=== PATIENT | female | born 1930 | race Caucasian/White ===

== ENCOUNTER 2016-11-17 10:42 | Emergency (ER) | payer MEDICARE ==
[2016-11-17 10:47] VITALS: RESP 20
[2016-11-17] MEDS ORDERED: SODIUM CHLORIDE 0.9% 1,000 ML IV STA (10:59)
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
[2016-11-17 11:26] LABS: Basophils # (A) 0.1 k/uL (0-0.2); Basophils % (A) 1 %; CH 29.9; Eosinophils # (A) 0.5 k/uL (0-0.7); Eosinophils % (A) 6 %; HCT 45.5 % (34.0-46.0); HDW 2.42; HGB 14.8 gm/dL (11.4-16.0); Luc # (Auto) 0.24; Luc % (Auto) 3; Lymphocytes # (A) 2.8 k/uL (1.0-4.8); Lymphocytes % (A) 30 %; MCH 30.5 pg (25.0-35.0); MCHC 32.5 g/dL (31.0-37.0); Monocytes # (A) 0.6 k/uL (0-1.0); Monocytes % (A) 6 %; Neutrophils # (A) 5.1 k/uL (1.3-7.7); Neutrophils % (A) 54 %; RBC 4.84 m/uL (3.80-5.40); RDW 12.8 % (11.5-15.5); WBC 9.4 k/uL (3.8-10.6); WBC (Perox) 9.05
[2016-11-17 11:38] LABS: ALT 20 U/L (9-52); AST 30 U/L (14-36); Alkaline Phosphatase 81 U/L (38-126); Amylase 57 U/L (30-110); Anion Gap 12 mmol/L; Blood Urea Nitrogen 17 mg/dL (7-17); Calcium 9.9 mg/dL (8.4-10.2); Carbon Dioxide 24 mmol/L (22-30); Chloride 106 mmol/L (98-107); Glucose 108 mg/dL (74-99); Non-African American GFR(MDRD) >60 (>60 ml/min/1.73 sqM); Sodium 142 mmol/L (137-145); Total Bilirubin 0.7 mg/dL (0.2-1.3); Total Protein 7.4 g/dL (6.3-8.2)
[2016-11-17 11:42] LABS: Appearance,Urine Clear (Clear); Bilirubin,Urine Negative (Negative); Glucose,Urine (UA) Negative (Negative); Ketones,Urine Negative (Negative); Leukocyte Esterase,Urine Negative (Negative); Nitrite,Urine Negative (Negative); PH, Urine 6.5 (5.0-8.0); Protein,Urine Negative (Negative); Specific Gravity,Urine 1.015 (1.001-1.035); UA Billing (MACRO vs. MICRO) CHEM; Urobilinogen,Urine <2.0 mg/dL (<2.0)
[2016-11-17 11:45] LABS: Potassium 4.8 mmol/L (3.5-5.1)
[2016-11-17 12:06] LABS: INR 1.1 (<1.1); Partial Thromboplastin Time 23.3 sec (22.0-30.0); Prothrombin Time 10.9 sec (9.0-12.0)
--- NOTE | 2016-11-17 12:27 | CT ---
EXAMINATION TYPE: CT abdomen pelvis wo con DATE OF EXAM: 11/17/2016 11:50 AM COMPARISON: NONE HISTORY: Left Lower Quadrant pain CT DLP: 606.4 mGycm Automated exposure control for dose reduction was used. TECHNIQUE: Helical acquisition of images from the lung bases through the pelvis. FINDINGS: Coronary artery calcifications are present, there may be mitral annular calcification. LUNG BASES: There is a lucency medial to the elevated right hemidiaphragm showing air density which i s indeterminate. Some minimal patchy density along the right hemidiaphragm may be due to atelectasis or scar rather than airspace disease. Subpleural nodules present in the left lower lobe measuring onl y approximately 4 mm on axial image 7 posteriorly. No pleural or pericardial effusion. AORTA: No significant abnormality is appreciated. LIVER/GB: No significant abnormality is appreciated. PANCREAS: No significant abnormality is seen. SPLEEN: No significant abnormality is seen. ADRENALS: No significant abnormality is seen. KIDNEYS: Suspect some associated cortical cysts, lack of contrast may limit sensitivity. REPRODUCTIVE ORGANS: Not seen. There is streak artifact due to patient's hip prostheses which may li pearl sensitivity. URINARY BLADDER: Limited evaluation BOWEL: There is a lucency at the expected location of the sphincter of Oddi which may be due to morales l gas but is nonspecific. No bowel obstruction. FREE AIR: No Free Air is visible. ASCITES: None visible. PELVIC ADENOPATHY: None visualized. RETROPERITONEAL ADENOPATHY: No Retroperitoneal Adenopathy visible. OSSEOUS STRUCTURES: Postop changes are noted, degenerative disc changes in the visualized spine. IMPRESSION: LIMITED EXAM DESCRIBED. POSTOP CHANGES. NONCONTRAST. FINDINGS AT THE RIGHT LUNG BASE MAY BE DUE TO ELEVATED RIGHT HEMIDIAPHRAGM. FOLLOW-UP INDICATED.
[2016-11-17 13:22] VITALS: BP 171/81; PULSE 63; TEMP 97.9
== END 2016-11-17 13:10 | disposition home or self-care (01) ==
LOC: EC 10:42
DX: R10.32 Left lower quadrant pain (principal); I10 Essential (primary) hypertension; R91.8 Other nonspecific abnormal finding of lung field; K21.9 Gastro-esophageal reflux disease without esophagitis; E78.5 Hyperlipidemia, unspecified; F41.9 Anxiety disorder, unspecified; F32.9 Major depressive disorder, single episode, unspecified; Z79.899 Other long term (current) drug therapy
CPT/HCPCS: 36415; 74176; 80053; 81003; 82150; 82306; 83690; 85025; 85610; 85730; 87040; 96360; 99284

== ENCOUNTER → 2017-08-03 | Outpatient (CLI) | payer MEDICARE | END | disposition home or self-care (01) | LOC: LABWHC1 10:30 | PROVIDERS: ATTEND Family Medicine | DX: R79.89 Other specified abnormal findings of blood chemistry (principal) | CPT/HCPCS: 36415; 82310 ==

== ENCOUNTER 2017-11-02 21:52 | Emergency (ER) | payer MEDICARE ==
[2017-11-02 22:01] VITALS: RESP 18
--- NOTE | 2017-11-02 22:16 | ED ---
Fall HPI - General Chief Complaint: Fall Stated Complaint: Fall Time Seen by Provider: 11/02/17 22:02 Source: patient, EMS Mode of arrival: EMS - History of Present Illness Initial Comments: This patient is an 87-year-old woman who is brought to be evaluated after she had a fall tonight. The patient states that she had stood up, lost her balance , and then fell striking her head against the bedside table. She is uncertain if she briefly lost consciousness. She states that she was then helped up and was able to stand. She denies any pain right now. MD Complaint: fall -: minutes(s) Fall From: standing When Fall Occurred: just prior to arrival Fall Witnessed: no Place Fall Occurred: home Loss of Consciousness: unsure Prolonged Down Time?: no Symptoms Prior to Fall: none Location: head Severity: mild Context: tripped/slipped Associated Symptoms: denies - Related Data Home Medications Medication Instructions Recorded Confirmed ARIPiprazole [Abilify] 5 mg PO DAILY 11/30/14 11/02/17 DULoxetine HCL [Cymbalta] 60 mg PO DAILY 11/30/14 11/02/17 Nadolol [Corgard] 40 mg PO BID 11/30/14 11/02/17 Omeprazole [PriLOSEC] 20 mg PO DAILY 11/30/14 11/02/17 QUEtiapine [SEROquel] 25 - 50 mg PO HS 11/30/14 11/02/17 Furosemide [Lasix] 20 mg PO DAILY PRN MDD 3 X PER WEEK 08/22/16 11/02/17 Lisinopril [Zestril] 10 mg PO DAILY 08/22/16 11/02/17 Mirtazapine 45 mg PO HS 11/17/16 11/02/17 LORazepam [Ativan] 1 mg PO TID PRN 11/02/17 11/02/17 Lactulose 20 gm PO DAILY 11/02/17 11/02/17 traMADol HCL [Ultram] 50 mg PO Q6HR PRN 11/02/17 11/02/17 Previous Rx's Medication Instructions Recorded amLODIPine [Norvasc] 10 mg PO DAILY #30 tab 12/03/14 Allergies Allergy/AdvReac Type Severity Reaction Status Date / Time No Known Allergies Allergy Verified 11/17/16 13:04 Review of Systems ROS Statement: Those systems with pertinent positive or pertinent negative responses have been documented in the HPI. ROS Other: All systems not noted in ROS Statement are negative. Eyes: Denies: vision change Respiratory: Denies: cough, dyspnea Cardiovascular: Denies: chest pain, palpitations, syncope Gastrointestinal: Denies: abdominal pain, vomiting, diarrhea Musculoskeletal: Denies: back pain, arthralgia Neurological: Denies: headache, weakness, numbness, paresthesias Past Medical History Past Medical History: GERD/Reflux, Hyperlipidemia, Hypertension Additional Past Medical History / Comment(s): asymptomatic UTI's, History of Any Multi-Drug Resistant Organisms: None Reported Past Surgical History: Appendectomy, Back Surgery, Bowel Resection, Hysterectomy , Joint Replacement, Orthopedic Surgery, Tonsillectomy Additional Past Surgical History / Comment(s): meckels diverticulum, 2 colon resections, 2 small bowel resections, bilateral cataract removal, colonoscopies , egd. Past Anesthesia/Blood Transfusion Reactions: Postoperative Nausea & Vomiting ( PONV) Additional Past Anesthesia/Blood Transfusion Reaction / Comment(s): Pt states years ago she had PONV but not with later surgeries. Pt's des states that the last couple of surgeries pt has had severe hallucinations post op for several days. Past Psychological History: Anxiety, Depression Smoking Status: Never smoker Past Alcohol Use History: None Reported Past Drug Use History: None Reported - Past Family History Father Family Medical History: COPD, CVA/TIA Additional Family Medical History / Comment(s): Father was a smoker. Mother Family Medical History: Unable to Obtain Additional Family Medical History / Comment(s): Pt was raised by stepmother and does not know maternal mother's hx. General Exam Limitations: no limitations General appearance: alert, in no apparent distress Head exam: Present: normocephalic, other (Scalp contusion) Eye exam: Present: normal appearance, PERRL, EOMI. Absent: scleral icterus, conjunctival injection Neck exam: Present: other (Patient is in cervical collar). Absent: tenderness Respiratory exam: Present: normal lung sounds bilaterally. Absent: respiratory distress, wheezes, rales, rhonchi, stridor, chest wall tenderness Cardiovascular Exam: Present: regular rate, normal rhythm, normal heart sounds. Absent: systolic murmur, diastolic murmur, rubs, gallop GI/Abdominal exam: Present: soft, normal bowel sounds. Absent: tenderness, guarding, rebound, mass Extremities exam: Present: normal inspection, normal capillary refill. Absent: pedal edema, calf tenderness Back exam: Present: normal inspection. Absent: CVA tenderness (R), CVA tenderness (L) Neurological exam: Present: alert Skin exam: Present: warm, dry, intact, normal color. Absent: rash Course Vital Signs 11/02/17 21:56 Temperature 97.6 F Pulse Rate 61 Respiratory 18 Rate Blood Pressure 158/77 O2 Sat by Pulse 93 L Oximetry - Reevaluation(s) Reevaluation #1: 11/02/17 23:02 I was informed that the patient's daughter was at the bedside, and I did go and review with her. She states that the patient seems to be at her baseline, and that she does have frequent falls. The patient's daughter is somewhat upset that EMS was not able to tell her how the fall was discovered or anything more about how she came to be here. I unfortunately do not have those details to share with her either. Again she does state that the patient seems to be at her baseline. I reviewed the CT and clinically cleared the patient C-spine. The patient is without complaint, and did request water. Disposition Clinical Impression: Fall Disposition: HOME SELF-CARE Condition: Fair Instructions: Fall Prevention for Older Adults (ED) Referrals: Edi Mata DO [Primary Care Provider] - 1-2 days
--- NOTE | 2017-11-02 22:51 | CT ---
EXAMINATION TYPE: CT brain linda stevenson DATE OF EXAM: 11/02/2017 COMPARISON: 08/22/2016 HISTORY: Fall neck pain. Headache. CT DLP: 1266.9 mGycm Automated exposure control for dose reduction was used. TECHNIQUE: CT scan of the head and cervical spine are performed without contrast. FINDINGS: There is cerebral cortical atrophy. There is no mass effect norming line shift. There is some hypodensity in the periventricular white matter. This is more noticeable in the right internal c apsule. The calvarium is intact. There is old anterior fusion at C4-5 C5-6. Vertebra have fairly normal alignment. The posterior eleme nts are intact. There is hypertrophic facet arthropathy. The skull base is intact. IMPRESSION: Cerebral atrophy and chronic small vessel ischemia. No acute intracranial abnormality. Previous surgery. Spondylotic changes in the cervical spine. No fracture seen. No significant change compared to old exam.
[2017-11-02 23:10] VITALS: BP 173/77; PULSE 55; TEMP 97.8
== END 2017-11-02 23:18 | disposition home or self-care (01) ==
LOC: EC 21:52
DX: S00.03XA Contusion of scalp, initial encounter (principal); K21.9 Gastro-esophageal reflux disease without esophagitis; F32.9 Major depressive disorder, single episode, unspecified; I10 Essential (primary) hypertension; F41.9 Anxiety disorder, unspecified; Z79.899 Other long term (current) drug therapy; W01.198A Fall on same level from slipping, tripping and stumbling with subsequent striking against other object, initial encounter; Y92.009 Unspecified place in unspecified non-institutional (private) residence as the place of occurrence of the external cause
CPT/HCPCS: 70450; 72125; 99283

== ENCOUNTER → 2017-11-16 | Outpatient (CLI) | payer MEDICARE ==
[2017-11-16 09:49] LABS: ALT 22 U/L (9-52); AST 27 U/L (14-36); Albumin 4.5 g/dL (3.5-5.0); Alkaline Phosphatase 90 U/L (38-126); Anion Gap 13 mmol/L; Blood Urea Nitrogen 17 mg/dL (7-17); Calcium 10.6 mg/dL (8.4-10.2); Carbon Dioxide 26 mmol/L (22-30); Chloride 105 mmol/L (98-107); Cholesterol 185 mg/dL (<200); Glucose 116 mg/dL (74-99); HDL Cholesterol 81 mg/dL (40-60); LDL Cholesterol,Calculated 75 mg/dL (0-99); Potassium 5.1 mmol/L (3.5-5.1); Sodium 144 mmol/L (137-145); Total Bilirubin 0.7 mg/dL (0.2-1.3); Total Protein 7.6 g/dL (6.3-8.2); Triglycerides 146 mg/dL (<150)
[2017-11-16 09:57] LABS: Basophils # (A) 0.1 k/uL (0-0.2); Basophils % (A) 1 %; Eosinophils # (A) 0.6 k/uL (0-0.7); Eosinophils % (A) 7 %; HCT 48.8 % (34.0-46.0); HGB 15.1 gm/dL (11.4-16.0); Lymphocytes # (A) 2.1 k/uL (1.0-4.8); Lymphocytes % (A) 25 %; MCH 29.4 pg (25.0-35.0); MCHC 30.9 g/dL (31.0-37.0); MCV 95.1 fL (80.0-100.0); Mean Platelet Volume 9.3; Monocytes # (A) 0.5 k/uL (0-1.0); Monocytes % (A) 6 %; Neutrophils # (A) 5.1 k/uL (1.3-7.7); Neutrophils % (A) 61 %; Platelet Count 209 k/uL (150-450); RBC 5.13 m/uL (3.80-5.40); RDW 12.5 % (11.5-15.5); WBC 8.4 k/uL (3.8-10.6)
== END | disposition home or self-care (01) ==
LOC: LABWHC1 08:23
PROVIDERS: ATTEND Family Medicine
DX: Z00.01 Encounter for general adult medical examination with abnormal findings (principal); I10 Essential (primary) hypertension; E78.4 Other hyperlipidemia
CPT/HCPCS: 36415; 80053; 80061; 82306; 84443; 85025

== ENCOUNTER → 2017-12-04 | Outpatient (CLI) | payer MEDICARE ==
[2017-12-04 11:14] LABS: Calcium 10.3 mg/dL (8.4-10.2)
[2017-12-04 12:05] LABS: Ionized Calcium 5.5 mg/dL (4.5-5.3)
== END | disposition home or self-care (01) ==
LOC: LABWHC1 10:32
PROVIDERS: ATTEND Family Medicine
DX: R89.9 Unspecified abnormal finding in specimens from other organs, systems and tissues (principal)
CPT/HCPCS: 36415; 82310; 82330; 83970

== ENCOUNTER 2018-04-22 15:13 | Observation (INO) | payer MEDICARE ==
[2018-04-22] MEDS ORDERED: MORPHINE SULFATE 2 MG/ML SYRINGE IVP STA (15:58)
[2018-04-22] MEDS ORDERED: ACETAMINOPHEN TAB 500 MG TAB PO STA (16:29)
[2018-04-22 16:34] LABS: Basophils # (A) 0.1 k/uL (0-0.2); Basophils % (A) 1 %; Eosinophils # (A) 0.6 k/uL (0-0.7); Eosinophils % (A) 5 %; HCT 43.8 % (34.0-46.0); HGB 13.8 gm/dL (11.4-16.0); Lymphocytes # (A) 2.6 k/uL (1.0-4.8); Lymphocytes % (A) 24 %; MCH 29.1 pg (25.0-35.0); MCHC 31.5 g/dL (31.0-37.0); MCV 92.2 fL (80.0-100.0); Mean Platelet Volume 8.8; Monocytes # (A) 0.7 k/uL (0-1.0); Monocytes % (A) 6 %; Neutrophils # (A) 6.8 k/uL (1.3-7.7); Neutrophils % (A) 62 %; Platelet Count 224 k/uL (150-450); RBC 4.75 m/uL (3.80-5.40); RDW 12.7 % (11.5-15.5); WBC 10.9 k/uL (3.8-10.6)
[2018-04-22 16:47] LABS: Calcium 9.9 mg/dL (8.4-10.2); Total Bilirubin 0.4 mg/dL (0.2-1.3); Total Protein 6.6 g/dL (6.3-8.2)
[2018-04-22 16:49] LABS: Potassium 4.3 mmol/L (3.5-5.1)
[2018-04-22] MEDS: SODIUM CHLORIDE 0.9% 1,000 ML IV SCH ×2 (17:15→21:05)
--- NOTE | 2018-04-22 18:07 | CT ---
EXAMINATION TYPE: CT abdomen pelvis w con DATE OF EXAM: 04/22/2018 COMPARISON: 11/17/2016 CT abdomen pelvis wo con HISTORY: Generalized Abdominal and Rectal pain. CT DLP: 1145 mGycm Automated exposure control for dose reduction was used. TECHNIQUE: Helical acquisition of images was performed from the lung bases through the pelvis. CONTRAST: Performed without Oral Contrast and with IV Contrast, patient injected with 100 mL of Isovu e 300. FINDINGS: LUNG BASES: No significant abnormality is appreciated. Coronary calcifications noted. LIVER/GB: No significant abnormality is appreciated. PANCREAS: No significant abnormality is seen. SPLEEN: No significant abnormality is seen. ADRENALS: No significant abnormality is seen. KIDNEYS: In the posterior parenchyma of the upper pole left kidney is a 3.5 x 3.0 x 3.0 cm heterogene ously enhancing solid mass renal cell carcinoma until proven otherwise. The margins of the mass appea r relatively smoothly marginated and the masses not appear to extend beyond the renal capsule. The re nal vasculature is unremarkable. No regional adenopathy evident. Remainder of the left kidney is unre markable. The right kidney shows a few simple appearing subcentimeter cysts but is otherwise unremark able. The collecting systems are negative. The urinary bladder is negative as seen, but bilateral THR metallic artifact obscures visualization in the lower pelvis. PERITONEAL CAVITY: No free air is visualized. No fluid. RETROPERITONEAL ADENOPATHY: None visualized REPRODUCTIVE ORGANS: No significant abnormality is seen PELVIC ADENOPATHY: None visualized. OSSEOUS STRUCTURES: No focal lesions. Bilateral THR metallic artifact obscures visualization in the lower pelvis. BOWEL: No significant abnormality is seen, but prominent volume of rectal stool noted. VASCULATURE: No acute findings. Results were discussed with the ordering physician in order to ensure intact communications. IMPRESSION: 1. LEFT RENAL MASS SUSPICIOUS FOR RENAL CELL CARCINOMA. 2. CORONARY CALCIFICATIONS NOTED. 3. NO CT CORRELATE FOR THE PATIENT'S ABDOMINAL/RECTAL PAIN.
[2018-04-22 18:15] LABS: Appearance,Urine Clear (Clear); Bilirubin,Urine Negative (Negative); Blood,Urine Negative (Negative); Color,Urine Light Yellow; Glucose,Urine (UA) Negative (Negative); Hyaline Casts,Urine 1 /lpf (0-2); Ketones,Urine Negative (Negative); Leukocyte Esterase,Urine Negative (Negative); Nitrite,Urine Negative (Negative); Protein,Urine Negative (Negative); Specific Gravity,Urine 1.015 (1.001-1.035); Squamous Epithelial Cell,Urine <1 /hpf (0-4); Urobilinogen,Urine <2.0 mg/dL (<2.0); WBC,Urine <1 /hpf (0-5)
--- NOTE | 2018-04-22 19:12 | ED ---
General Adult HPI - General Chief complaint: Recheck/Abnormal Lab/Rx Stated complaint: hemorrhoid Time Seen by Provider: 04/22/18 15:33 Source: patient, EMS Mode of arrival: EMS Limitations: no limitations - History of Present Illness Initial comments: 88 years old female comes in with the rectal pain, she said pain is worse with the moving her bowels and then she is also complaining about abdominal pain this pain is quite confused it's not local or focal she has a history of multiple surgeries she has a multiple scars and she has a history of multiple surgeries on her abdomen him and has ongoing abdominal pain for about a week now she had a colonoscopy done 2 months ago it was normal she also had a history of bowel resections she denies any headaches no neck stiffness or chest pain or shortness of breath has a diffuse abdominal pain no symptoms of TIA or CVA - Related Data Home Medications Medication Instructions Recorded Confirmed ARIPiprazole [Abilify] 5 mg PO DAILY 11/30/14 04/22/18 DULoxetine HCL [Cymbalta] 60 mg PO DAILY 11/30/14 04/22/18 Nadolol [Corgard] 40 mg PO BID 11/30/14 04/22/18 Omeprazole [PriLOSEC] 20 mg PO DAILY 11/30/14 04/22/18 QUEtiapine [SEROquel] 50 mg PO HS 11/30/14 04/22/18 Furosemide [Lasix] 20 mg PO DAILY PRN MDD 3 X PER WEEK 08/22/16 04/22/18 Lisinopril [Zestril] 10 mg PO DAILY 08/22/16 04/22/18 Mirtazapine 45 mg PO HS 11/17/16 04/22/18 LORazepam [Ativan] 1 mg PO TID PRN 11/02/17 04/22/18 Lactulose 20 gm PO DAILY 11/02/17 04/22/18 traMADol HCL [Ultram] 50 mg PO Q6HR PRN 11/02/17 04/22/18 Pravastatin Sodium [Pravachol] 20 mg PO HS 04/22/18 04/22/18 Primidone [Mysoline] 25 mg PO BID 04/22/18 04/22/18 buPROPion HCL [Wellbutrin XL] 150 mg PO DAILY 04/22/18 04/22/18 Previous Rx's Medication Instructions Recorded amLODIPine [Norvasc] 10 mg PO DAILY #30 tab 12/03/14 Allergies Allergy/AdvReac Type Severity Reaction Status Date / Time No Known Allergies Allergy Verified 04/22/18 16:25 Review of Systems ROS Statement: Those systems with pertinent positive or pertinent negative responses have been documented in the HPI. ROS Other: All systems not noted in ROS Statement are negative. Past Medical History Past Medical History: GERD/Reflux, Hyperlipidemia, Hypertension Additional Past Medical History / Comment(s): asymptomatic UTI's, History of Any Multi-Drug Resistant Organisms: None Reported Past Surgical History: Appendectomy, Back Surgery, Bowel Resection, Hysterectomy , Joint Replacement, Orthopedic Surgery, Tonsillectomy Additional Past Surgical History / Comment(s): meckels diverticulum, 2 colon resections, 2 small bowel resections, bilateral cataract removal, colonoscopies , egd. Past Anesthesia/Blood Transfusion Reactions: Postoperative Nausea & Vomiting ( PONV) Additional Past Anesthesia/Blood Transfusion Reaction / Comment(s): Pt states years ago she had PONV but not with later surgeries. Pt's des states that the last couple of surgeries pt has had severe hallucinations post op for several days. Past Psychological History: Anxiety, Depression Smoking Status: Never smoker Past Alcohol Use History: None Reported Past Drug Use History: None Reported - Past Family History Father Family Medical History: COPD, CVA/TIA Additional Family Medical History / Comment(s): Father was a smoker. Mother Family Medical History: Unable to Obtain Additional Family Medical History / Comment(s): Pt was raised by stepmother and does not know maternal mother's hx. General Exam - General Exam Comments Initial Comments: General: The patient is awake and alert, in no distress, and does not appear acutely ill. Skin: Skin is warm and dry and no rashes or lesions are noted. Eye: Pupils are equal, round and reactive to light, extra-ocular movements are intact; there is normal conjunctiva bilaterally. Ears, nose, mouth and throat: There are moist mucous membranes and no oral lesions. Neck: The neck is supple, there is no tenderness or JVD. Cardiovascular: There is a regular rate and rhythm. No murmur, rub or gallop is appreciated. Respiratory: To auscultation bilateral, no wheezing no rhonchi no distress respiratory belcher noticed Gastrointestinal: Mildly tender diffusely tender abdomen all over him and exam didn't show any clear external hemorrhoids . Back: There is no tenderness to palpation in the midline. There is no obvious deformity. Musculoskeletal: Normal ROM, no tenderness, There is no pedal edema. There is no calf tenderness or swelling. No cords were appreciated. Neurological: CN II-XII intact, Cranial nerves III through XII are intact. There are no obvious motor or sensory deficits. Coordination appears grossly intact. Speech is normal. Psychiatric: Cooperative, appropriate mood & affect, normal judgment. Limitations: no limitations Course Vital Signs 04/22/18 04/22/18 04/22/18 15:27 17:51 18:40 Temperature 97.9 F 98.6 F Pulse Rate 59 L 65 62 Respiratory 18 18 18 Rate Blood Pressure 132/63 163/74 157/72 O2 Sat by Pulse 92 L 93 L 94 L Oximetry Labs are reviewed along with the imaging CBC, CMP, urinalysis are normal CT abdomen confirms left renal mass is a suspicion of renal cell, all these findings were discussed with the patient she agreed to get admitted so we could expedite the investigations will consult Dr. Velarde he is the urologist construction sales manager today and patient be admitted to Dr. Posey Medical Decision Making - Lab Data Result diagrams: 04/22/18 16:22 04/22/18 16:22 Lab Results 04/22/18 04/22/18 04/22/18 Range/Units 16:22 16:22 16:22 WBC 10.9 H (3.8-10.6) k/uL RBC 4.75 (3.80-5.40) m/uL Hgb 13.8 (11.4-16.0) gm/dL Hct 43.8 (34.0-46.0) % MCV 92.2 (80.0-100.0) fL MCH 29.1 (25.0-35.0) pg MCHC 31.5 (31.0-37.0) g/dL RDW 12.7 (11.5-15.5) % Plt Count 224 (150-450) k/uL Neutrophils % 62 % Lymphocytes % 24 % Monocytes % 6 % Eosinophils % 5 % Basophils % 1 % Neutrophils # 6.8 (1.3-7.7) k/uL Lymphocytes # 2.6 (1.0-4.8) k/uL Monocytes # 0.7 (0-1.0) k/uL Eosinophils # 0.6 (0-0.7) k/uL Basophils # 0.1 (0-0.2) k/uL Sodium 139 (137-145) mmol/L Potassium 4.3 (3.5-5.1) mmol/L Chloride 106 (98-107) mmol/L Carbon Dioxide 25 (22-30) mmol/L Anion Gap 8 mmol/L BUN 21 H (7-17) mg/dL Creatinine 0.80 (0.52-1.04) mg/dL Est GFR (CKD-EPI)AfAm 76 (>60 ml/min/1.73 sqM) Est GFR (CKD-EPI)NonAf 66 (>60 ml/min/1.73 sqM) Glucose 126 H (74-99) mg/dL Plasma Lactic Acid Kody 1.3 (0.7-2.0) mmol/L Calcium 9.9 (8.4-10.2) mg/dL Total Bilirubin 0.4 (0.2-1.3) mg/dL AST 26 (14-36) U/L ALT 24 (9-52) U/L Alkaline Phosphatase 74 (38-126) U/L Total Protein 6.6 (6.3-8.2) g/dL Albumin 4.0 (3.5-5.0) g/dL Amylase 53 (30-110) U/L Lipase 145 (23-300) U/L Urine Color Urine Appearance (Clear) Urine pH (5.0-8.0) Ur Specific Elizabeth (1.001-1.035) Urine Protein (Negative) Urine Glucose (UA) (Negative) Urine Ketones (Negative) Urine Blood (Negative) Urine Nitrite (Negative) Urine Bilirubin (Negative) Urine Urobilinogen (<2.0) mg/dL Ur Leukocyte Esterase (Negative) Urine WBC (0-5) /hpf Ur Squamous Epith Cells (0-4) /hpf Hyaline Casts (0-2) /lpf 04/22/ Range/Units 17:30 WBC (3.8-10.6) k/uL RBC (3.80-5.40) m/uL Hgb (11.4-16.0) gm/dL Hct (34.0-46.0) % MCV (80.0-100.0) fL MCH (25.0-35.0) pg MCHC (31.0-37.0) g/dL RDW (11.5-15.5) % Plt Count (150-450) k/uL Neutrophils % % Lymphocytes % % Monocytes % % Eosinophils % % Basophils % % Neutrophils # (1.3-7.7) k/uL Lymphocytes # (1.0-4.8) k/uL Monocytes # (0-1.0) k/uL Eosinophils # (0-0.7) k/uL Basophils # (0-0.2) k/uL Sodium (137-145) mmol/L Potassium (3.5-5.1) mmol/L Chloride (98-107) mmol/L Carbon Dioxide (22-30) mmol/L Anion Gap mmol/L BUN (7-17) mg/dL Creatinine (0.52-1.04) mg/dL Est GFR (CKD-EPI)AfAm (>60 ml/min/1.73 sqM) Est GFR (CKD-EPI)NonAf (>60 ml/min/1.73 sqM) Glucose (74-99) mg/dL Plasma Lactic Acid Kody (0.7-2.0) mmol/L Calcium (8.4-10.2) mg/dL Total Bilirubin (0.2-1.3) mg/dL AST (14-36) U/L ALT (9-52) U/L Alkaline Phosphatase (38-126) U/L Total Protein (6.3-8.2) g/dL Albumin (3.5-5.0) g/dL Amylase (30-110) U/L Lipase (23-300) U/L Urine Color Light Yellow Urine Appearance Clear (Clear) Urine pH 7.0 (5.0-8.0) Ur Specific Elizabeth 1.015 (1.001-1.035) Urine Protein Negative (Negative) Urine Glucose (UA) Negative (Negative) Urine Ketones Negative (Negative) Urine Blood Negative (Negative) Urine Nitrite Negative (Negative) Urine Bilirubin Negative (Negative) Urine Urobilinogen <2.0 (<2.0) mg/dL Ur Leukocyte Esterase Negative (Negative) Urine WBC <1 (0-5) /hpf Ur Squamous Epith Cells <1 (0-4) /hpf Hyaline Casts 1 (0-2) /lpf Disposition Clinical Impression: Renal mass Disposition: ADMITTED IP TO THIS HOSP Condition: Good Referrals: Edi Mata DO [Primary Care Provider] - 1-2 days
[2018-04-22] MEDS ORDERED: ONDANSETRON 4 MG/2 ML VIAL IVP PRN (19:22)
[2018-04-22] MEDS ORDERED: NALOXONE 0.4 MG/ML 1 ML VIAL IV PRN (19:22)
[2018-04-22] MEDS ORDERED: traMADol 50 MG TAB PO PRN (19:28)
[2018-04-22] MEDS ORDERED: FUROSEMIDE 20 MG TAB PO PRN (19:28)
[2018-04-22] MEDS: PRAVASTATIN SODIUM 20 MG TAB PO SCH (22:39)
[2018-04-22] MEDS: PRIMIDONE 25 MG TAB PO SCH (22:39)
[2018-04-22] MEDS: QUEtiapine 50 MG TAB PO SCH (22:39)
[2018-04-22] MEDS: NADOLOL 20 MG TAB PO SCH (22:39)
[2018-04-22] MEDS: MIRTAZAPINE 45 MG TABLET PO SCH (22:39)
[2018-04-22 23:06] VITALS: RESP 16
[2018-04-23] MEDS: SODIUM CHLORIDE 0.9% 1,000 ML IV SCH ×2 (06:55→16:18)
[2018-04-23] MEDS: PRIMIDONE 25 MG TAB PO SCH ×2 (07:47→20:08)
[2018-04-23] MEDS: NADOLOL 20 MG TAB PO SCH ×2 (07:47→20:08)
[2018-04-23] MEDS: LISINOPRIL 10 MG TAB PO SCH (07:48)
[2018-04-23] MEDS: DULoxetine HCL 60 MG CAPSULE.DR PO SCH (07:48)
[2018-04-23] MEDS: ARIPiprazole 5 MG TAB PO SCH (07:48)
[2018-04-23] MEDS: PANTOPRAZOLE 40 MG TABLET PO SCH (07:48)
[2018-04-23] MEDS: amLODIPine 10 MG TAB PO SCH (07:48)
[2018-04-23] MEDS: LACTULOSE 200 GM/300 ML (FROM 1/2 GAL JUG) PO SCH (10:07)
[2018-04-23] MEDS: buPROPion XL 150 MG TAB.ER.24H PO SCH (10:07)
[2018-04-23] MEDS: LORazepam 1 MG TAB PO PRN ×2 (10:15→20:08)
[2018-04-23] MEDS: ACETAMINOPHEN TAB 325 MG TAB PO PRN ×2 (13:56→20:57)
--- NOTE | 2018-04-23 15:54 | P.GSCN ---
History of Present Illness Consult date: 04/23/18 Reason for Consult: Left renal mass History of present illness: This confused 88-year-old female was admitted to the hospital with abdominal discomfort and rectal discomfort. She had been having this for some time. She came in the hospital for this reason. Apparently she is confused at the time of admission. A computed tomography scan was done and identified a 3.9 cm left renal mass. For this reason we are asked see the patient. Her white count was 10 9. A urine was clear. Her abdominal and rectal discomfort are unrelated to be coincidentally identified renal mass. Review of Systems - Constitutional Reports chronic pain, Reports lethargy - Gastrointestinal Reports as per HPI - Genitourinary Genitourinary: Reports as per HPI - Psychiatric Reports depression Past Medical History Past Medical History: GERD/Reflux, Hyperlipidemia, Hypertension Additional Past Medical History / Comment(s): UTI's, meckels diverticulum, past fallsl /broke lt hip had sx , past lt hand fx- no sx .past migraines. pt stated "has diffiuclty swallowing food-coughs and chokes easily" History of Any Multi-Drug Resistant Organisms: None Reported Past Surgical History: Appendectomy, Back Surgery, Bowel Resection, Hysterectomy , Orthopedic Surgery, Tonsillectomy Additional Past Surgical History / Comment(s): 2 colon resections, 2 small bowel resections, cataracts,bilateral cataract removal, colonoscopies, egd. lt hip sx d/t broken hip but pt not sure what was done but per 2012 hx had lt hemiarthroplasty,also listed were lt shoulder replacement,hx rt hip replacment , neck fusion, partial knee replacement. Past Anesthesia/Blood Transfusion Reactions: Postoperative Nausea & Vomiting ( PONV) Additional Past Anesthesia/Blood Transfusion Reaction / Comm: Pt states years ago she had PONV but not with later surgeries. Pt's des states that the last couple of surgeries pt has had severe hallucinations post op for several days. Smoking Status: Never smoker - Past Family History Father Family Medical History: COPD, CVA/TIA Additional Family Medical History / Comment(s): Father was a smoker. Mother Family Medical History: Unable to Obtain Additional Family Medical History / Comment(s): Pt was raised by stepmother and does not know maternal mother's hx. Medications and Allergies Home Medications Medication Instructions Recorded Confirmed Type RX: ARIPiprazole [Abilify] 5 mg PO DAILY 11/30/14 04/22/18 History RX: DULoxetine HCL [Cymbalta] 60 mg PO DAILY 11/30/14 04/22/18 History RX: Nadolol [Corgard] 40 mg PO BID 11/30/14 04/22/18 History RX: Omeprazole [PriLOSEC] 20 mg PO DAILY 11/30/14 04/22/18 History RX: QUEtiapine [SEROquel] 50 mg PO HS 11/30/14 04/22/18 History RX: amLODIPine [Norvasc] 10 mg PO DAILY #30 tab 12/03/14 04/22/18 Rx Furosemide [Lasix] 20 mg PO DAILY PRN MDD 3 X PER WEEK 08/22/16 04/22/18 History RX: Lisinopril [Zestril] 10 mg PO DAILY 08/22/16 04/22/18 History RX: Mirtazapine 45 mg PO HS 11/17/16 04/22/18 History LORazepam [Ativan] 1 mg PO TID PRN 11/02/17 04/22/18 History RX: Lactulose 20 gm PO DAILY 11/02/17 04/22/18 History traMADol HCL [Ultram] 50 mg PO Q6HR PRN 11/02/17 04/22/18 History Pravastatin Sodium [Pravachol] 20 mg PO HS 04/22/18 04/22/18 History Primidone [Mysoline] 25 mg PO BID 04/22/18 04/22/18 History buPROPion HCL [Wellbutrin XL] 150 mg PO DAILY 04/22/18 04/22/18 History Allergies Allergy/AdvReac Type Severity Reaction Status Date / Time No Known Allergies Allergy Verified 04/22/18 16:25 Surgical - Exam Vital Signs Temp Pulse Resp BP Pulse Ox 97.9 F 59 L 18 132/63 92 L 04/22/18 15:27 04/22/18 15:27 04/22/18 15:27 04/22/18 15:27 04/22/18 15:27 - General well developed, well nourished, no distress - Eyes PERRL - ENT normal mucosa - Neck trachea midline - Respiratory normal expansion, normal respiratory effort - Cardiovascular Rhythm: regular - Abdomen Abdomen: soft, non tender - Integumentary no rash, no growths Results - Labs 04/22/18 16:22 04/22/18 16:22 Abnormal Lab Results - Last 24 Hours (Table) 04/22/18 04/22/18 Range/Units 16:22 16:22 WBC 10.9 H (3.8-10.6) k/uL BUN 21 H (7-17) mg/dL Glucose 126 H (74-99) mg/dL Diabetes panel 04/22/18 Range/Units 16:22 Sodium 139 (137-145) mmol/L Potassium 4.3 (3.5-5.1) mmol/L Chloride 106 (98-107) mmol/L Carbon Dioxide 25 (22-30) mmol/L BUN 21 H (7-17) mg/dL Creatinine 0.80 (0.52-1.04) mg/dL Glucose 126 H (74-99) mg/dL Calcium 9.9 (8.4-10.2) mg/dL AST 26 (14-36) U/L ALT 24 (9-52) U/L Alkaline Phosphatase 74 (38-126) U/L Total Protein 6.6 (6.3-8.2) g/dL Albumin 4.0 (3.5-5.0) g/dL Calcium panel 04/22/18 Range/Units 16:22 Calcium 9.9 (8.4-10.2) mg/dL Albumin 4.0 (3.5-5.0) g/dL Pituitary panel 04/22/18 Range/Units 16:22 Sodium 139 (137-145) mmol/L Potassium 4.3 (3.5-5.1) mmol/L Chloride 106 (98-107) mmol/L Carbon Dioxide 25 (22-30) mmol/L BUN 21 H (7-17) mg/dL Creatinine 0.80 (0.52-1.04) mg/dL Glucose 126 H (74-99) mg/dL Calcium 9.9 (8.4-10.2) mg/dL Adrenal panel 04/22/18 Range/Units 16:22 Sodium 139 (137-145) mmol/L Potassium 4.3 (3.5-5.1) mmol/L Chloride 106 (98-107) mmol/L Carbon Dioxide 25 (22-30) mmol/L BUN 21 H (7-17) mg/dL Creatinine 0.80 (0.52-1.04) mg/dL Glucose 126 H (74-99) mg/dL Calcium 9.9 (8.4-10.2) mg/dL Total Bilirubin 0.4 (0.2-1.3) mg/dL AST 26 (14-36) U/L ALT 24 (9-52) U/L Alkaline Phosphatase 74 (38-126) U/L Total Protein 6.6 (6.3-8.2) g/dL Albumin 4.0 (3.5-5.0) g/dL - Imaging CT scan - abdomen: report reviewed, image reviewed CT scan - pelvis: report reviewed, image reviewed Assessment and Plan Plan: Impression: Left renal mass, asymptomatic multiple medical issues, advanced age Recommendations: I had a lengthy discussion with the patient and her daughter about the diagnosis of a probable left renal cell carcinoma. This is asymptomatic. The patient is not interested in any treatment at her age with her health. She is more interested in having her hemorrhoids dealt with. I do not recommend further evaluation of this lesion unless there are symptoms to suggest ration of the disease. At her age and with her health I think this is an appropriate decision.
--- NOTE | 2018-04-23 17:47 | HP ---
HISTORY AND PHYSICAL DATE OF ADMISSION: 04/22/2018 DATE OF SERVICE: 04/23/2018 PRESENTING COMPLAINT: Abdominal pain. HISTORY OF PRESENTING COMPLAINT: This is a pleasant 88-year-old patient of Dr. Mata who lives at [facility]. She uses a 4-wheel walker to get about. The patient's daughter is at the bedside to help with the history. Chronic stable medical conditions include GERD, hypertension, hyperlipidemia, hard of hearing. Patient is doubly incontinent and wears Depends. Patient had some abdominal pain, localized, more to the center lower part of the abdomen. No radiation. No nausea or vomiting. She presented to the ER. The patient was found to have a very large hemorrhoid and that is really bothering the patient, is somewhat tender. No bleeding. CT scan of the abdomen was done in the ER, and she was found to have a left renal mass. Urology was consulted. The patient's appetite is otherwise fair. The patient has seen Dr. Hawk in the past and banding was done. That banding dropped off. Denies any fever or chills. REVIEW OF SYSTEMS: CONSTITUTIONAL: Tired. HEENT: Decreased hearing. RESPIRATORY: None. CARDIOVASCULAR: None. GASTROINTESTINAL: As above. Patient sometimes has trouble swallowing. GENITOURINARY: Some incontinence. MUSCULOSKELETAL: Some pain in the joints. HEMATOLOGICAL: None. LYMPHATICS: None. PSYCHIATRY: Slightly forgetful. NEUROLOGICAL: None. PAST MEDICAL HISTORY: 1. GERD. 2. Hyperlipidemia. 3. Hypertension. 4. UTI. 5. Meckel's diverticulum. 6. Difficulty swallowing and chokes easily. PAST SURGICAL HISTORY: 1. Appendectomy. 2. Back surgery. 3. Bowel resection. 4. Hysterectomy. 5. Tonsillectomy. 6. Two colon resections. 7. Two small bowel resections. 8. Bilateral cataracts removed. 9. Left hip surgery. 10.Left hemiarthroplasty. 11.Left shoulder replacement. 12.Right hip replacement. 13.Neck fusion. 14.Partial knee replacement. PSYCH HISTORY: Anxiety, depression. SOCIAL HISTORY: The patient lives at [facility], uses a 4-wheel walker. No smoking. No alcohol. FAMILY HISTORY: Stroke, COPD. HOME MEDICATIONS: 1. Wellbutrin XL 150 mg a day. 2. Ultram 50 mg q.6 p.r.n. 3. Seroquel 50 mg at bedtime. 4. Mysoline 25 p.o. b.i.d. 5. Pravachol 20 mg at bedtime. 6. Prilosec 20 mg daily. 7. Corgard 40 mg b.i.d. 8. Mirtazapine 40 mg at bedtime. 9. Zestril 10 mg p.o. daily. 10.Lactulose 20 grams p.o. daily. 11.Ativan 1 mg p.o. t.i.d. p.r.n. 12.Lasix 20 mg p.r.n. 13.Cymbalta 60 mg p.o. daily. 14.Norvasc 10 mg p.o. daily. 15.Abilify 5 mg p.o. daily. ALLERGIES: NONE. PHYSICAL EXAMINATION: Temperature 98.6, pulse 52, respiration 18, blood pressure 157/72, pulse ox 94% on room air. GENERAL APPEARANCE: Average build. Lying in bed, tired-appearing. EYES: Pupils equal. Conjunctivae normal. HEENT: External appearance of nose and ears normal. Oral cavity normal. Decreased hearing. NECK: JVD not raised. Mass not palpable. RESPIRATORY: Effort normal. Lungs are clear. CARDIOVASCULAR: First and second sounds normal. No edema. ABDOMEN: Soft, nontender. Liver and spleen not palpable. LYMPHATIC: No lymph node palpable in neck or axillae. PSYCHIATRY: Alert and oriented x3. Mood and affect normal. NERVOUS SYSTEM: Pupils equal. Cranial nerves grossly intact. Power and sensation grossly intact. GENITOURINARY: No rectal exam was done. MUSCULOSKELETAL: Evidence of osteoarthritis, especially in the hands. INVESTIGATIONS: White count 10.9, hemoglobin 13.8, potassium 4.3, BUN 21, creatinine 0.80. UA negative. CT scan of the abdomen and pelvis shows a left upper kidney 3.5 x 3 x 3 cm solid mass suggestive of renal cell carcinoma. ASSESSMENT: 1. Left renal mass, 3.5 x 3 x 3 cm, strongly suspicious for renal cell carcinoma. 2. Chronic gait dysfunction. Patient uses a 4-wheel walker. 3. Painful large hemorrhoids, having failed prior banding treatment, symptomatic. 4. Dysphagia, chronic. Will need further workup. 5. Depression not otherwise specified. 6. 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 7. Gastroesophageal reflux disease. 8. Essential hypertension. 9. Hyperlipidemia. PLAN: Urology was consulted. Also will consult General Surgery. The patient is known to Dr. Hawk. Home medications are resumed. Care was discussed at length with the patient and daughter. Questions were answered. MARKIE / TRAVIS: [id number] /
[2018-04-23] MEDS: ENOXAPARIN 40 MG/0.4 ML SYRINGE SQ SCH (17:49)
[2018-04-23] MEDS: MIRTAZAPINE 45 MG TABLET PO SCH (20:08)
[2018-04-23] MEDS: PRAVASTATIN SODIUM 20 MG TAB PO SCH (20:08)
[2018-04-23] MEDS: QUEtiapine 50 MG TAB PO SCH (20:08)
[2018-04-24] MEDS: SODIUM CHLORIDE 0.9% 1,000 ML IV SCH ×2 (01:51→12:16)
[2018-04-24] MEDS: ACETAMINOPHEN TAB 325 MG TAB PO PRN (03:33)
[2018-04-24 05:56] VITALS: BP 172/77; PULSE 53; TEMP 97.9
[2018-04-24] MEDS ORDERED: MAGNESIUM CITRATE 296 ML BOTTLE PO ONE (07:58)
[2018-04-24] MEDS: PRIMIDONE 25 MG TAB PO SCH (08:02)
[2018-04-24] MEDS: LACTULOSE 200 GM/300 ML (FROM 1/2 GAL JUG) PO SCH (08:03)
[2018-04-24] MEDS: ARIPiprazole 5 MG TAB PO SCH (08:03)
[2018-04-24] MEDS: ENOXAPARIN 40 MG/0.4 ML SYRINGE SQ SCH (08:03)
[2018-04-24] MEDS: NADOLOL 20 MG TAB PO SCH (08:03)
[2018-04-24] MEDS: buPROPion XL 150 MG TAB.ER.24H PO SCH (08:03)
[2018-04-24] MEDS: amLODIPine 10 MG TAB PO SCH (08:03)
[2018-04-24] MEDS: DULoxetine HCL 60 MG CAPSULE.DR PO SCH (08:03)
[2018-04-24] MEDS: LISINOPRIL 10 MG TAB PO SCH (08:03)
[2018-04-24] MEDS: PANTOPRAZOLE 40 MG TABLET PO SCH (08:04)
--- NOTE | 2018-04-24 08:06 | P.GSCN ---
History of Present Illness Consult date: 04/24/18 Reason for Consult: Thank you very much for asking us to see Mrs. Powell. She is a [facility] resident the. Has a history of dementia. Somewhat confused. Dominant pain. Rectal bleeding was consulted. Was found to have a renal mass remained with CT was unremarkable except for some diverticulosis without complication. Not able to obtain much history from the patient the. No family available at this time. Not sure if she's had regular bowel movements at the [facility] with his any history of bleeding. She did have ligation treatments of hemorrhoids in the remote past. Past history well-documented. Has had several colon resections and bowel resections for obstruction. Chronic constipation. On examination the patient is more frail elderly 88-year-old white female in no acute distress at this time. No fever. Vitals stable. Abdomen is fairly soft has midline scars. No rebound or rigidity. Rectal exam revealed no large hemorrhoids a. Has a small external hemorrhoid. Mostly a skin tag. This is nontender. Digital exam however reveals a fecal impaction with a large amount of formed firm stool in the rectum palpable. No thrombosed hemorrhoids no fissure or any other pathology. Minimal internal hemorrhoids. Impression. Fecal impaction which probably explains rectal pain. It may also explain her abdominal symptoms. Minimal hemorrhoids. Recommendation. I have taken the liberty of ordering some laxatives. Stool softener daily. Anusol HC suppositories, may need manual disimpaction by nursing staff. Doubt enemas would help since she probably doesn't have the ability to hold the enema. Thank you very much for asking me to see Mrs. Powell. We will follow her on an as-needed basis. Past Medical History Past Medical History: GERD/Reflux, Hyperlipidemia, Hypertension Additional Past Medical History / Comment(s): UTI's, meckels diverticulum, past fallsl /broke lt hip had sx , past lt hand fx- no sx .past migraines. pt stated "has diffiuclty swallowing food-coughs and chokes easily" History of Any Multi-Drug Resistant Organisms: None Reported Past Surgical History: Appendectomy, Back Surgery, Bowel Resection, Hysterectomy , Orthopedic Surgery, Tonsillectomy Additional Past Surgical History / Comment(s): 2 colon resections, 2 small bowel resections, cataracts,bilateral cataract removal, colonoscopies, egd. lt hip sx d/t broken hip but pt not sure what was done but per 2012 hx had lt hemiarthroplasty,also listed were lt shoulder replacement,hx rt hip replacment , neck fusion, partial knee replacement. Past Anesthesia/Blood Transfusion Reactions: Postoperative Nausea & Vomiting ( PONV) Additional Past Anesthesia/Blood Transfusion Reaction / Comm: Pt states years ago she had PONV but not with later surgeries. Pt's des states that the last couple of surgeries pt has had severe hallucinations post op for several days. Smoking Status: Never smoker - Past Family History Father Family Medical History: COPD, CVA/TIA Additional Family Medical History / Comment(s): Father was a smoker. Mother Family Medical History: Unable to Obtain Additional Family Medical History / Comment(s): Pt was raised by stepmother and does not know maternal mother's hx. Medications and Allergies Home Medications Medication Instructions Recorded Confirmed Type ARIPiprazole [Abilify] 5 mg PO DAILY 11/30/14 04/22/18 History DULoxetine HCL [Cymbalta] 60 mg PO DAILY 11/30/14 04/22/18 History Nadolol [Corgard] 40 mg PO BID 11/30/14 04/22/18 History Omeprazole [PriLOSEC] 20 mg PO DAILY 11/30/14 04/22/18 History QUEtiapine [SEROquel] 50 mg PO HS 11/30/14 04/22/18 History amLODIPine [Norvasc] 10 mg PO DAILY #30 tab 12/03/14 04/22/18 Rx Furosemide [Lasix] 20 mg PO DAILY PRN MDD 3 X PER WEEK 08/22/16 04/22/18 History Lisinopril [Zestril] 10 mg PO DAILY 08/22/16 04/22/18 History Mirtazapine 45 mg PO HS 11/17/16 04/22/18 History LORazepam [Ativan] 1 mg PO TID PRN 11/02/17 04/22/18 History Lactulose 20 gm PO DAILY 11/02/17 04/22/18 History traMADol HCL [Ultram] 50 mg PO Q6HR PRN 11/02/17 04/22/18 History Pravastatin Sodium [Pravachol] 20 mg PO HS 04/22/18 04/22/18 History Primidone [Mysoline] 25 mg PO BID 04/22/18 04/22/18 History buPROPion HCL [Wellbutrin XL] 150 mg PO DAILY 04/22/18 04/22/18 History Allergies Allergy/AdvReac Type Severity Reaction Status Date / Time No Known Allergies Allergy Verified 04/22/18 16:25 Surgical - Exam Vital Signs Temp Pulse Resp BP Pulse Ox 97.9 F 59 L 18 132/63 92 L 04/22/18 15:27 04/22/18 15:27 04/22/18 15:27 04/22/18 15:27 04/22/18 15:27 Results - Labs 04/22/18 16:22 04/22/18 16:22
[2018-04-24] MEDS: LORazepam 1 MG TAB PO PRN (08:08)
[2018-04-24] MEDS ORDERED: DOCUSATE 100 MG CAP PO SCH (09:00)
[2018-04-24] MEDS ORDERED: HYDROCORTISONE SUPPOSITORY 25 MG SUPP RECTAL SCH (09:00)
--- NOTE | 2018-04-24 22:42 | DS ---
DISCHARGE SUMMARY DATE OF ADMISSION: 04/22/2018 DATE OF DISCHARGE: 04/24/2018 FINAL DIAGNOSES: 1. 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 2. Chronic gait dysfunction, patient uses a 4 wheel walker. 3. Hemorrhoids, symptomatic. 4. Depression, not otherwise specified. 5. Primary osteoarthritis multiple joints, bilateral. 6. Gastroesophageal reflux disease. 7. Essential hypertension. 8. Hyperlipidemia. 9. Some dysphagia. Will need further outpatient workup if becomes troublesome. HOSPITAL COURSE: This patient presented with pain in the rectal area, found to have hemorrhoids. Anusol- HC is to be used as per Dr. Hawk. Also found to have a left renal mass 3.5 x 3[address] Davis. The patient talked to Dr. Davis and the daughter. At this point, no further workup to be done to be done. The patient is able to tolerate food, sometimes has trouble swallowing. EXAM: Lungs are clear. Cardiovascular: 1st and 2nd sounds normal. CONSULTATIONS: Dr. Hawk from General surgery, Dr. Davis from urology. DISCHARGE MEDICATIONS: 1. Abilify 5 mg a day. 2. Cymbalta 60 mg a day. 3. Corgard 40 mg b.i.d. 4. Prilosec 20 mg a day. 5. Seroquel 50 mg q.h.s. 6. Norvasc 10 mg a day. 7. Lasix 20 mg a day. 8. Zestril 10 mg a day. 9. Mirtazapine 45 mg q.h.s. 10.Ativan 1 mg p.o. t.i.d. p.r.n. 11.Lactulose 20 g p.o. daily. 12.Ultram 50 mg every 6 hours p.r.n. 13.Pravachol 20 mg q.h.s. 14.Mysoline 25 mg p.o. b.i.d. 15.Wellbutrin XL 150 mg a day. 16.Anusol HC 325 mg rectal b.i.d. 17.Metamucil 6 grams p.o. daily. FOLLOWUP: Follow up with Dr. Mata on May 01, 2018, follow up with Dr. Hawk on May 09, 2018, follow up with Dr. Ryan malone High-fiber diet. Copy to Dr. Mata. MMODL / IJN: [id number] /
== END 2018-04-24 16:25 | disposition home or self-care (01) ==
LOC: EC 15:13 → 5ONC 19:22
PROVIDERS: ADMIT Hospitalist; ATTEND Hospitalist
DX: K64.4 Residual hemorrhoidal skin tags (principal); K56.41 Fecal impaction; N28.89 Other specified disorders of kidney and ureter; K64.8 Other hemorrhoids; I10 Essential (primary) hypertension; E78.5 Hyperlipidemia, unspecified; K21.9 Gastro-esophageal reflux disease without esophagitis; F41.9 Anxiety disorder, unspecified; R13.10 Dysphagia, unspecified; F03.90 Unspecified dementia, unspecified severity, without behavioral disturbance, psychotic disturbance, mood disturbance, and anxiety; R53.83 Other fatigue; G89.29 Other chronic pain; G43.909 Migraine, unspecified, not intractable, without status migrainosus; H91.90 Unspecified hearing loss, unspecified ear; R32 Unspecified urinary incontinence; R26.9 Unspecified abnormalities of gait and mobility; M15.9 Polyosteoarthritis, unspecified; F32.9 Major depressive disorder, single episode, unspecified; Z79.899 Other long term (current) drug therapy; Z87.440 Personal history of urinary (tract) infections; Z90.710 Acquired absence of both cervix and uterus; Z90.89 Acquired absence of other organs; Z98.1 Arthrodesis status; Z96.659 Presence of unspecified artificial knee joint; Z96.612 Presence of left artificial shoulder joint; Z96.641 Presence of right artificial hip joint; Z98.42 Cataract extraction status, left eye; Z98.41 Cataract extraction status, right eye; Q43.0 Meckel's diverticulum (displaced) (hypertrophic); Z82.5 Family history of asthma and other chronic lower respiratory diseases; Z81.2 Family history of tobacco abuse and dependence; Z82.3 Family history of stroke
CPT/HCPCS: 96361 ×3; 96360 ×2; 99285 ×2; 96372 ×2; 36415; 97162; 97166; 80053; 82150; 83605; 83690; 85025; 81003; 74177; G0378 ×3; J1650 ×2; Q9967

== ENCOUNTER 2018-05-28 19:49 | Emergency (ER) | payer MEDICARE ==
[2018-05-28] MEDS ORDERED: SODIUM CHLORIDE 0.9% 1,000 ML IV STA (19:55)
[2018-05-28 20:49] LABS: Appearance,Urine Clear (Clear); Bilirubin,Urine Negative (Negative); Blood,Urine Negative (Negative); Color,Urine Light Yellow; Glucose,Urine (UA) Negative (Negative); Ketones,Urine Negative (Negative); Leukocyte Esterase,Urine Negative (Negative); Nitrite,Urine Negative (Negative); Protein,Urine Negative (Negative); Specific Gravity,Urine 1.007 (1.001-1.035); Urobilinogen,Urine <2.0 mg/dL (<2.0)
--- NOTE | 2018-05-28 20:54 | ED ---
General Adult HPI - General Chief complaint: Weakness Stated complaint: Weakness Time Seen by Provider: 05/28/18 19:54 Source: patient, RN notes reviewed, old records reviewed Mode of arrival: EMS Limitations: no limitations - History of Present Illness Initial comments: This is a 80-year-old female the ER for evaluation of fall. Fall weakness and inability to ambulate. Patient medical history consistent for high blood pressure high cholesterol multiple surgeries. She does live alone. Patient had a mechanical trip and fall earlier today complaining of back pain. No loss of bowel or bladder, and is complaining of pain in her middle to lower back. No other injury noted patient did not hit head - Related Data Home Medications Medication Instructions Recorded Confirmed ARIPiprazole [Abilify] 5 mg PO DAILY 11/30/14 05/28/18 DULoxetine HCL [Cymbalta] 60 mg PO DAILY 11/30/14 05/28/18 Nadolol [Corgard] 40 mg PO BID 11/30/14 05/28/18 QUEtiapine [SEROquel] 25 - 50 mg PO HS 11/30/14 05/28/18 Lisinopril [Zestril] 10 mg PO DAILY 08/22/16 05/28/18 LORazepam [Ativan] 1 mg PO TID PRN 11/02/17 05/28/18 traMADol HCL [Ultram] 50 mg PO Q6HR PRN 11/02/17 05/28/18 Pravastatin Sodium [Pravachol] 20 mg PO HS 04/22/18 05/28/18 Primidone [Mysoline] 25 mg PO BID 04/22/18 05/28/18 buPROPion HCL [Wellbutrin XL] 150 mg PO DAILY 04/22/18 05/28/18 Previous Rx's Medication Instructions Recorded amLODIPine [Norvasc] 10 mg PO DAILY #30 tab 12/03/14 Allergies Allergy/AdvReac Type Severity Reaction Status Date / Time No Known Allergies Allergy Verified 05/28/18 20:53 Review of Systems ROS Statement: Those systems with pertinent positive or pertinent negative responses have been documented in the HPI. ROS Other: All systems not noted in ROS Statement are negative. Past Medical History Past Medical History: GERD/Reflux, Hyperlipidemia, Hypertension Additional Past Medical History / Comment(s): UTI's, meckels diverticulum, past fallsl /broke lt hip had sx , past lt hand fx- no sx .past migraines. pt stated "has diffiuclty swallowing food-coughs and chokes easily" History of Any Multi-Drug Resistant Organisms: None Reported Past Surgical History: Appendectomy, Back Surgery, Bowel Resection, Hysterectomy , Orthopedic Surgery, Tonsillectomy Additional Past Surgical History / Comment(s): 2 colon resections, 2 small bowel resections, cataracts,bilateral cataract removal, colonoscopies, egd. lt hip sx d/t broken hip but pt not sure what was done but per 2012 hx had lt hemiarthroplasty,also listed were lt shoulder replacement,hx rt hip replacment , neck fusion, partial knee replacement. Past Anesthesia/Blood Transfusion Reactions: Postoperative Nausea & Vomiting ( PONV) Additional Past Anesthesia/Blood Transfusion Reaction / Comment(s): Pt states years ago she had PONV but not with later surgeries. Pt's des states that the last couple of surgeries pt has had severe hallucinations post op for several days. Past Psychological History: Anxiety, Depression Smoking Status: Never smoker - Past Family History Father Family Medical History: COPD, CVA/TIA Additional Family Medical History / Comment(s): Father was a smoker. Mother Family Medical History: Unable to Obtain Additional Family Medical History / Comment(s): Pt was raised by stepmother and does not know maternal mother's hx. General Exam Limitations: no limitations General appearance: alert, in no apparent distress Head exam: Present: atraumatic, normocephalic, normal inspection Eye exam: Present: normal appearance, PERRL, EOMI. Absent: scleral icterus, conjunctival injection, periorbital swelling ENT exam: Present: normal exam, mucous membranes moist Neck exam: Present: normal inspection. Absent: tenderness, meningismus, lymphadenopathy Respiratory exam: Present: normal lung sounds bilaterally. Absent: respiratory distress, wheezes, rales, rhonchi, stridor Cardiovascular Exam: Present: regular rate, normal rhythm, normal heart sounds. Absent: systolic murmur, diastolic murmur, rubs, gallop, clicks GI/Abdominal exam: Present: soft, normal bowel sounds. Absent: distended, tenderness, guarding, rebound, rigid Extremities exam: Present: normal inspection, full ROM, normal capillary refill. Absent: tenderness, pedal edema, joint swelling, calf tenderness Back exam: Present: normal inspection Neurological exam: Present: alert, oriented X3, CN II-XII intact Psychiatric exam: Present: normal affect, normal mood Skin exam: Present: warm, dry, intact, normal color. Absent: rash Course Vital Signs 05/28/18 05/28/18 19:51 21:28 Temperature 97.2 F L Pulse Rate 62 58 L Respiratory 16 18 Rate Blood Pressure 179/78 172/74 O2 Sat by Pulse 95 94 L Oximetry - Reevaluation(s) Reevaluation #1: 05/28/18 23:36 Spoke with family at length regarding findings, will take patient home, okay to take care of patient and they did see the patient every day EKG Findings - EKG Comments: EKG Findings:: EKG shows sinus rhythm rate of 62, TN 162, QRS 90, QTc 448 Medical Decision Making - Medical Decision Making 80 female the ER for evaluation of weakness multiple falls no injury found. Urine is normal lab tests are normal. Patient can be discharged home - Lab Data Result diagrams: 05/28/18 20:40 05/28/18 20:40 Lab Results 05/28/18 05/28/18 05/28/18 Range/Units 20:35 20:40 20:40 WBC 10.7 H (3.8-10.6) k/uL RBC 4.40 (3.80-5.40) m/uL Hgb 13.1 (11.4-16.0) gm/dL Hct 41.8 (34.0-46.0) % MCV 94.8 (80.0-100.0) fL MCH 29.7 (25.0-35.0) pg MCHC 31.3 (31.0-37.0) g/dL RDW 12.5 (11.5-15.5) % Plt Count 153 (150-450) k/uL Neutrophils % 61 % Lymphocytes % 24 % Monocytes % 5 % Eosinophils % 8 % Basophils % 1 % Neutrophils # 6.5 (1.3-7.7) k/uL Lymphocytes # 2.6 (1.0-4.8) k/uL Monocytes # 0.5 (0-1.0) k/uL Eosinophils # 0.9 H (0-0.7) k/uL Basophils # 0.1 (0-0.2) k/uL PT 9.9 (9.0-12.0) sec INR 1.0 (<1.2) APTT 21.3 L (22.0-30.0) sec Sodium (137-145) mmol/L Potassium (3.5-5.1) mmol/L Chloride (98-107) mmol/L Carbon Dioxide (22-30) mmol/L Anion Gap mmol/L BUN (7-17) mg/dL Creatinine (0.52-1.04) mg/dL Est GFR (CKD-EPI)AfAm (>60 ml/min/1.73 sqM) Est GFR (CKD-EPI)NonAf (>60 ml/min/1.73 sqM) Glucose (74-99) mg/dL Plasma Lactic Acid Kody (0.7-2.0) mmol/L Calcium (8.4-10.2) mg/dL Phosphorus (2.5-4.5) mg/dL Magnesium (1.6-2.3) mg/dL Total Bilirubin (0.2-1.3) mg/dL AST (14-36) U/L ALT (9-52) U/L Alkaline Phosphatase (38-126) U/L Total Creatine Kinase (30-135) U/L CK-MB (CK-2) (0.0-2.4) ng/mL CK-MB (CK-2) Rel Index Troponin I (0.000-0.034) ng/mL Total Protein (6.3-8.2) g/dL Albumin (3.5-5.0) g/dL TSH (0.465-4.680) mIU/L Urine Color Light Yellow Urine Appearance Clear (Clear) Urine pH 7.0 (5.0-8.0) Ur Specific [place] 1.007 (1.001-1.035) Urine Protein Negative (Negative) Urine Glucose (UA) Negative (Negative) Urine Ketones Negative (Negative) Urine Blood Negative (Negative) Urine Nitrite Negative (Negative) Urine Bilirubin Negative (Negative) Urine Urobilinogen <2.0 (<2.0) mg/dL Ur Leukocyte Esterase Negative (Negative) 05/28/18 05/28/18 05/28/18 Range/Units 20:40 20:40 20:40 WBC (3.8-10.6) k/uL RBC (3.80-5.40) m/uL Hgb (11.4-16.0) gm/dL Hct (34.0-46.0) % MCV (80.0-100.0) fL MCH (25.0-35.0) pg MCHC (31.0-37.0) g/dL RDW (11.5-15.5) % Plt Count (150-450) k/uL Neutrophils % % Lymphocytes % % Monocytes % % Eosinophils % % Basophils % % Neutrophils # (1.3-7.7) k/uL Lymphocytes # (1.0-4.8) k/uL Monocytes # (0-1.0) k/uL Eosinophils # (0-0.7) k/uL Basophils # (0-0.2) k/uL PT (9.0-12.0) sec INR (<1.2) APTT (22.0-30.0) sec Sodium 139 (137-145) mmol/L Potassium 3.5 (3.5-5.1) mmol/L Chloride 106 (98-107) mmol/L Carbon Dioxide 26 (22-30) mmol/L Anion Gap 7 mmol/L BUN 14 (7-17) mg/dL Creatinine 0.80 (0.52-1.04) mg/dL Est GFR (CKD-EPI)AfAm 76 (>60 ml/min/1.73 sqM) Est GFR (CKD-EPI)NonAf 66 (>60 ml/min/1.73 sqM) Glucose 91 (74-99) mg/dL Plasma Lactic Acid Kody 0.7 (0.7-2.0) mmol/L Calcium 9.7 (8.4-10.2) mg/dL Phosphorus 3.1 (2.5-4.5) mg/dL Magnesium 2.0 (1.6-2.3) mg/dL Total Bilirubin 0.4 (0.2-1.3) mg/dL AST 22 (14-36) U/L ALT 32 (9-52) U/L Alkaline Phosphatase 69 (38-126) U/L Total Creatine Kinase 45 (30-135) U/L CK-MB (CK-2) 0.6 (0.0-2.4) ng/mL CK-MB (CK-2) Rel Index 1.3 Troponin I <0.012 (0.000-0.034) ng/mL Total Protein 6.0 L (6.3-8.2) g/dL Albumin 3.6 (3.5-5.0) g/dL TSH 4.490 (0.465-4.680) mIU/L Urine Color Urine Appearance (Clear) Urine pH (5.0-8.0) Ur Specific [place] (1.001-1.035) Urine Protein (Negative) Urine Glucose (UA) (Negative) Urine Ketones (Negative) Urine Blood (Negative) Urine Nitrite (Negative) Urine Bilirubin (Negative) Urine Urobilinogen (<2.0) mg/dL Ur Leukocyte Esterase (Negative) - Radiology Data Radiology results: report reviewed (CT brain C-spine chest x-ray pelvis x-ray negative for traumatic injury x-ray lumbosacral spine negative), image reviewed Disposition Clinical Impression: Dehydration, Generalized weakness, Fall Disposition: HOME SELF-CARE Condition: Good Instructions: Weakness (ED), Fall Prevention for Older Adults (ED) Is patient prescribed a controlled substance at d/c from ED?: No Referrals: Edi Mata DO [Primary Care Provider] - 1-2 days
[2018-05-28 21:01] LABS: Basophils # (A) 0.1 k/uL (0-0.2); Basophils % (A) 1 %; Eosinophils # (A) 0.9 k/uL (0-0.7); Eosinophils % (A) 8 %; HCT 41.8 % (34.0-46.0); HGB 13.1 gm/dL (11.4-16.0); Lymphocytes # (A) 2.6 k/uL (1.0-4.8); Lymphocytes % (A) 24 %; MCH 29.7 pg (25.0-35.0); MCHC 31.3 g/dL (31.0-37.0); MCV 94.8 fL (80.0-100.0); Mean Platelet Volume 7.9; Monocytes # (A) 0.5 k/uL (0-1.0); Monocytes % (A) 5 %; Neutrophils # (A) 6.5 k/uL (1.3-7.7); Neutrophils % (A) 61 %; Platelet Count 153 k/uL (150-450); RDW 12.5 % (11.5-15.5); WBC 10.7 k/uL (3.8-10.6)
[2018-05-28 21:05] LABS: Albumin 3.6 g/dL (3.5-5.0); Calcium 9.7 mg/dL (8.4-10.2); Phosphorus 3.1 mg/dL (2.5-4.5); Potassium 3.5 mmol/L (3.5-5.1); Total Bilirubin 0.4 mg/dL (0.2-1.3)
[2018-05-28 21:12] LABS: Creatine Kinase 45 U/L (30-135)
[2018-05-28 21:25] LABS: Creatine Kinase MB 0.6 ng/mL (0.0-2.4); Troponin I <0.012 ng/mL (0.000-0.034)
[2018-05-28 21:28] VITALS: PULSE 58; RESP 18
--- NOTE | 2018-05-28 21:41 | XR ---
EXAMINATION: XR chest 2V DATE AND TIME: 05/28/2018 9:16 PM CLINICAL INDICATION: Weakness TECHNIQUE: PA and lateral COMPARISON: 08/22/2016 FINDINGS: Markedly elevated right hemidiaphragm, above the right mid hilar level, is redemonstrated. There is a small band of horizontal added opacity immediately above the right hemidiaphragm, consist ent with subsegmental atelectasis. The lungs are otherwise clear as can be seen. The pleural spaces are negative. The cardiac silhouette is moderately enlarged, similar. The skeletal structures and soft tissues are negative for acute findings. IMPRESSION: NO ACUTE RADIOGRAPHIC PROCESS.
--- NOTE | 2018-05-28 21:50 | XR ---
PROCEDURE: XR pelvis AP view - 1V DATE AND TIME: 05/28/2018 9:40 PM CLINICAL INDICATION: Pain TECHNIQUE: Department protocol. COMPARISON: 08/22/2016 FINDINGS: Bilateral hip hardware is intact. There is no fracture or malalignme nt. The soft tissues are unremarkable. IMPRESSION: NO ACUTE PROCESS.
[2018-05-28 21:51] LABS: Prothrombin Time 9.9 sec (9.0-12.0)
--- NOTE | 2018-05-28 21:54 | XR ---
PROCEDURE: XR lumbar spine 3V DATE AND TIME: 05/28/2018 9:40 PM CLINICAL INDICATION: Pain TECHNIQUE: Department protocol. COMPARISON: Radiographs dated 01/14/2010. FINDINGS: There is mild wedging of the superior endplate of the L1 vertebral body, new since the prio r study. Age is indeterminate radiographically. If needed, acute/subacute vs. remote timing can be de lineated noncontrast MRI if clinically indicated. There is no malalignment. No other focal skeletal findings. Multilevel advanced facet arthritis changes are noted throughout the mid and lower lumbar spine. The soft tissues are unremarkable. IMPRESSION: NO DEFINITE ACUTE PROCESS, ALTHOUGH L1 VERTEBRAL BODY FINDINGS DISCUSSED.
[2018-05-28 22:04] LABS: Partial Thromboplastin Time 21.3 sec (22.0-30.0)
--- NOTE | 2018-05-28 22:16 | CT ---
EXAMINATION TYPE: CT brain linda stevenson DATE OF EXAM: 05/28/2018 COMPARISON: November 02, 2017 HISTORY: fall headache. Neck pain. CT DLP: 1549 mGycm Automated exposure control for dose reduction was used. TECHNIQUE: CT scan of the head and cervical spine are performed without contrast. FINDINGS: There is diffuse cerebral cortical atrophy. There is enlargement of the sylvian fissures. There is no mass effect nor midline shift. There is no sign of intracranial hemorrhage. There is pat isaias hypodensity in the periventricular white matter. The calvarium is intact. There is straightening of the cervical spine. There is apparent old anterior fusion from C4 to C6. Fa cet joints are intact. There is mild facet arthropathy. The skull base is intact. There is no evidenc e of cervical spine fracture. IMPRESSION: Cerebral atrophy. Chronic small vessel ischemia. No change. Spondylotic changes and previous surgery in the cervical spine. No fracture seen. No change.
[2018-05-29 00:02] VITALS: BP 179/80; TEMP 98.2
== END 2018-05-29 00:02 | disposition home or self-care (01) ==
LOC: EC 19:49
DX: E86.0 Dehydration (principal); R53.1 Weakness; I10 Essential (primary) hypertension; E78.5 Hyperlipidemia, unspecified; F41.9 Anxiety disorder, unspecified; F32.9 Major depressive disorder, single episode, unspecified; Z79.899 Other long term (current) drug therapy; Z96.612 Presence of left artificial shoulder joint; Z96.659 Presence of unspecified artificial knee joint; Z96.641 Presence of right artificial hip joint; Z98.1 Arthrodesis status; W01.0XXA Fall on same level from slipping, tripping and stumbling without subsequent striking against object, initial encounter; Y92.009 Unspecified place in unspecified non-institutional (private) residence as the place of occurrence of the external cause
CPT/HCPCS: 36415; 70450; 71046; 72100; 72125; 72170; 80053; 81003; 82550; 82553; 83605; 83735; 84100; 84443; 84484; 85025; 85610; 85730; 87086; 93005; 96360; 96361; 99285

== ENCOUNTER 2018-09-11 08:22 | Emergency (ER) | payer MEDICARE ==
[2018-09-11] MEDS ORDERED: SODIUM CHLORIDE 0.9% 1,000 ML IV STA (08:29)
--- NOTE | 2018-09-11 09:02 | ED ---
Weakness HPI - General Chief complaint: Weakness Stated complaint: weakness Time Seen by Provider: 09/11/18 08:29 Source: patient, RN notes reviewed, old records reviewed Mode of arrival: wheelchair Limitations: no limitations - History of Present Illness Initial comments: This is an 80-year-old female presenting for evaluation of weakness. Patient's poor strain secondary to clinical condition as well as medical condition. Patient presents from assisted living facility but for the most part does take care of herself in her activities of daily living. Patient presents with her daughter for evaluation weakness, daughter states symptoms of similar prior urinary tract infection. No known fevers. Patient states she does not feel well she feels weak but denies any pain MD Complaint: generalized weakness -: days(s) Location: generalized Severity: mild Severity scale (1-10): 3 Quality: aching Consistency: constant Improves with: none Worsens with: none Context: recent illness Associated Symptoms: denies other symptoms - Related Data Home Medications Medication Instructions Recorded Confirmed ARIPiprazole [Abilify] 5 mg PO DAILY 11/30/14 09/11/18 DULoxetine HCL [Cymbalta] 60 mg PO DAILY 11/30/14 09/11/18 Nadolol [Corgard] 40 mg PO BID 11/30/14 09/11/18 Pravastatin Sodium [Pravachol] 20 mg PO HS 04/22/18 09/11/18 Primidone [Mysoline] 50 mg PO DAILY 04/22/18 09/11/18 Acetaminophen [Tylenol] 500 mg PO Q4-6H PRN 05/30/18 09/11/18 Cholecalciferol [Vitamin D3] 2,000 unit PO DAILY 05/30/18 09/11/18 Cranberry Fruit Extract [Cranberry] 400 mg PO DAILY 05/30/18 09/11/18 Omeprazole 20 mg PO Q48H 09/11/18 09/11/18 Primidone [Mysoline] 25 mg PO HS 09/11/18 09/11/18 Sennosides-Docusate Sodium 1 tab PO BID 09/11/18 09/11/18 [Senokot-S] Previous Rx's Medication Instructions Recorded amLODIPine [Norvasc] 10 mg PO DAILY #30 tab 12/03/14 LORazepam [Ativan] 1 mg PO TID PRN #6 tab 06/03/18 Lisinopril-Hctz 10-12.5 mg 1 tab PO BID #1 tab 06/03/18 [Zestoretic 10-12.5] QUEtiapine FUMARATE [SEROquel] 25 mg PO HS #1 tablet 06/03/18 traMADol HCL [Ultram] 50 mg PO Q6HR PRN #10 tablet 06/03/18 Allergies Allergy/AdvReac Type Severity Reaction Status Date / Time No Known Allergies Allergy Verified 09/11/18 10:01 Review of Systems ROS Statement: Those systems with pertinent positive or pertinent negative responses have been documented in the HPI. ROS Other: All systems not noted in ROS Statement are negative. Past Medical History Past Medical History: GERD/Reflux, Hyperlipidemia, Hypertension Additional Past Medical History / Comment(s): UTI's, meckels diverticulum, past fallsl /broke lt hip had sx , past lt hand fx- no sx .past migraines. pt stated "has diffiuclty swallowing food-coughs and chokes easily" History of Any Multi-Drug Resistant Organisms: None Reported Past Surgical History: Appendectomy, Back Surgery, Bowel Resection, Hysterectomy , Orthopedic Surgery, Tonsillectomy Additional Past Surgical History / Comment(s): 2 colon resections, 2 small bowel resections, cataracts,bilateral cataract removal, colonoscopies, egd. lt hip sx d/t broken hip but pt not sure what was done but per 2012 hx had lt hemiarthroplasty,also listed were lt shoulder replacement,hx rt hip replacment , neck fusion, partial knee replacement. Past Anesthesia/Blood Transfusion Reactions: Postoperative Nausea & Vomiting ( PONV) Additional Past Anesthesia/Blood Transfusion Reaction / Comment(s): Pt states years ago she had PONV but not with later surgeries. Pt's des states that the last couple of surgeries pt has had severe hallucinations post op for several days. Past Psychological History: Anxiety, Depression Smoking Status: Never smoker Past Alcohol Use History: None Reported Past Drug Use History: None Reported - Past Family History Father Family Medical History: COPD, CVA/TIA Additional Family Medical History / Comment(s): Father was a smoker. Mother Family Medical History: Unable to Obtain Additional Family Medical History / Comment(s): Pt was raised by stepmother and does not know maternal mother's hx. General Exam Limitations: no limitations General appearance: alert, in no apparent distress Head exam: Present: atraumatic, normocephalic, normal inspection Eye exam: Present: normal appearance, PERRL, EOMI. Absent: scleral icterus, conjunctival injection, periorbital swelling ENT exam: Present: normal exam, mucous membranes moist Neck exam: Present: normal inspection. Absent: tenderness, meningismus, lymphadenopathy Respiratory exam: Present: normal lung sounds bilaterally. Absent: respiratory distress, wheezes, rales, rhonchi, stridor Cardiovascular Exam: Present: regular rate, normal rhythm, normal heart sounds. Absent: systolic murmur, diastolic murmur, rubs, gallop, clicks GI/Abdominal exam: Present: soft, normal bowel sounds. Absent: distended, tenderness, guarding, rebound, rigid Extremities exam: Present: normal inspection, full ROM, normal capillary refill. Absent: tenderness, pedal edema, joint swelling, calf tenderness Back exam: Present: normal inspection Neurological exam: Present: alert, oriented X3, CN II-XII intact Psychiatric exam: Present: normal affect, normal mood Skin exam: Present: warm, dry, intact, normal color. Absent: rash Course Vital Signs 09/11/18 09/11/18 09/11/18 08:25 08:36 09:00 Temperature 98.6 F Pulse Rate 62 Respiratory 16 Rate Blood Pressure 164/76 166/72 O2 Sat by Pulse 96 100 Oximetry 09/11/18 09/11/18 09/11/18 09:30 10:00 10:30 Temperature Pulse Rate 63 64 63 Respiratory 13 22 13 Rate Blood Pressure 175/82 178/76 O2 Sat by Pulse Oximetry 09/11/18 11:00 Temperature Pulse Rate 64 Respiratory 18 Rate Blood Pressure 113/64 O2 Sat by Pulse 95 Oximetry - Reevaluation(s) Reevaluation #1: 09/11/18 09:25 Medical record is reviewed Reevaluation #2: 09/11/18 12:28 Patient does have improvement of symptoms here in the ER EKG Findings - EKG Comments: EKG Findings:: EKG shows sinus rhythm rate of 64, IN 164, QRS 94, QTc 464 Medical Decision Making - Medical Decision Making 88 female the ER for evaluation patient presents today for evaluation regarding weakness. Patient remains persistently weak in the emergency room, patient given hydration feeling mildly improved x-rays negative CT is negative urine is negative labwork is normal. Patient will be discharged home - Lab Data Result diagrams: 09/11/18 09:40 09/11/18 11:05 Lab Results 09/11/18 09/11/18 09/11/18 Range/Units 09:40 09:40 09:40 WBC 9.2 (3.8-10.6) k/uL RBC 4.77 (3.80-5.40) m/uL Hgb 14.7 (11.4-16.0) gm/dL Hct 43.9 (34.0-46.0) % MCV 92.0 (80.0-100.0) fL MCH 30.7 (25.0-35.0) pg MCHC 33.4 (31.0-37.0) g/dL RDW 12.5 (11.5-15.5) % Plt Count 208 (150-450) k/uL Neutrophils % 63 % Lymphocytes % 23 % Monocytes % 6 % Eosinophils % 5 % Basophils % 0 % Neutrophils # 5.8 (1.3-7.7) k/uL Lymphocytes # 2.1 (1.0-4.8) k/uL Monocytes # 0.6 (0-1.0) k/uL Eosinophils # 0.5 (0-0.7) k/uL Basophils # 0.0 (0-0.2) k/uL PT (9.0-12.0) sec INR (<1.2) APTT (22.0-30.0) sec Sodium (137-145) mmol/L Potassium (3.5-5.1) mmol/L Chloride (98-107) mmol/L Carbon Dioxide (22-30) mmol/L Anion Gap mmol/L BUN (7-17) mg/dL Creatinine (0.52-1.04) mg/dL Est GFR (CKD-EPI)AfAm (>60 ml/min/1.73 sqM) Est GFR (CKD-EPI)NonAf (>60 ml/min/1.73 sqM) Glucose (74-99) mg/dL Plasma Lactic Acid Kody 1.3 (0.7-2.0) mmol/L Calcium (8.4-10.2) mg/dL Phosphorus (2.5-4.5) mg/dL Magnesium (1.6-2.3) mg/dL Total Bilirubin (0.2-1.3) mg/dL AST (14-36) U/L ALT (9-52) U/L Alkaline Phosphatase (38-126) U/L Total Creatine Kinase (30-135) U/L CK-MB (CK-2) (0.0-2.4) ng/mL CK-MB (CK-2) Rel Index Troponin I (0.000-0.034) ng/mL Total Protein (6.3-8.2) g/dL Albumin (3.5-5.0) g/dL Urine Color Yellow Urine Appearance Clear (Clear) Urine pH 6.5 (5.0-8.0) Ur Specific [place] 1.010 (1.001-1.035) Urine Protein Negative (Negative) Urine Glucose (UA) Negative (Negative) Urine Ketones Negative (Negative) Urine Blood Negative (Negative) Urine Nitrite Negative (Negative) Urine Bilirubin Negative (Negative) Urine Urobilinogen <2.0 (<2.0) mg/dL Ur Leukocyte Esterase Negative (Negative) 09/11/18 09/11/18 09/11/18 Range/Units 11:05 11:05 11:05 WBC (3.8-10.6) k/uL RBC (3.80-5.40) m/uL Hgb (11.4-16.0) gm/dL Hct (34.0-46.0) % MCV (80.0-100.0) fL MCH (25.0-35.0) pg MCHC (31.0-37.0) g/dL RDW (11.5-15.5) % Plt Count (150-450) k/uL Neutrophils % % Lymphocytes % % Monocytes % % Eosinophils % % Basophils % % Neutrophils # (1.3-7.7) k/uL Lymphocytes # (1.0-4.8) k/uL Monocytes # (0-1.0) k/uL Eosinophils # (0-0.7) k/uL Basophils # (0-0.2) k/uL PT 9.9 (9.0-12.0) sec INR 0.9 (<1.2) APTT 20.7 L (22.0-30.0) sec Sodium 134 L (137-145) mmol/L Potassium 3.8 (3.5-5.1) mmol/L Chloride 97 L (98-107) mmol/L Carbon Dioxide 27 (22-30) mmol/L Anion Gap 10 mmol/L BUN 17 (7-17) mg/dL Creatinine 0.79 (0.52-1.04) mg/dL Est GFR (CKD-EPI)AfAm 78 (>60 ml/min/1.73 sqM) Est GFR (CKD-EPI)NonAf 68 (>60 ml/min/1.73 sqM) Glucose 113 H (74-99) mg/dL Plasma Lactic Acid Kody (0.7-2.0) mmol/L Calcium 10.9 H (8.4-10.2) mg/dL Phosphorus 3.8 (2.5-4.5) mg/dL Magnesium 2.0 (1.6-2.3) mg/dL Total Bilirubin 0.5 (0.2-1.3) mg/dL AST 23 (14-36) U/L ALT 21 (9-52) U/L Alkaline Phosphatase 84 (38-126) U/L Total Creatine Kinase 86 (30-135) U/L CK-MB (CK-2) 1.0 (0.0-2.4) ng/mL CK-MB (CK-2) Rel Index 1.2 Troponin I <0.012 (0.000-0.034) ng/mL Total Protein 7.1 (6.3-8.2) g/dL Albumin 4.2 (3.5-5.0) g/dL Urine Color Urine Appearance (Clear) Urine pH (5.0-8.0) Ur Specific [place] (1.001-1.035) Urine Protein (Negative) Urine Glucose (UA) (Negative) Urine Ketones (Negative) Urine Blood (Negative) Urine Nitrite (Negative) Urine Bilirubin (Negative) Urine Urobilinogen (<2.0) mg/dL Ur Leukocyte Esterase (Negative) - Radiology Data Radiology results: report reviewed (T brain chest x-ray and pelvis x-rays negative for acute disease), image reviewed Disposition Clinical Impression: Generalized weakness Disposition: HOME SELF-CARE Condition: Fair Instructions: Weakness (ED) Is patient prescribed a controlled substance at d/c from ED?: No Referrals: Edi Mata DO [Primary Care Provider] - 1-2 days
[2018-09-11 09:47] LABS: Appearance,Urine Clear (Clear); Bilirubin,Urine Negative (Negative); Blood,Urine Negative (Negative); Color,Urine Yellow; Glucose,Urine (UA) Negative (Negative); Ketones,Urine Negative (Negative); Leukocyte Esterase,Urine Negative (Negative); Nitrite,Urine Negative (Negative); PH, Urine 6.5 (5.0-8.0); Protein,Urine Negative (Negative); Urobilinogen,Urine <2.0 mg/dL (<2.0)
[2018-09-11 09:49] LABS: Basophils % (A) 0 %; Eosinophils # (A) 0.5 k/uL (0-0.7); Eosinophils % (A) 5 %; HCT 43.9 % (34.0-46.0); HGB 14.7 gm/dL (11.4-16.0); Lymphocytes # (A) 2.1 k/uL (1.0-4.8); Lymphocytes % (A) 23 %; MCH 30.7 pg (25.0-35.0); MCHC 33.4 g/dL (31.0-37.0); Mean Platelet Volume 8.2; Monocytes # (A) 0.6 k/uL (0-1.0); Monocytes % (A) 6 %; Neutrophils # (A) 5.8 k/uL (1.3-7.7); Neutrophils % (A) 63 %; Platelet Count 208 k/uL (150-450); RBC 4.77 m/uL (3.80-5.40); RDW 12.5 % (11.5-15.5); WBC 9.2 k/uL (3.8-10.6)
--- NOTE | 2018-09-11 10:03 | XR ---
EXAMINATION TYPE: XR chest 2V DATE OF EXAM: 09/11/2018 COMPARISON: Prior chest x-ray May 30, 2018 HISTORY: Weakness. TECHNIQUE: Frontal and lateral views of the chest are obtained. FINDINGS: Elevated right hemidiaphragm is redemonstrated. There is persistent right basilar linear sc arring or atelectasis. There is additional patchy left basilar linear scarring and/or atelectasis red emonstrated. There is no new suspicious focal air space opacity, pleural effusion, or pneumothorax s een. The cardiac silhouette size remains mildly enlarged with atherosclerotic thoracic aorta. The osseous structures are demineralized. Stimulator device overlies the left anterior lower neck similar to prior. IMPRESSION: Chronic changes and cardiomegaly without new suspicious acute pulmonary process.
[2018-09-11 11:29] VITALS: RESP 18
[2018-09-11 11:31] LABS: Albumin 4.2 g/dL (3.5-5.0); Calcium 10.9 mg/dL (8.4-10.2); Phosphorus 3.8 mg/dL (2.5-4.5); Potassium 3.8 mmol/L (3.5-5.1); Total Bilirubin 0.5 mg/dL (0.2-1.3); Total Protein 7.1 g/dL (6.3-8.2)
[2018-09-11 11:40] LABS: Creatine Kinase 86 U/L (30-135)
[2018-09-11 11:41] LABS: INR 0.9 (<1.2); Prothrombin Time 9.9 sec (9.0-12.0)
[2018-09-11 11:45] LABS: Partial Thromboplastin Time 20.7 sec (22.0-30.0)
[2018-09-11 11:54] LABS: Troponin I <0.012 ng/mL (0.000-0.034)
--- NOTE | 2018-09-11 11:56 | XR ---
EXAMINATION TYPE: XR pelvis AP view DATE OF EXAM: 09/11/2018 CLINICAL HISTORY: Weakness and fall injury 2 days ago with pain. TECHNIQUE: A single AP view of the pelvis is obtained. COMPARISON: Pelvic x-ray May 28, 2015. FINDINGS: There is no acute fracture/dislocation evident in the pelvis. The sacroiliac joints appea r symmetric and unremarkable. Metallic hardware from bilateral hip arthroplasty is partially imaged on the prior. Pubic symphysis is intact. Scattered pelvic phleboliths are seen. IMPRESSION: There is no acute fracture or dislocation in the pelvis. No significant change from prio r.
--- NOTE | 2018-09-11 12:04 | CT ---
EXAMINATION TYPE: CT brain wo con DATE OF EXAM: 09/11/2018 COMPARISON: 05/30/2018 HISTORY: Weakness CT DLP: 1062.4 mGycm Automated exposure control for dose reduction was used. TECHNIQUE: CT scan of the head is performed without contrast. FINDINGS: There is no acute intracranial hemorrhage or midline shift identified. There is diffuse v entricular and sulcal prominence consistent with diffuse age-related cerebral atrophy. There is low- attenuation in the periventricular white matter consistent with chronic small vessel ischemic change. Similar-appearing area of hypoattenuation is seen within the right parietal lobe on image 33 in comp arison the prior of 05/30/2018. Old lacunar injury is seen of the right external capsule, unchanged fro m the prior. The globes are intact and the visualized sinuses are clear other than mild mucosal thick ening in the ethmoid. Atherosclerosis is noted of the intracranial vasculature. Scleral calcificati ons are incidentally noted. IMPRESSION: Chronic findings as described above with no acute intracranial process.
[2018-09-11 13:42] VITALS: BP 166/70; PULSE 63; TEMP 98.5
== END 2018-09-11 13:29 | disposition home or self-care (01) ==
LOC: EC 08:22
DX: R53.1 Weakness (principal); Q43.0 Meckel's diverticulum (displaced) (hypertrophic); E78.5 Hyperlipidemia, unspecified; I10 Essential (primary) hypertension; K21.9 Gastro-esophageal reflux disease without esophagitis; F32.9 Major depressive disorder, single episode, unspecified; F41.9 Anxiety disorder, unspecified; Z79.899 Other long term (current) drug therapy; Z86.69 Personal history of other diseases of the nervous system and sense organs; Z90.49 Acquired absence of other specified parts of digestive tract; Z96.612 Presence of left artificial shoulder joint; Z96.641 Presence of right artificial hip joint; Z96.652 Presence of left artificial knee joint; Z98.1 Arthrodesis status
CPT/HCPCS: 36415; 70450; 71046; 72170; 80053; 81003; 82550; 82553; 83605; 83735; 84100; 84484; 85025; 85610; 85730; 87086; 93005; 99285

== ENCOUNTER → 2018-11-19 | Outpatient (CLI) | payer MEDICARE ==
[2018-11-19 14:53] LABS: HCT 41.9 % (34.0-46.0); HGB 13.8 gm/dL (11.4-16.0); MCH 30.7 pg (25.0-35.0); Mean Platelet Volume 7.8; Platelet Count 232 k/uL (150-450); RBC 4.51 m/uL (3.80-5.40); RDW 12.6 % (11.5-15.5); WBC 8.1 k/uL (3.8-10.6)
[2018-11-19 18:43] LABS: Vitamin D 25 Hydroxy 25.2 ng/mL (30.0-100.0)
[2018-11-19 19:47] LABS: Parathyroid Hormone Intact 65.1 pg/mL (14.0-72.0)
[2018-11-20 07:46] LABS: Albumin 4.2 g/dL (3.80-4.90); Anion Gap 11.8 mmol/L (4.00-12.00); Calcium 10.2 mg/dL (8.7-10.3); Carbon Dioxide 26.2 mmol/L (21.6-31.8); Potassium 3.6 mmol/L (3.5-5.5)
== END | disposition home or self-care (01) ==
LOC: LABWHC1 14:22
PROVIDERS: ATTEND Family Medicine
DX: L89.301 Pressure ulcer of unspecified buttock, stage 1 (principal); E83.52 Hypercalcemia; I10 Essential (primary) hypertension; E78.5 Hyperlipidemia, unspecified
CPT/HCPCS: 36415; 80048; 82040; 82306; 83970; 84450; 84460; 85027

== ENCOUNTER 2019-06-17 23:18 | Inpatient (IN) | payer MEDICARE ==
[2019-06-18 00:41] LABS: Appearance,Urine Clear (Clear); Bilirubin,Urine Negative (Negative); Blood,Urine Negative (Negative); Color,Urine Yellow; Glucose,Urine (UA) Negative (Negative); Ketones,Urine Negative (Negative); Leukocyte Esterase,Urine Negative (Negative); Nitrite,Urine Negative (Negative); Protein,Urine Trace (Negative); Specific Gravity,Urine 1.021 (1.001-1.035); Urobilinogen,Urine <2.0 mg/dL (<2.0)
[2019-06-18] MEDS ORDERED: DIPH,PERTUS(ACELL)TETVAC-LF 0.5 ML VIAL IM ONE (00:50)
[2019-06-18] MEDS ORDERED: SODIUM CHLORIDE 0.9% 1,000 ML IV ONE (00:50)
[2019-06-18 02:23] LABS: Basophils # (A) 0.1 k/uL (0-0.2); Basophils % (A) 1 %; Eosinophils # (A) 0.6 k/uL (0-0.7); Eosinophils % (A) 7 %; HCT 39.7 % (34.0-46.0); Lymphocytes # (A) 2.2 k/uL (1.0-4.8); Lymphocytes % (A) 24 %; MCH 30.1 pg (25.0-35.0); MCHC 32.7 g/dL (31.0-37.0); Mean Platelet Volume 7.3; Monocytes # (A) 0.7 k/uL (0-1.0); Monocytes % (A) 8 %; Neutrophils # (A) 5.1 k/uL (1.3-7.7); Neutrophils % (A) 57 %; Platelet Count 215 k/uL (150-450); RBC 4.31 m/uL (3.80-5.40); RDW 12.5 % (11.5-15.5); WBC 8.9 k/uL (3.8-10.6)
[2019-06-18 02:34] LABS: Albumin 3.6 g/dL (3.5-5.0); Calcium 10.3 mg/dL (8.4-10.2); Potassium 3.1 mmol/L (3.5-5.1); Total Bilirubin 0.4 mg/dL (0.2-1.3); Total Protein 6.3 g/dL (6.3-8.2)
[2019-06-18] MEDS ORDERED: Potassium Replacement Protocol 1 EACH MISC MISCELLANE PRN (03:18)
--- NOTE | 2019-06-18 03:19 | ED ---
Altered Mental Status HPI - General Chief Complaint: Altered Mental Status Stated Complaint: Altered mental status Time Seen by Provider: 06/17/19 23:21 Source: patient, EMS Mode of arrival: EMS - History of Present Illness Initial Comments: Patient is a pleasant 89-year-old female who is brought to the ED today via EMS after she used her life alert button to contact her daughter. Patient reports that she was attempting to transition from wheelchair to bed when she lost her f ooting and fell the ground. Patient was unable to get up. Is uncertain how long the patient was on the ground. She used her life alert contact her daughter. EMS was dispatched scene found patient sitting on the ground. Patient was awake and alert, somewhat confused but pleasant. Daughter expressed concern that the patient may have a urinary tract infection and she does tend to get confused when she has urinary tract infections which she gets frequently. - Related Data Home Medications Medication Instructions Recorded Confirmed ARIPiprazole [Abilify] 5 mg PO DAILY 11/30/14 09/11/18 DULoxetine HCL [Cymbalta] 60 mg PO DAILY 11/30/14 09/11/18 Nadolol [Corgard] 40 mg PO BID 11/30/14 09/11/18 Pravastatin Sodium [Pravachol] 20 mg PO HS 04/22/18 09/11/18 Primidone [Mysoline] 50 mg PO DAILY 04/22/18 09/11/18 Acetaminophen [Tylenol] 500 mg PO Q4-6H PRN 05/30/18 09/11/18 Cholecalciferol [Vitamin D3 (25 2,000 unit PO DAILY 05/30/18 09/11/18 Mcg = 1000 Iu)] Cranberry Fruit Extract [Cranberry] 400 mg PO DAILY 05/30/18 09/11/18 Omeprazole 20 mg PO Q48H 09/11/18 09/11/18 Primidone [Mysoline] 25 mg PO HS 09/11/18 09/11/18 Sennosides-Docusate Sodium 1 tab PO BID 09/11/18 09/11/18 [Senokot-S] Previous Rx's Medication Instructions Recorded amLODIPine [Norvasc] 10 mg PO DAILY #30 tab 12/03/14 LORazepam [Ativan] 1 mg PO TID PRN #6 tab 06/03/18 Lisinopril-Hctz 10-12.5 mg 1 tab PO BID #1 tab 06/03/18 [Zestoretic 10-12.5] QUEtiapine FUMARATE [SEROquel] 25 mg PO HS #1 tablet 06/03/18 traMADol HCL [Ultram] 50 mg PO Q6HR PRN #10 tablet 06/03/18 Allergies Allergy/AdvReac Type Severity Reaction Status Date / Time No Known Allergies Allergy Verified 09/11/18 10:01 Review of Systems ROS Statement: Those systems with pertinent positive or pertinent negative responses have been documented in the HPI. ROS Other: All systems not noted in ROS Statement are negative. Past Medical History Past Medical History: GERD/Reflux, Hyperlipidemia, Hypertension Additional Past Medical History / Comment(s): UTI's, meckels diverticulum, past fallsl /broke lt hip had sx , past lt hand fx- no sx .past migraines. pt stated "has diffiuclty swallowing food-coughs and chokes easily" History of Any Multi-Drug Resistant Organisms: None Reported Past Surgical History: Appendectomy, Back Surgery, Bowel Resection, Hysterectomy, Orthopedic Surgery, Tonsillectomy Additional Past Surgical History / Comment(s): 2 colon resections, 2 small bowel resections, cataracts,bilateral cataract removal, colonoscopies, egd. lt hip sx d/t broken hip but pt not sure what was done but per 2012 hx had lt hemiarthroplasty,also listed were lt shoulder replacement,hx rt hip replacment, neck fusion, partial knee replacement. Past Anesthesia/Blood Transfusion Reactions: Postoperative Nausea & Vomiting (PONV) Additional Past Anesthesia/Blood Transfusion Reaction / Comment(s): Pt states years ago she had PONV but not with later surgeries. Pt's des states that the last couple of surgeries pt has had severe hallucinations post op for several days. Past Psychological History: Anxiety, Depression Smoking Status: Never smoker Past Alcohol Use History: None Reported Past Drug Use History: None Reported - Past Family History Father Family Medical History: COPD, CVA/TIA Additional Family Medical History / Comment(s): Father was a smoker. Mother Family Medical History: Unable to Obtain Additional Family Medical History / Comment(s): Pt was raised by stepmother and does not know maternal mother's hx. General Exam - General Exam Comments Initial Comments: Physical Exam GENERAL: Patient is well-developed and well-nourished. Appears dehydrated HENT: Normocephalic, Atraumatic. EYES: PERRL, EOMI PULMONARY: Unlabored respirations. No audible rales rhonchi or wheezing was noted. CARDIOVASCULAR: There is a regular rate and rhythm without any murmurs gallops or rubs. ABDOMEN: Soft and nontender with normal bowel sounds. SKIN: Approximately 6 cm skin tear on the left forearm due to injury while EMS was attempting to move the patient : Deferred NEUROLOGIC: Patient is alert and oriented x2. Moving all extremities spontaneously MUSCULOSKELETAL: Normal extremities with adequate strength and full range of motion. No lower extremity swelling or edema. No calf tenderness. PSYCHIATRIC: Normal psychiatric evaluation. Course Vital Signs 06/17/19 06/18/19 06/18/19 23:19 03:09 05:34 Temperature 98.4 F Pulse Rate 77 Respiratory 18 18 Rate Blood Pressure 144/73 197/97 188/86 O2 Sat by Pulse 94 L 96 97 Oximetry 06/18/19 06:42 Temperature 97.9 F Pulse Rate 80 Respiratory 18 Rate Blood Pressure 178/86 O2 Sat by Pulse 97 Oximetry Medical Decision Making - Medical Decision Making The patient was seen and evaluated history is obtained from EMS and the daughter Patient was apparently fell moving from wheelchair to bed, patient has no pain or injuries that signed out her concerned she may have a urinary tract infection Urinalysis was obtained resulted with no evidence of urinary tract infection Multiple times were obtained IV access, peripheral IV access was on successful, an ultrasound-guided IJ was placed sterilely. Blood was obtained, CBC is unremarkable CMP with hyponatremia, hypokalemia, elevated BUN, hypercalcemia, mildly elevated creatinine kinase Patient receiving IVF Patient somehow inadvertently removed her right IJ. The [employer] was called to bedside and made 3 attempts at peripheral IV. Again an extra long IJ was placed in the right IJ. Patient tended to drink water and had some choking, patient reports this happens sometimes however under states that patient usually drinks 3 bottles of water a day without difficulty. Due to the confusion about whether or not patient has swallowing difficulty a computed tomography scan of the head was ordered. Given that the patient had a fall, has swallowing difficulty, has confusion, lives alone I do not feel she is safe for discharge home. I will plan to admit her to the hospital for PT OT evaluation and possible placement in a safer living env ironment. care was discussed with Dr. cole agrees with this plan. - Lab Data Result diagrams: 06/18/19 02:15 06/18/19 02:15 Lab Results 06/18/19 06/18/19 06/18/19 Range/Units 00:07 02:15 02:15 WBC 8.9 (3.8-10.6) k/uL RBC 4.31 (3.80-5.40) m/uL Hgb 13.0 (11.4-16.0) gm/dL Hct 39.7 (34.0-46.0) % MCV 92.0 (80.0-100.0) fL MCH 30.1 (25.0-35.0) pg MCHC 32.7 (31.0-37.0) g/dL RDW 12.5 (11.5-15.5) % Plt Count 215 (150-450) k/uL Neutrophils % 57 % Lymphocytes % 24 % Monocytes % 8 % Eosinophils % 7 % Basophils % 1 % Neutrophils # 5.1 (1.3-7.7) k/uL Lymphocytes # 2.2 (1.0-4.8) k/uL Monocytes # 0.7 (0-1.0) k/uL Eosinophils # 0.6 (0-0.7) k/uL Basophils # 0.1 (0-0.2) k/uL Sodium 135 L (137-145) mmol/L Potassium 3.1 L (3.5-5.1) mmol/L Chloride 98 (98-107) mmol/L Carbon Dioxide 30 (22-30) mmol/L Anion Gap 7 mmol/L BUN 25 H (7-17) mg/dL Creatinine 0.84 (0.52-1.04) mg/dL Est GFR (CKD-EPI)AfAm 71 (>60 ml/min/1.73 sqM) Est GFR (CKD-EPI)NonAf 62 (>60 ml/min/1.73 sqM) Glucose 109 H (74-99) mg/dL Calcium 10.3 H (8.4-10.2) mg/dL Total Bilirubin 0.4 (0.2-1.3) mg/dL AST 78 H (14-36) U/L ALT 45 (9-52) U/L Alkaline Phosphatase 67 (38-126) U/L Creatine Kinase 560 H (30-135) U/L Total Protein 6.3 (6.3-8.2) g/dL Albumin 3.6 (3.5-5.0) g/dL Urine Color Yellow Urine Appearance Clear (Clear) Urine pH 6.0 (5.0-8.0) Ur Specific [place] 1.021 (1.001-1.035) Urine Protein Trace H (Negative) Urine Glucose (UA) Negative (Negative) Urine Ketones Negative (Negative) Urine Blood Negative (Negative) Urine Nitrite Negative (Negative) Urine Bilirubin Negative (Negative) Urine Urobilinogen <2.0 (<2.0) mg/dL Ur Leukocyte Esterase Negative (Negative) Disposition Clinical Impression: Altered mental status, Generalized weakness Disposition: ADMITTED IP TO THIS [facility] Condition: Serious Referrals: Edi Mata DO [Primary Care Provider] - 1-2 days
[2019-06-18] MEDS: POTASSIUM CHLORIDE ER 20 MEQ TAB.ER PO SCH ×2 (03:48→05:33)
--- NOTE | 2019-06-18 04:03 | XR ---
EXAMINATION TYPE: XR chest 2V DATE OF EXAM: 06/18/2019 COMPARISON: 09/11/2018 HISTORY: Fatigue TECHNIQUE: Frontal and lateral views of the chest are obtained. FINDINGS: There is elevated right diaphragm. There is mild linear density at the lung bases. There i s no heart failure. Thoracic aorta is atheromatous. IMPRESSION: Minimal atelectasis at the lung bases. Chronic elevated right diaphragm. Atelectasis inc reased slightly compared to old exam. No heart failure.
[2019-06-18] MEDS ORDERED: NALOXONE 0.4 MG/ML 1 ML VIAL IV PRN (06:24)
--- NOTE | 2019-06-18 07:51 | CT ---
EXAMINATION TYPE: CT brain wo con DATE OF EXAM: 06/18/2019 COMPARISON: Prior CT 09/11/2018 HISTORY: Altered mental status CT DLP: 1066.4 mGycm Automated exposure control for dose reduction was used. Helical imaging through the brain. FINDINGS: Periventricular white matter shows patchy low attenuation. There is cortical atrophy. No hemorrhage o r hydrocephalus. Cerebral vascular calcifications are noted. Orbits show symmetric appearance. Inflam matory change present within the maxillary sinus on the right greater than left, ethmoid air cells, f rontal sinus on the right. IMPRESSION: NONSPECIFIC WHITE MATTER DEMYELINATION MAY BE RELATED TO CHRONIC SMALL VESSEL ISCHEMIA. AGE-RELATED A TROPHY. NO ACUTE BRAIN ABNORMALITY EVIDENT. SINUS DISEASE.
[2019-06-18] MEDS ORDERED: LORazepam 1 MG TAB PO PRN (10:54)
[2019-06-18] MEDS ORDERED: traMADol 50 MG TAB PO PRN (10:54)
[2019-06-18] MEDS ORDERED: ACETAMINOPHEN TAB 500 MG TAB PO PRN (10:54)
[2019-06-18] MEDS ORDERED: PNEUMOCOCCAL VACC-PNEUMOVAX 23 25 MCG/0.5 ML VIAL IM ONE (12:26)
[2019-06-18] MEDS: LISINOPRIL-HCTZ 10-12.5 MG 1 EACH TAB PO SCH ×2 (12:54→20:35)
[2019-06-18] MEDS: PRIMIDONE 50 MG TAB PO SCH ×2 (12:54→20:35)
[2019-06-18] MEDS: ARIPiprazole 5 MG TAB PO SCH (12:55)
[2019-06-18] MEDS: SENNOSIDES-DOCUSATE SODIUM 1 EACH TAB PO SCH ×2 (12:59→20:35)
[2019-06-18] MEDS: PANTOPRAZOLE 40 MG TABLET PO SCH (12:59)
[2019-06-18] MEDS: amLODIPine 10 MG TAB PO SCH (12:59)
[2019-06-18] MEDS: DULoxetine HCL 60 MG CAPSULE.DR PO SCH (14:06)
[2019-06-18] MEDS: METOPROLOL TARTRATE 12.5 MG TAB PO SCH ×2 (14:06→20:35)
--- NOTE | 2019-06-18 19:26 | P.HPIM ---
History of Present Illness H&P Date: 06/18/19 Chief Complaint: Fall History of presenting complaint: This is a pleasant 89-year-old patient who follows with Dr. Mata, was chronic stable medical conditions include GERD, hyperlipidemia, hypertension, osteoarthritis left renal mass arthritis in multiple joints. Patient lives at [facility]. -Right-sided atelectasis. Normally uses a wheelchair. Did provide her meals. Per the ER notes patient was attempting to transfer from a chair to the bed. Lost her balance. Fell to the ground. Unable to pick herself up. Patient has a life alert. With that she contacted her daughter. No chest pain no palpitation. Denies any pain specific to the fall. Never loss consciousness. Patient will baseline does not have a good appetite. Was constipated for 4 days. He did have a bowel movement today. No nausea vomiting. Just feels tired and rundown. No fever no chills. Review of systems: GEN.: Tired, poor appetite EYES: None HEENT: Decreased hearing NECK: None RESPIRATORY: None CARDIOVASCULAR: None GASTROINTESTINAL: None GENITOURINARY: None MUSCULOSKELETAL: Pain in multiple joints LYMPHATICS: None HEMATOLOGICAL: None PSYCHIATRY: But anxious NEUROLOGICAL: None Social history: Lives [facility]. Most in a wheelchair. Daughter helps her out quite a bit. No smoking or alcohol. Physical examination: VITAL SIGNS: 98.4, 77, 18, 144/73, 94% on 2 L GENERAL: 29.2, laying in bed, tired appearing. EYES: Pupils equal. Conjunctiva normal. HEENT: External appearance of nose and ears normal, oral cavity grossly normal. NECK: JVD not raised; masses not palpable. HEART: First and second heart sounds are normal; no edema. LUNGS: Respiratory rate normal; decreased breath sounds. ABDOMEN: Soft, nontender, liver spleen not palpable, no masses palpable. PSYCH: Alert and oriented x3; mood and affect anxiousl. NEUROLOGICAL: Cranial nerves grossly intact; no facial asymmetry, power and sensation grossly intact. LYMPHATICS: No lymph nodes palpable in the axilla and neck MUSCULAR skeletal: Evidence of OA in the hands and knees INVESTIGATIONS, reviewed in the clinical context: White count 8.9 hemoglobin 13 platelets 215 potassium 3.1 bun 25 creatinine 0.84 calcium 10.3 abdomen 3.6 UA unremarkable Computed tomography scan of the brain shows chronic changes Chest x-ray film personally reviewed by me-atelectasis on the right side, elevated right diaphragm Assessment: -Asthenia/weakness from poor oral intake and dehydration leading to a fall and possibly could be due to myopathy -Acute myopathy from dehydration from decreased oral intake -Hypokalemia likely from diuretic -Essential hypertension -GERD -Hyperlipidemia -Primary osteoarthritis -Left renal mass not for further workup -Right-sided atelectasis -Anxiety depression not otherwise specified Plan: Patient be given a bedside commode. Fall precautions. Start IV fluids. Home medications to be resumed. PTOT benefit may be limited given that patient at baseline and only uses a wheelchair. We will get the input though. Given her age prognosis guarded. Repeat electrolytes in the morning. Past Medical History Past Medical History: CVA/TIA, GERD/Reflux, Hyperlipidemia, Hypertension, Osteoarthritis (OA), Renal Disease Additional Past Medical History / Comment(s): UTI with confusion, taryn's div erticulum with surgery as a 12 yr old child, dysphagia, L renal mass-not being worked up, arthritis in multiple joints, chronic bilateral leg pain, migraines in the past, TIA, falls, past L hip fracture with surgery, past L hand fracture. History of Any Multi-Drug Resistant Organisms: None Reported Past Surgical History: Appendectomy, Back Surgery, Bowel Resection, Hysterectomy, Joint Replacement, Orthopedic Surgery, Tonsillectomy Additional Past Surgical History / Comment(s): Bowel resection d/t merkels diverticulum along with appendectomy, abdominal surgery for adhesions/bowel resections, bilateral cataract removals/lens implants, L hip fracture with hemiarthroplasty, R total hip arthroplasty, L total shoulder, cervical fusion, EGD, colonoscopy. Past Anesthesia/Blood Transfusion Reactions: Postoperative Nausea & Vomiting (PONV) Additional Past Anesthesia/Blood Transfusion Reaction / Comment(s): Pt states years ago she had PONV but not with later surgeries. Pt's des states that the last couple of surgeries pt has had severe hallucinations post op for several days. Smoking Status: Never smoker - Past Family History Father Family Medical History: COPD, CVA/TIA Additional Family Medical History / Comment(s): Father was a smoker. Mother Family Medical History: Unable to Obtain Additional Family Medical History / Comment(s): Pt was raised by stepmother and does not know maternal mother's hx. Medications and Allergies Home Medications Medication Instructions Recorded Confirmed Type ARIPiprazole [Abilify] 5 mg PO DAILY 11/30/14 06/18/19 History DULoxetine HCL [Cymbalta] 60 mg PO DAILY 11/30/14 06/18/19 History amLODIPine [Norvasc] 10 mg PO DAILY #30 tab 12/03/14 06/18/19 Rx Pravastatin Sodium [Pravachol] 20 mg PO HS 04/22/18 06/18/19 History Primidone [Mysoline] 100 mg PO BID 04/22/18 06/18/19 History Acetaminophen [Tylenol] 500 mg PO Q4H PRN 05/30/18 06/18/19 History Cholecalciferol [Vitamin D3 (25 2,000 unit PO DAILY 05/30/18 06/18/19 History Mcg = 1000 Iu)] Cranberry Fruit Extract [Cranberry] 200 mg PO DAILY 05/30/18 06/18/19 History LORazepam [Ativan] 1 mg PO TID PRN #6 tab 06/03/18 06/18/19 Rx Lisinopril-Hctz 10-12.5 mg 1 tab PO BID #1 tab 06/03/18 06/18/19 Rx [Zestoretic 10-12.5] QUEtiapine FUMARATE [SEROquel] 25 mg PO HS #1 tablet 06/03/18 06/18/19 Rx traMADol HCL [Ultram] 50 mg PO Q6HR PRN #10 tablet 06/03/18 06/18/19 Rx Omeprazole 20 mg PO DAILY 09/11/18 06/18/19 History Sennosides-Docusate Sodium 1 tab PO BID 09/11/18 06/18/19 History [Senokot-S] Metoprolol Tartrate [Lopressor] 12.5 mg PO BID 06/18/19 06/18/19 History Allergies Allergy/AdvReac Type Severity Reaction Status Date / Time No Known Allergies Allergy Verified 06/18/19 08:17 Physical Exam Vitals: Vital Signs Temp Pulse Resp BP Pulse Ox 06/18/19 12:44 98.0 F 76 18 170/84 95 06/18/19 09:00 78 18 164/82 96 06/18/19 06:42 97.9 F 80 18 178/86 97 09/25/19 05:34 188/86 97 06/18/19 03:09 18 197/97 96 06/17/19 23:19 98.4 F 77 18 144/73 94 L Intake and Output 06/18/19 06/18/19 06/18/19 06:59 14:59 22:59 Other: # Voids 2 Weight 77.111 kg Results CBC & Chem 7: 06/18/19 02:15 06/18/19 02:15 Labs: Abnormal Lab Results - Last 24 Hours (Table) 06/18/19 06/18/19 Range/Units 00:07 02:15 Sodium 135 L (137-145) mmol/L Potassium 3.1 L (3.5-5.1) mmol/L BUN 25 H (7-17) mg/dL Glucose 109 H (74-99) mg/dL Calcium 10.3 H (8.4-10.2) mg/dL AST 78 H (14-36) U/L Creatine Kinase 560 H (30-135) U/L Urine Protein Trace H (Negative) Thrombosis Risk Factor Assmnt - Choose All That Apply Any of the Below Risk Factors Present?: Yes Each Factor Represents 1 point: Obesity (BMI >25) Other Risk Factors: Yes Each Risk Factor Represents 3 Points: Age 75 years or older Other congenital or acquired thrombophilia - If yes, enter type in comment: No Thrombosis Risk Factor Assessment Total Risk Factor Score: 4 Thrombosis Risk Factor Assessment Level: Moderate Risk
[2019-06-18] MEDS: PRAVASTATIN SODIUM 20 MG TAB PO SCH (20:35)
[2019-06-18] MEDS: LACTATED RINGERS 1,000 ML IV SCH (20:35)
[2019-06-18] MEDS: QUEtiapine 25 MG TAB PO SCH (20:35)
[2019-06-18] MEDS: ENOXAPARIN 40 MG/0.4 ML SYRINGE SQ SCH (20:35)
[2019-06-19 07:32] LABS: African American GFR (CKD) >90 (>60 ml/min/1.73 sqM); Anion Gap 8 mmol/L; Blood Urea Nitrogen 12 mg/dL (7-17); Calcium 10.2 mg/dL (8.4-10.2); Carbon Dioxide 28 mmol/L (22-30); Chloride 99 mmol/L (98-107); Glucose 131 mg/dL (74-99); Potassium 3.5 mmol/L (3.5-5.1); Sodium 135 mmol/L (137-145)
[2019-06-19] MEDS: DULoxetine HCL 60 MG CAPSULE.DR PO SCH (08:53)
[2019-06-19] MEDS: ARIPiprazole 5 MG TAB PO SCH (08:53)
[2019-06-19] MEDS: PANTOPRAZOLE 40 MG TABLET PO SCH (08:53)
[2019-06-19] MEDS: amLODIPine 10 MG TAB PO SCH (08:53)
[2019-06-19] MEDS: LISINOPRIL-HCTZ 10-12.5 MG 1 EACH TAB PO SCH ×2 (08:54→22:48)
[2019-06-19] MEDS: METOPROLOL TARTRATE 12.5 MG TAB PO SCH ×2 (08:54→22:49)
[2019-06-19] MEDS: ENOXAPARIN 40 MG/0.4 ML SYRINGE SQ SCH (08:54)
[2019-06-19] MEDS: PRIMIDONE 50 MG TAB PO SCH ×2 (08:54→22:49)
[2019-06-19] MEDS: SENNOSIDES-DOCUSATE SODIUM 1 EACH TAB PO SCH ×2 (08:54→22:48)
[2019-06-19] MEDS: LACTATED RINGERS 1,000 ML IV SCH (08:57)
--- NOTE | 2019-06-19 20:12 | P.PN ---
Progress Note - Text Progress Note Date: 06/19/19 Chief Complaint: Fall History of presenting complaint: This is a pleasant 89-year-old patient who follows with Dr. Mata, was chronic stable medical conditions include GERD, hyperlipidemia, hypertension, osteoarthritis left renal mass arthritis in multiple joints. Patient lives at [facility]. -Right-sided atelectasis. Normally uses a wheelchair. Did provide her meals. Per the ER notes patient was attempting to transfer from a chair to the bed. Lost her balance. Fell to the ground. Unable to pick herself up. Patient has a life alert. With that she contacted her daughter. No chest pain no palpitation. Denies any pain specific to the fall. Never loss consciousness. Patient will baseline does not have a good appetite. Was constipated for 4 days. He did have a bowel movement today. No nausea vomiting. Just feels tired and rundown. No fever no chills. Today-feels a bit better. Sitting up in a chair. Eating a meal. Daughter the bedside. Review of systems: Was done for constitutional, cardiovascular, GI, pulmonary. relevant finding as above Active Medications Acetaminophen (Tylenol Tab) 500 mg PO Q4H PRN PRN Reason: MILD Pain Amlodipine Besylate (Norvasc) 10 mg PO DAILY [facility] Last Admin: 06/19/19 08:53 Dose: 10 mg Documented by: Aripiprazole (Abilify) 5 mg PO DAILY [facility] Last Admin: 06/19/19 08:53 Dose: 5 mg Documented by: Duloxetine HCl (Cymbalta) 60 mg PO DAILY [facility] Last Admin: 06/19/19 08:53 Dose: 60 mg Documented by: Enoxaparin Sodium (Lovenox) 40 mg SQ DAILY [facility] Last Admin: 06/19/19 08:54 Dose: 40 mg Documented by: Lisinopril/HCTZ (Zestoretic 10-12.5) 1 each PO BID [facility] Last Admin: 06/19/19 08:54 Dose: 1 each Documented by: Lactated Ringer's (Lactated Ringers) 1,000 mls @ 75 mls/hr IV .[id number] [facility] Last Admin: 06/19/19 08:57 Dose: Not Given Documented by: Lorazepam (Ativan) 1 mg PO TID PRN PRN Reason: Anxiety Metoprolol Tartrate (Lopressor) 12.5 mg PO BID [facility] Last Admin: 06/19/19 08:54 Dose: 12.5 mg Documented by: Miscellaneous Information (Potassium Per Protocol) 1 each MISCELLANE DAILY PRN; Protocol PRN Reason: Per Protocol Naloxone HCl (Narcan) 0.2 mg IV Q2M PRN PRN Reason: Opioid Reversal Pantoprazole Sodium (Protonix) 40 mg PO AC-BRKFST [facility] Last Admin: 06/19/19 08:53 Dose: 40 mg Documented by: Pravastatin Sodium (Pravachol) 20 mg PO [facility] Last Admin: 06/18/19 20:35 Dose: 20 mg Documented by: Primidone (Mysoline) 100 mg PO BID [facility] Last Admin: 06/19/19 08:54 Dose: 100 mg Documented by: Quetiapine Fumarate (Seroquel) 25 mg PO [facility] Last Admin: 06/18/19 20:35 Dose: 25 mg Documented by: Senna/Docusate Sodium (Senokot-S) 1 each PO BID [facility] Last Admin: 06/19/19 08:54 Dose: 1 each Documented by: Tramadol HCl (Ultram) 50 mg PO Q6HR PRN PRN Reason: MODERATE Pain Last Admin: 06/18/19 20:39 Dose: 50 mg Documented by: Physical examination: VITAL SIGNS: 98.1, 70, 16, 169/90, 94% room air GENERAL: Sitting up in a chair, eating a large EYES: Pupils equal. Conjunctiva normal. HEENT: External appearance of nose and ears normal, oral cavity grossly normal. NECK: JVD not raised; masses not palpable. HEART: First and second heart sounds are normal; no edema. LUNGS: Respiratory rate normal; decreased breath sounds. ABDOMEN: Soft, nontender, liver spleen not palpable, no masses palpable. PSYCH: Alert and oriented x3; mood and affect anxiousl. MUSCULAR skeletal: Evidence of OA in the hands and knees INVESTIGATIONS, reviewed in the clinical context: Potassium 3.5 Admission labs White count 8.9 hemoglobin 13 platelets 215 potassium 3.1 bun 25 creatinine 0.84 calcium 10.3 abdomen 3.6 UA unremarkable Computed tomography scan of the brain shows chronic changes Chest x-ray film personally reviewed by me-atelectasis on the right side, elevated right diaphragm Assessment: -Asthenia/weakness from poor oral intake and dehydration leading to a fall and possibly could be due to myopathy -Acute myopathy from dehydration from decreased oral intake -Hypokalemia likely from diuretic -Essential hypertension -GERD -Hyperlipidemia -Primary osteoarthritis -Left renal mass not for further workup -Right-sided atelectasis -Anxiety depression not otherwise specified Plan: Does speak to the case management specialist. Patient had to spent 3 nights here and can be discharged on Sunday to rehab. Spoke at length with the daughter the bedside. Given patient's age comorbidities did suggest long-term supervision. The patient daughter states that is some financial issues. Did send that this is from of patient's physical needs standpoint. Hopefully the rehab will benefit her and we'll take it from there.
[2019-06-19] MEDS: QUEtiapine 25 MG TAB PO SCH (22:49)
[2019-06-19] MEDS: PRAVASTATIN SODIUM 20 MG TAB PO SCH (22:49)
[2019-06-20 01:06] VITALS: PULSE 80
[2019-06-20 08:12] VITALS: BP 164/70; RESP 14; TEMP 99.1
[2019-06-20] MEDS: PANTOPRAZOLE 40 MG TABLET PO SCH (09:10)
[2019-06-20] MEDS: PRIMIDONE 50 MG TAB PO SCH (09:10)
[2019-06-20] MEDS: METOPROLOL TARTRATE 12.5 MG TAB PO SCH (09:10)
[2019-06-20] MEDS: LISINOPRIL-HCTZ 10-12.5 MG 1 EACH TAB PO SCH (09:10)
[2019-06-20] MEDS: ARIPiprazole 5 MG TAB PO SCH (09:10)
[2019-06-20] MEDS: amLODIPine 10 MG TAB PO SCH (09:10)
[2019-06-20] MEDS: DULoxetine HCL 60 MG CAPSULE.DR PO SCH (09:10)
[2019-06-20] MEDS: SENNOSIDES-DOCUSATE SODIUM 1 EACH TAB PO SCH (09:10)
[2019-06-20] MEDS: ENOXAPARIN 40 MG/0.4 ML SYRINGE SQ SCH (09:11)
--- NOTE | 2019-06-21 22:21 | P.DS ---
Providers Date of admission: 06/18/19 16:11 Expected date of discharge: 06/21/19 Attending physician: Adiel Posey Primary care physician: Edi Mata [facility] Course: Chief Complaint: Fall History of presenting complaint: This is a pleasant 89-year-old patient who follows with Dr. Mata, was chronic stable medical conditions include GERD, hyperlipidemia, hypertension, osteoarthritis left renal mass arthritis in multiple joints. Patient lives at [facility] Normally uses a wheelchair. Gets Meals on Wheels. Per the ER notes patient was attempting to transfer from a chair to the bed. Lost her balance. Fell to the ground. Unable to pick herself up. Patient has a life alert. With that she contacted her daughter. No chest pain no palpitation. Denies any pain specific to the fall. Never loss consciousness. Patient will baseline does not have a good appetite. Was constipated for 4 days. He did have a bowel movement today. No nausea vomiting. Just feels tired and rundown. No fever no chills. This was felt to be combination of dehydration decreased oral intake and asthenia and myopathy. Initially the daughter was wanted the patient to go to rehab and changed her mind patient be going back to her own place. Care was discussed in detail the patient and the daughter. event operations manager and director social was involved in the discharge planning. Discussion and discharge planning more than 35 minutes Physical examination: VITAL SIGNS: 99.1, 80, 14, 160/70, 94% room air GENERAL: Sitting up in a chair, comfortable EYES: Pupils equal. Conjunctiva normal. HEENT: External appearance of nose and ears normal, oral cavity grossly normal. NECK: JVD not raised; masses not palpable. HEART: First and second heart sounds are normal; no edema. LUNGS: Respiratory rate normal; decreased breath sounds. ABDOMEN: Soft, nontender, liver spleen not palpable, no masses palpable. PSYCH: Alert and oriented x3; mood and affect anxiousl. MUSCULAR skeletal: Evidence of OA in the hands and knees INVESTIGATIONS, reviewed in the clinical context: Potassium 3.5 Admission labs White count 8.9 hemoglobin 13 platelets 215 potassium 3.1 bun 25 creatinine 0.84 calcium 10.3 abdomen 3.6 UA unremarkable Computed tomography scan of the brain shows chronic changes Chest x-ray film personally reviewed by me-atelectasis on the right side, elevated right diaphragm Discharge diagnosis: -Asthenia/weakness from poor oral intake and dehydration leading to a fall and possibly could be due to myopathy -Acute myopathy from dehydration from decreased oral intake -Hypokalemia likely from diuretic -Essential hypertension -GERD -Hyperlipidemia -Primary osteoarthritis -Left renal mass not for further workup -Right-sided atelectasis -Anxiety depression not otherwise specified Disposition: [facility] Patient Condition at Discharge: Stable Plan - Discharge Summary Discharge Rx Participant: No New Discharge Prescriptions: Continue DULoxetine HCL [Cymbalta] 60 mg PO DAILY ARIPiprazole [Abilify] 5 mg PO DAILY amLODIPine [Norvasc] 10 mg PO DAILY #30 tab Pravastatin Sodium [Pravachol] 20 mg PO HS Primidone [Mysoline] 100 mg PO BID Cholecalciferol [Vitamin D3 (25 Mcg = 1000 Iu)] 2,000 unit PO DAILY Cranberry Fruit Extract [Cranberry] 200 mg PO DAILY Acetaminophen [Tylenol] 500 mg PO Q4H PRN PRN Reason: Pain Lisinopril-Hctz 10-12.5 mg [Zestoretic 10-12.5] 1 tab PO BID #1 tab QUEtiapine FUMARATE [SEROquel] 25 mg PO HS #1 tablet LORazepam [Ativan] 1 mg PO TID PRN #6 tab PRN Reason: Anxiety traMADol HCL [Ultram] 50 mg PO Q6HR PRN #10 tablet PRN Reason: Pain Sennosides-Docusate Sodium [Senokot-S] 1 tab PO BID Omeprazole 20 mg PO DAILY Metoprolol Tartrate [Lopressor] 12.5 mg PO BID Discharge Medication List ARIPiprazole [Abilify] 5 mg PO DAILY 11/30/14 [History] DULoxetine HCL [Cymbalta] 60 mg PO DAILY 11/30/14 [History] amLODIPine [Norvasc] 10 mg PO DAILY #30 tab 12/03/14 [Rx] Pravastatin Sodium [Pravachol] 20 mg PO HS 04/22/18 [History] Primidone [Mysoline] 100 mg PO BID 04/22/18 [History] Acetaminophen [Tylenol] 500 mg PO Q4H PRN 05/30/18 [History] Cholecalciferol [Vitamin D3 (25 Mcg = 1000 Iu)] 2,000 unit PO DAILY 05/30/18 [History] Cranberry Fruit Extract [Cranberry] 200 mg PO DAILY 05/30/18 [History] LORazepam [Ativan] 1 mg PO TID PRN #6 tab 06/03/18 [Rx] Lisinopril-Hctz 10-12.5 mg [Zestoretic 10-12.5] 1 tab PO BID #1 tab 06/03/18 [Rx] QUEtiapine FUMARATE [SEROquel] 25 mg PO HS #1 tablet 06/03/18 [Rx] traMADol HCL [Ultram] 50 mg PO Q6HR PRN #10 tablet 06/03/18 [Rx] Omeprazole 20 mg PO DAILY 09/11/18 [History] Sennosides-Docusate Sodium [Senokot-S] 1 tab PO BID 09/11/18 [History] Metoprolol Tartrate [Lopressor] 12.5 mg PO BID 06/18/19 [History] Follow up Appointment(s)/Referral(s): Edi Mata DO [Primary Care Provider] - 1-2 days
== END 2019-06-20 14:17 | disposition home or self-care (01) | DRG 641 ==
LOC: SUPCPDRO 23:18 → EC 23:18 → 3NMEDONC 06-18 06:24 → 4SSUR 06-18 12:37 → OBSVTOIN 06-18 16:11
PROVIDERS: ADMIT Hospitalist; ATTEND Hospitalist
PROC: 3E0234Z Introduction of Serum, Toxoid and Vaccine into Muscle, Percutaneous Approach (ICD-10-PCS; principal; 2019-06-18)
PROC: 3E0234Z Introduction of Serum, Toxoid and Vaccine into Muscle, Percutaneous Approach (ICD-10-PCS; 2019-06-18)
DX: E86.0 Dehydration (principal); J98.11 Atelectasis; E83.52 Hypercalcemia; R13.10 Dysphagia, unspecified; G72.89 Other specified myopathies; E87.1 Hypo-osmolality and hyponatremia; Z23 Encounter for immunization; E87.6 Hypokalemia; I10 Essential (primary) hypertension; N28.89 Other specified disorders of kidney and ureter; T50.2X5A Adverse effect of carbonic-anhydrase inhibitors, benzothiadiazides and other diuretics, initial encounter; K21.9 Gastro-esophageal reflux disease without esophagitis; E78.5 Hyperlipidemia, unspecified; M19.91 Primary osteoarthritis, unspecified site; K59.00 Constipation, unspecified; F41.8 Other specified anxiety disorders; Q43.0 Meckel's diverticulum (displaced) (hypertrophic); W05.0XXA Fall from non-moving wheelchair, initial encounter; Z87.440 Personal history of urinary (tract) infections; Z79.899 Other long term (current) drug therapy; Z86.73 Personal history of transient ischemic attack (TIA), and cerebral infarction without residual deficits; Z87.81 Personal history of (healed) traumatic fracture; Z90.49 Acquired absence of other specified parts of digestive tract; Z90.710 Acquired absence of both cervix and uterus; Z96.643 Presence of artificial hip joint, bilateral; Z96.612 Presence of left artificial shoulder joint; Z96.659 Presence of unspecified artificial knee joint; Z98.1 Arthrodesis status; Z98.42 Cataract extraction status, left eye; Z98.41 Cataract extraction status, right eye; Z96.1 Presence of intraocular lens; Y92.89 Other specified places as the place of occurrence of the external cause; Z82.5 Family history of asthma and other chronic lower respiratory diseases; Z82.3 Family history of stroke; Z81.2 Family history of tobacco abuse and dependence
CPT/HCPCS: 36415; 70450; 71046; 80048; 80053; 81003; 82550; 85025; 90471; 90715; 90732; 96360; 99285

== ENCOUNTER 2019-06-28 18:48 | Observation (INO) | payer MEDICARE ==
[2019-06-28] MEDS ORDERED: SODIUM CHLORIDE 0.9% 500 ML 500 ML IV STA (19:13)
--- NOTE | 2019-06-28 19:21 | ED ---
Weakness HPI - General Chief complaint: Weakness Stated complaint: Altered mental status,weakness Time Seen by Provider: 06/28/19 19:00 Source: patient Mode of arrival: EMS - History of Present Illness Initial comments: 89-year-old female patient with past medical history significant for Parkinson's and dementia presents to the emergency department today for evaluation of weakne ss, sweating, and fall. Patient does not recall falling. She denies any pain or injuries. She does report some nausea at this time, but denies any other symptoms. Daughter is present and states she was with her mother for 3 hours this morning. States that she seemed well, however did take a nap at the end of the their visit which is unusual. Patient denies any recent rash, fever, chills, shortness breath, chest pain, abdominal pain, diarrhea, constipation, back pain, numbness, tingling, dizziness, weakness, hematuria, dysuria, urinary urgency, urinary frequency, headache, visual changes, or any other complaints. - Related Data Home Medications Medication Instructions Recorded Confirmed ARIPiprazole [Abilify] 5 mg PO DAILY 11/30/14 06/28/19 DULoxetine HCL [Cymbalta] 60 mg PO DAILY 11/30/14 06/28/19 Pravastatin Sodium [Pravachol] 20 mg PO HS 04/22/18 06/28/19 Primidone [Mysoline] 100 mg PO BID 04/22/18 06/28/19 Acetaminophen [Tylenol] 500 - 1,000 mg PO Q4H PRN 05/30/18 06/28/19 Cholecalciferol [Vitamin D3 (25 2,000 unit PO DAILY 05/30/18 06/28/19 Mcg = 1000 Iu)] Cranberry Fruit Extract [Cranberry] 200 mg PO DAILY 05/30/18 06/28/19 Omeprazole 20 mg PO DAILY 09/11/18 06/28/19 Sennosides-Docusate Sodium 1 tab PO BID 09/11/18 06/28/19 [Senokot-S] Metoprolol Tartrate [Lopressor] 12.5 mg PO BID 06/18/19 06/28/19 Previous Rx's Medication Instructions Recorded amLODIPine [Norvasc] 10 mg PO DAILY #30 tab 12/03/14 LORazepam [Ativan] 1 mg PO TID PRN #6 tab 06/03/18 Lisinopril-Hctz 10-12.5 mg 1 tab PO BID #1 tab 06/03/18 [Zestoretic 10-12.5] QUEtiapine FUMARATE [SEROquel] 25 mg PO HS #1 tablet 06/03/18 traMADol HCL [Ultram] 50 mg PO Q6HR PRN #10 tablet 06/03/18 Allergies Allergy/AdvReac Type Severity Reaction Status Date / Time No Known Allergies Allergy Verified 06/28/19 22:15 Review of Systems ROS Statement: Those systems with pertinent positive or pertinent negative responses have been documented in the HPI. ROS Other: All systems not noted in ROS Statement are negative. 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 History of Any Multi-Drug Resistant Organisms: None Reported Past Surgical History: Appendectomy, Back Surgery, Bowel Resection, Hysterectomy, Joint Replacement, Orthopedic Surgery, Tonsillectomy Additional Past Surgical History / Comment(s): Bowel resection d/t merkels diverticulum along with appendectomy, abdominal surgery for adhesions/bowel resections, bilateral cataract removals/lens implants, L hip fracture with hemiarthroplasty, R total hip arthroplasty, L total shoulder, cervical fusion, EGD, colonoscopy. Past Anesthesia/Blood Transfusion Reactions: Postoperative Nausea & Vomiting (PONV) Additional Past Anesthesia/Blood Transfusion Reaction / Comment(s): Pt states years ago she had PONV but not with later surgeries. Pt's des states that the last couple of surgeries pt has had severe hallucinations post op for several days. Past Psychological History: Anxiety, Depression Smoking Status: Never smoker - Past Family History Father Family Medical History: COPD, CVA/TIA Additional Family Medical History / Comment(s): Father was a smoker. Mother Family Medical History: Unable to Obtain Additional Family Medical History / Comment(s): Pt was raised by stepmother and does not know maternal mother's hx. General Exam General appearance: alert, in no apparent distress, other (Physical well- developed, well-nourished elderly female patient in no acute distress. Vital signs upon presentation are temperature 97.1F, pulse 76, respirations 18, blood pressure 161/78, pulse ox 98% on room air.) Head exam: Present: atraumatic, normocephalic, normal inspection Eye exam: Present: normal appearance, PERRL, EOMI. Absent: scleral icterus, conjunctival injection, nystagmus, periorbital swelling ENT exam: Present: normal exam, normal oropharynx, mucous membranes moist Neck exam: Present: normal inspection, full ROM, other (Nontender, no step-off, no deformity to firm midline palpation of the posterior cervical spine. Full range of motion without pain or limitation.). Absent: tenderness, meningismus, lymphadenopathy Respiratory exam: Present: normal lung sounds bilaterally. Absent: respiratory distress, wheezes, rales, rhonchi, stridor Cardiovascular Exam: Present: regular rate, normal rhythm, normal heart sounds. Absent: systolic murmur, diastolic murmur, rubs, gallop, clicks GI/Abdominal exam: Present: soft, normal bowel sounds. Absent: distended, tenderness, guarding, rebound, rigid Extremities exam: Present: normal inspection, full ROM, normal capillary refill, other (Skin to the upper and lower extremities is pink, warm, dry. Cap refills less than 3 seconds. Radial pulses 2+ and equal bilaterally. Pedal and posttibial pulses 2+ and equal bilaterally.). Absent: tenderness, pedal edema, joint swelling, calf tenderness Back exam: Present: normal inspection, other (Nontender, no step-off, no deformity to firm midline palpation of the thoracic and lumbar vertebrae. Full range of motion without pain or limitation.). Absent: vertebral tenderness Neurological exam: Present: alert, CN II-XII intact. Absent: oriented X3 (Oriented x1) Psychiatric exam: Present: normal affect, normal mood Skin exam: Present: warm, dry, intact, normal color. Absent: rash Course Vital Signs 06/28/19 06/28/19 06/28/19 18:56 21:00 22:00 Temperature 97.1 F L Pulse Rate 76 71 74 Respiratory 18 16 18 Rate Blood Pressure 161/78 172/86 167/75 O2 Sat by Pulse 98 99 99 Oximetry Medical Decision Making - Medical Decision Making 89-year-old female patient presented to the emergency department today for evaluation of increased confusion, weakness, and fall. Physical examination was relatively unremarkable. She is neurologically intact with no focal deficits. Answering questions appropriately. She denies any pain or injuries from the fall. Labs reviewed and did reveal evidence for urinary tract infection. Given this with altered mental status we will admit for UTI and metabolic encephalopathy. We'll start Rocephin and culture the urine. I did discuss findings, results with the patient and family member, they are agreeable. - Lab Data Result diagrams: 06/28/19 19:34 06/28/19 19:34 Lab Results 06/28/19 06/28/19 06/28/19 Range/Units 19:34 19:34 19:34 WBC 10.0 (3.8-10.6) k/uL RBC 4.77 (3.80-5.40) m/uL Hgb 15.0 (11.4-16.0) gm/dL Hct 44.2 (34.0-46.0) % MCV 92.8 (80.0-100.0) fL MCH 31.4 (25.0-35.0) pg MCHC 33.9 (31.0-37.0) g/dL RDW 12.1 (11.5-15.5) % Plt Count 266 (150-450) k/uL Neutrophils % 69 % Lymphocytes % 18 % Monocytes % 6 % Eosinophils % 4 % Basophils % 1 % Neutrophils # 7.0 (1.3-7.7) k/uL Lymphocytes # 1.8 (1.0-4.8) k/uL Monocytes # 0.6 (0-1.0) k/uL Eosinophils # 0.4 (0-0.7) k/uL Basophils # 0.1 (0-0.2) k/uL PT (9.0-12.0) sec INR (<1.2) APTT (22.0-30.0) sec Sodium 130 L (137-145) mmol/L Potassium 3.9 (3.5-5.1) mmol/L Chloride 89 L (98-107) mmol/L Carbon Dioxide 31 H (22-30) mmol/L Anion Gap 10 mmol/L BUN 14 (7-17) mg/dL Creatinine 0.82 (0.52-1.04) mg/dL Est GFR (CKD-EPI)AfAm 73 (>60 ml/min/1.73 sqM) Est GFR (CKD-EPI)NonAf 64 (>60 ml/min/1.73 sqM) Glucose 128 H (74-99) mg/dL Plasma Lactic Acid Kody 1.7 (0.7-2.0) mmol/L Calcium 10.6 H (8.4-10.2) mg/dL Total Bilirubin 0.5 (0.2-1.3) mg/dL AST 26 (14-36) U/L ALT 29 (9-52) U/L Alkaline Phosphatase 80 (38-126) U/L Troponin I (0.000-0.034) ng/mL Total Protein 7.2 (6.3-8.2) g/dL Albumin 4.2 (3.5-5.0) g/dL Urine Color Urine Appearance (Clear) Urine pH (5.0-8.0) Ur Specific [place] (1.001-1.035) Urine Protein (Negative) Urine Glucose (UA) (Negative) Urine Ketones (Negative) Urine Blood (Negative) Urine Nitrite (Negative) Urine Bilirubin (Negative) Urine Urobilinogen (<2.0) mg/dL Ur Leukocyte Esterase (Negative) Urine RBC (0-5) /hpf Urine WBC (0-5) /hpf Urine WBC Clumps (None) /hpf Ur Squamous Epith Cells (0-4) /hpf Urine Bacteria (None) /hpf Urine Mucus (None) /hpf 06/28/19 06/28/19 06/28/19 Range/Units 19:34 19:34 20:42 WBC (3.8-10.6) k/uL RBC (3.80-5.40) m/uL Hgb (11.4-16.0) gm/dL Hct (34.0-46.0) % MCV (80.0-100.0) fL MCH (25.0-35.0) pg MCHC (31.0-37.0) g/dL RDW (11.5-15.5) % Plt Count (150-450) k/uL Neutrophils % % Lymphocytes % % Monocytes % % Eosinophils % % Basophils % % Neutrophils # (1.3-7.7) k/uL Lymphocytes # (1.0-4.8) k/uL Monocytes # (0-1.0) k/uL Eosinophils # (0-0.7) k/uL Basophils # (0-0.2) k/uL PT 9.9 (9.0-12.0) sec INR 0.9 (<1.2) APTT 23.3 (22.0-30.0) sec Sodium (137-145) mmol/L Potassium (3.5-5.1) mmol/L Chloride (98-107) mmol/L Carbon Dioxide (22-30) mmol/L Anion Gap mmol/L BUN (7-17) mg/dL Creatinine (0.52-1.04) mg/dL Est GFR (CKD-EPI)AfAm (>60 ml/min/1.73 sqM) Est GFR (CKD-EPI)NonAf (>60 ml/min/1.73 sqM) Glucose (74-99) mg/dL Plasma Lactic Acid Kody (0.7-2.0) mmol/L Calcium (8.4-10.2) mg/dL Total Bilirubin (0.2-1.3) mg/dL AST (14-36) U/L ALT (9-52) U/L Alkaline Phosphatase (38-126) U/L Troponin I 0.016 (0.000-0.034) ng/mL Total Protein (6.3-8.2) g/dL Albumin (3.5-5.0) g/dL Urine Color Yellow Urine Appearance Cloudy H (Clear) Urine pH 6.5 (5.0-8.0) Ur Specific [place] 1.019 (1.001-1.035) Urine Protein Trace H (Negative) Urine Glucose (UA) Negative (Negative) Urine Ketones Negative (Negative) Urine Blood Negative (Negative) Urine Nitrite Negative (Negative) Urine Bilirubin Negative (Negative) Urine Urobilinogen <2.0 (<2.0) mg/dL Ur Leukocyte Esterase Large H (Negative) Urine RBC 3 (0-5) /hpf Urine WBC >182 H (0-5) /hpf Urine WBC Clumps Rare H (None) /hpf Ur Squamous Epith Cells <1 (0-4) /hpf Urine Bacteria Moderate H (None) /hpf Urine Mucus Rare H (None) /hpf - EKG Data -: EKG Interpreted by Me EKG Comments: EKG obtained in 194 shows normal sinus rhythm with prolonged QT interval, ventricular rate 71, NV interval 154, QRS duration 102, QT 442, QTc 480. No evidence of ST elevation or depression. Disposition Clinical Impression: Urinary tract infection, Metabolic encephalopathy Disposition: ADMITTED IP TO THIS [facility] Condition: Serious Decision to Admit Reason: Admit from EC Decision Date: 06/28/19 Decision Time: 22:04
[2019-06-28 20:29] LABS: Albumin 4.2 g/dL (3.5-5.0); Calcium 10.6 mg/dL (8.4-10.2); Potassium 3.9 mmol/L (3.5-5.1); Total Bilirubin 0.5 mg/dL (0.2-1.3); Total Protein 7.2 g/dL (6.3-8.2)
[2019-06-28 20:33] LABS: INR 0.9 (<1.2); Partial Thromboplastin Time 23.3 sec (22.0-30.0); Prothrombin Time 9.9 sec (9.0-12.0)
[2019-06-28 20:44] LABS: Basophils # (A) 0.1 k/uL (0-0.2); Basophils % (A) 1 %; Eosinophils # (A) 0.4 k/uL (0-0.7); Eosinophils % (A) 4 %; HCT 44.2 % (34.0-46.0); Lymphocytes # (A) 1.8 k/uL (1.0-4.8); Lymphocytes % (A) 18 %; MCH 31.4 pg (25.0-35.0); MCHC 33.9 g/dL (31.0-37.0); MCV 92.8 fL (80.0-100.0); Mean Platelet Volume 7.7; Monocytes # (A) 0.6 k/uL (0-1.0); Monocytes % (A) 6 %; Neutrophils % (A) 69 %; Platelet Count 266 k/uL (150-450); RBC 4.77 m/uL (3.80-5.40); RDW 12.1 % (11.5-15.5)
[2019-06-28 21:09] LABS: Appearance,Urine Cloudy (Clear); Bacteria,Urine Moderate /hpf; Bilirubin,Urine Negative (Negative); Blood,Urine Negative (Negative); Color,Urine Yellow; Glucose,Urine (UA) Negative (Negative); Ketones,Urine Negative (Negative); Leukocyte Esterase,Urine Large (Negative); Mucus,Urine Rare /hpf; Nitrite,Urine Negative (Negative); PH, Urine 6.5 (5.0-8.0); Protein,Urine Trace (Negative); RBC,Urine 3 /hpf (0-5); Specific Gravity,Urine 1.019 (1.001-1.035); Squamous Epithelial Cell,Urine <1 /hpf (0-4); Urobilinogen,Urine <2.0 mg/dL (<2.0); WBC,Urine >182 /hpf (0-5)
[2019-06-28] MEDS ORDERED: NALOXONE 0.4 MG/ML 1 ML VIAL IV PRN (22:02)
[2019-06-29 00:20] VITALS: BMI 29.1
[2019-06-29] MEDS ORDERED: LORazepam 1 MG TAB PO PRN (00:44)
[2019-06-29] MEDS ORDERED: traMADol 50 MG TAB PO PRN (00:44)
[2019-06-29] MEDS: amLODIPine 10 MG TAB PO SCH (07:26)
[2019-06-29] MEDS: PRIMIDONE 50 MG TAB PO SCH ×2 (07:26→20:38)
[2019-06-29] MEDS: CHOLECALCIFEROL 1,000 UNIT TAB PO SCH (07:26)
[2019-06-29] MEDS: METOPROLOL TARTRATE 12.5 MG TAB PO SCH ×2 (07:26→20:39)
[2019-06-29] MEDS: DULoxetine HCL 60 MG CAPSULE.DR PO SCH (07:26)
[2019-06-29] MEDS: SENNOSIDES-DOCUSATE SODIUM 1 EACH TAB PO SCH ×2 (07:26→20:39)
[2019-06-29] MEDS: PANTOPRAZOLE 40 MG TABLET PO SCH (07:26)
[2019-06-29] MEDS: ARIPiprazole 5 MG TAB PO SCH (07:27)
[2019-06-29] MEDS: LISINOPRIL-HCTZ 10-12.5 MG 1 EACH TAB PO SCH ×2 (07:27→20:39)
[2019-06-29 07:31] LABS: Basophils # (A) 0.1 k/uL (0-0.2); Basophils % (A) 1 %; Eosinophils # (A) 0.4 k/uL (0-0.7); Eosinophils % (A) 4 %; HCT 40.9 % (34.0-46.0); HGB 13.5 gm/dL (11.4-16.0); Lymphocytes # (A) 1.7 k/uL (1.0-4.8); Lymphocytes % (A) 17 %; MCH 31.4 pg (25.0-35.0); MCV 95.2 fL (80.0-100.0); Mean Platelet Volume 6.8; Monocytes # (A) 0.7 k/uL (0-1.0); Monocytes % (A) 6 %; Neutrophils # (A) 7.1 k/uL (1.3-7.7); Neutrophils % (A) 71 %; Platelet Count 211 k/uL (150-450); WBC 10.1 k/uL (3.8-10.6)
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
[2019-06-29] MEDS ORDERED: QUEtiapine 25 MG TAB PO SCH (21:00)
[2019-06-29] MEDS ORDERED: PRAVASTATIN SODIUM 20 MG TAB PO SCH (21:00)
[2019-06-30] MEDS: LISINOPRIL-HCTZ 10-12.5 MG 1 EACH TAB PO SCH (06:03)
[2019-06-30] MEDS: METOPROLOL TARTRATE 12.5 MG TAB PO SCH (08:55)
[2019-06-30] MEDS: PRIMIDONE 50 MG TAB PO SCH (08:55)
[2019-06-30] MEDS: amLODIPine 10 MG TAB PO SCH (08:55)
[2019-06-30] MEDS: ARIPiprazole 5 MG TAB PO SCH (08:56)
[2019-06-30] MEDS: CHOLECALCIFEROL 1,000 UNIT TAB PO SCH (08:56)
[2019-06-30] MEDS: SENNOSIDES-DOCUSATE SODIUM 1 EACH TAB PO SCH (08:56)
[2019-06-30] MEDS: PANTOPRAZOLE 40 MG TABLET PO SCH (08:56)
[2019-06-30] MEDS: DULoxetine HCL 60 MG CAPSULE.DR PO SCH (08:56)
[2019-06-30] MEDS ORDERED: METOPROLOL TARTRATE 12.5 MG TAB PO STA (13:31)
[2019-06-30 14:45] VITALS: BP 165/71; PULSE 79; RESP 18; TEMP 98.8
--- NOTE | 2019-06-30 23:10 | P.DS ---
Providers Date of admission: 06/28/19 21:54 Expected date of discharge: 06/30/19 Attending physician: Adiel Posey Primary care physician: Edi Mata [facility] Course: Interval history: This is a pleasant 89-year-old patient who follows with Dr. Mata, was chronic stable medical conditions include GERD, hyperlipidemia, hypertension, osteoarthritis left renal mass arthritis in multiple joints. Patient lives at [facility] Normally uses a wheelchair. Did provide her meals. She was brought into the ER by her daughter. Patient does not remember much of the history. Not sure she 0. Daughter was with her mother for 3 hours on the day of presentation. She took a nap at the end of the visit. Which is unusual. Doesn't concern about evaluation of weakness sweating and a fall. Patient is found to have a UTI.. Today-patient doing much better. Appetite is really picked up. Eating chocolate coated wafers to this morning. Daughter is present. Ordered the Tello to be discontinued. Urine culture came back to be negative. Patient arranging for some more help advanced patient lives. Physical examination: VITAL SIGNS: 98.6, 72, 16, 150/74, 94% room air GENERAL: Sitting up in a chair, comfortable EYES: Pupils equal. Conjunctiva pale HEENT: External appearance of nose and ears normal, oral cavity grossly normal. Decreased hearing NECK: JVD not raised; masses not palpable. HEART: First and second heart sounds are normal; no edema. LUNGS: Respiratory rate normal; decreased breath sounds. ABDOMEN: Soft, nontender, liver spleen not palpable, no masses palpable. PSYCH: Able to answer simple questions INVESTIGATIONS, reviewed in the clinical context: White count 10 White count 10 hemoglobin 15 platelets 266 potassium 3.9 creatinine 0.82 troponin I less than 0.016 UA positive for leukoesterase WBC, urine culture negative, tilt to date EKG tracing personally reviewed by me-LVH with repolarization Discharge diagnosis: -Asthenia/weakness from UTI with cystitis -Essential hypertension -GERD -Hyperlipidemia -Primary osteoarthritis -Left renal mass not for further workup -Right-sided atelectasis -Anxiety depression not otherwise specified -Chronic medical debility, uses a wheelchair Disposition: -[facility] Patient Condition at Discharge: Stable Plan - Discharge Summary Discharge Rx Participant: No New Discharge Prescriptions: New Cefuroxime Axetil [Ceftin] 500 mg PO BID 3 Days #6 tab Continue DULoxetine HCL [Cymbalta] 60 mg PO DAILY ARIPiprazole [Abilify] 5 mg PO DAILY amLODIPine [Norvasc] 10 mg PO DAILY #30 tab Pravastatin Sodium [Pravachol] 20 mg PO HS Primidone [Mysoline] 100 mg PO BID Cholecalciferol [Vitamin D3 (25 Mcg = 1000 Iu)] 2,000 unit PO DAILY Cranberry Fruit Extract [Cranberry] 200 mg PO DAILY Acetaminophen [Tylenol] 500 - 1,000 mg PO Q4H PRN PRN Reason: Pain Lisinopril-Hctz 10-12.5 mg [Zestoretic 10-12.5] 1 tab PO BID #1 tab QUEtiapine FUMARATE [SEROquel] 25 mg PO HS #1 tablet LORazepam [Ativan] 1 mg PO TID PRN #6 tab PRN Reason: Anxiety traMADol HCL [Ultram] 50 mg PO Q6HR PRN #10 tablet PRN Reason: Pain Sennosides-Docusate Sodium [Senokot-S] 1 tab PO BID Omeprazole 20 mg PO DAILY Metoprolol Tartrate [Lopressor] 12.5 mg PO BID #60 tab Discharge Medication List ARIPiprazole [Abilify] 5 mg PO DAILY 11/30/14 [History] DULoxetine HCL [Cymbalta] 60 mg PO DAILY 11/30/14 [History] amLODIPine [Norvasc] 10 mg PO DAILY #30 tab 12/03/14 [Rx] Pravastatin Sodium [Pravachol] 20 mg PO HS 04/22/18 [History] Primidone [Mysoline] 100 mg PO BID 04/22/18 [History] Acetaminophen [Tylenol] 500 - 1,000 mg PO Q4H PRN 05/30/18 [History] Cholecalciferol [Vitamin D3 (25 Mcg = 1000 Iu)] 2,000 unit PO DAILY 05/30/18 [History] Cranberry Fruit Extract [Cranberry] 200 mg PO DAILY 05/30/18 [History] LORazepam [Ativan] 1 mg PO TID PRN #6 tab 06/03/18 [Rx] Lisinopril-Hctz 10-12.5 mg [Zestoretic 10-12.5] 1 tab PO BID #1 tab 06/03/18 [Rx] QUEtiapine FUMARATE [SEROquel] 25 mg PO HS #1 tablet 06/03/18 [Rx] traMADol HCL [Ultram] 50 mg PO Q6HR PRN #10 tablet 06/03/18 [Rx] Omeprazole 20 mg PO DAILY 09/11/18 [History] Sennosides-Docusate Sodium [Senokot-S] 1 tab PO BID 09/11/18 [History] Cefuroxime Axetil [Ceftin] 500 mg PO BID 3 Days #6 tab 06/30/19 [Rx] Metoprolol Tartrate [Lopressor] 12.5 mg PO BID #60 tab 06/30/19 [Rx] Follow up Appointment(s)/Referral(s): Edi Mata DO [Primary Care Provider] - 07/15/19 2:20 pm [facility], [REFERRING] - Patient Instructions/Handouts: Urinary Tract Infection in Women (DC), Encephalopathy (DC) Activity/Diet/Wound Care/Special Instructions: activity as tolerated-wheelchair at home regular diet as tolerated tello discontinued 06/30, voiding without difficulty Discharge Disposition: HOME WITH HOME HEALTH SERVICES
== END 2019-06-30 14:50 | disposition home health service (06) ==
LOC: EC 18:48 → 4MS4W 21:54
PROVIDERS: ADMIT Hospitalist; ATTEND Hospitalist
DX: N30.90 Cystitis, unspecified without hematuria (principal); G20 Parkinson's disease; F02.80 Dementia in other diseases classified elsewhere, unspecified severity, without behavioral disturbance, psychotic disturbance, mood disturbance, and anxiety; R61 Generalized hyperhidrosis; R11.0 Nausea; K21.9 Gastro-esophageal reflux disease without esophagitis; E78.5 Hyperlipidemia, unspecified; I10 Essential (primary) hypertension; G89.29 Other chronic pain; M79.605 Pain in left leg; M79.604 Pain in right leg; G93.41 Metabolic encephalopathy; J98.11 Atelectasis; N28.89 Other specified disorders of kidney and ureter; M19.91 Primary osteoarthritis, unspecified site; F41.9 Anxiety disorder, unspecified; F32.9 Major depressive disorder, single episode, unspecified; W19.XXXA Unspecified fall, initial encounter; M17.0 Bilateral primary osteoarthritis of knee; M19.042 Primary osteoarthritis, left hand; M19.041 Primary osteoarthritis, right hand; E86.0 Dehydration; G72.9 Myopathy, unspecified; Z91.410 Personal history of adult physical and sexual abuse; Z62.810 Personal history of physical and sexual abuse in childhood; Z79.899 Other long term (current) drug therapy; Z86.73 Personal history of transient ischemic attack (TIA), and cerebral infarction without residual deficits; Z87.19 Personal history of other diseases of the digestive system; Z87.440 Personal history of urinary (tract) infections; Z91.81 History of falling; Z90.49 Acquired absence of other specified parts of digestive tract; Z98.1 Arthrodesis status; Z83.6 Family history of other diseases of the respiratory system; Z82.3 Family history of stroke
CPT/HCPCS: 51702; 96361 ×2; 96366; 96365; 99285; 36415; 93005; 97162; 97165; 80053; 83605; 84484; 85025 ×2; 85610; 85730; 81001; 87086; G0378 ×3; J0696 ×2

== ENCOUNTER 2019-07-10 08:57 | Inpatient (IN) | payer MEDICARE ==
[2019-07-10] MEDS ORDERED: SODIUM CHLORIDE 0.9% 1,000 ML IV STA (09:11)
--- NOTE | 2019-07-10 09:36 | ED ---
General Adult HPI - General Chief complaint: Weakness Stated complaint: UTI Time Seen by Provider: 07/10/19 08:58 Source: patient, EMS Mode of arrival: EMS Limitations: no limitations - History of Present Illness Initial comments: Dictation was produced using [employer] dictation software. please excuse any grammatical, word or spelling errors. Chief Complaint: 89-year-old female brought in by EMS from assisted living facility for generalized weakness and mental status changes. History of Present Illness: 89-year-old female she has multiple comorbidities including dementia. She was brought in by EMS after being found wedged between her bed and her living facility. Patient is a poor historian at this time. According to EMS patient was brought to the emergency department after being found on the ground at home. Patient unable to provide detailed history. She states she feels weak. She denies any pain complaints at this time. According to EMS patient that facility was concerned about patient's mental status however he gave no details specific as to what exactly they were worried about. They did report that patient has a worsening mental status. Chart review shows that patient was recently evaluated in the hospital and was admitted for urinary tract infection. Unable to obtain secondary to mental status PHYSICAL EXAM: General Impression: Alert and oriented x3, not in acute distress, GCS 15 him a slow to answer HEENT: Normocephalic atraumatic, extra-ocular movements intact, pupils equal and reactive to light bilaterally, dry mucous membranes Cardiovascular: Heart regular rate and rhythm, S1&S2 audible, no murmurs, rubs or gallops Chest: Lungs clear to auscultation bilaterally, no rhonchi, no wheeze, no rales Abdomen: Bowel sounds present, abdomen soft, non-tender, non-distended, no organomegaly Musculoskeletal: Pulses present and equal in all extremities, no peripheral edema Motor: no focal deficits noted Neurological: CN II-XII grossly intact, no focal motor or sensory deficits noted Skin: Intact with no visualized rashes Psych: Normal affect and mood ED course: 89-year-old female presents after being found on the ground. Patient has been having worsening mental status and generalized weakness etc. over the last couple days. Vital signs upon arrival shows oxygen saturation of 93% on room air, rest of vital signs within acceptable limits. Medications were reviewed. Patient is a limited historian at this time. She does not have any focal neurologic deficits. Patient appears dehydrated with dry mucous membranes. Return evaluation obtained. Leukocytosis of 18.4. Coag panel is unremarkable. Metabolic panel shows lites acidosis of 2.2 without any anion gap acidosis. Patient is elevated BUN/creatinine ratio suggestive of dehydration. Prematurity peptide elevated at 2000. No signs of rhabdomyolysis. Urinalysis negative. CT brain and chest x-ray is nonacute. At this point patient has elevated leukocytosis without any localizing symptoms or signs to suggest infection. N onetheless, patient was covered with ceftriaxone. There is strong clinical suspicion that patient's symptoms are multifactorial however largely secondary to dehydration. Discussed patient case with Dr. Poesy was went except patient care. She is TSH was slightly elevated concerning for hypothyroidism. Patient given Synthroid. EKG interpretation: Ventricular rate 89, normal sinus rhythm,. Interval 132, care is 86, QTC 452. No KS prolongation, no QTC prolongation, no ST or T-wave changes noted. EKG compared to 06/28/2019 showing no changes. Overall, this EKG is unremarkable - Related Data Home Medications Medication Instructions Recorded Confirmed ARIPiprazole [Abilify] 5 mg PO DAILY 11/30/14 07/10/19 DULoxetine HCL [Cymbalta] 60 mg PO DAILY 11/30/14 07/10/19 Pravastatin Sodium [Pravachol] 20 mg PO HS 04/22/18 07/10/19 Primidone [Mysoline] 100 mg PO BID 04/22/18 07/10/19 Acetaminophen [Tylenol] 500 - 1,000 mg PO Q4H PRN 05/30/18 07/10/19 Cholecalciferol [Vitamin D3 (25 2,000 unit PO DAILY 05/30/18 07/10/19 Mcg = 1000 Iu)] Cranberry Fruit Extract [Cranberry] 200 mg PO DAILY 05/30/18 07/10/19 Omeprazole 20 mg PO DAILY 09/11/18 07/10/19 Sennosides-Docusate Sodium 1 tab PO BID 09/11/18 07/10/19 [Senokot-S] Ensure 1 can PO W/BRKFST 07/10/19 07/10/19 Previous Rx's Medication Instructions Recorded amLODIPine [Norvasc] 10 mg PO DAILY #30 tab 12/03/14 LORazepam [Ativan] 1 mg PO TID PRN #6 tab 06/03/18 Lisinopril-Hctz 10-12.5 mg 1 tab PO BID #1 tab 06/03/18 [Zestoretic 10-12.5] QUEtiapine FUMARATE [SEROquel] 25 mg PO HS #1 tablet 06/03/18 traMADol HCL [Ultram] 50 mg PO Q6HR PRN #10 tablet 06/03/18 Metoprolol Tartrate [Lopressor] 12.5 mg PO BID #60 tab 06/30/19 Allergies Allergy/AdvReac Type Severity Reaction Status Date / Time No Known Allergies Allergy Verified 07/10/19 09:05 Review of Systems ROS Statement: Those systems with pertinent positive or pertinent negative responses have been documented in the HPI. ROS Other: All systems not noted in ROS Statement are negative. 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 History of Any Multi-Drug Resistant Organisms: None Reported Past Surgical History: Appendectomy, Back Surgery, Bowel Resection, Hysterectomy, Joint Replacement, Orthopedic Surgery, Tonsillectomy Additional Past Surgical History / Comment(s): Bowel resection d/t merkels diverticulum along with appendectomy, abdominal surgery for adhesions/bowel resections, bilateral cataract removals/lens implants, L hip fracture with hemiarthroplasty, R total hip arthroplasty, L total shoulder, cervical fusion, EGD, colonoscopy. Past Anesthesia/Blood Transfusion Reactions: Postoperative Nausea & Vomiting (PONV) Additional Past Anesthesia/Blood Transfusion Reaction / Comment(s): Pt states years ago she had PONV but not with later surgeries. Pt's des states that the last couple of surgeries pt has had severe hallucinations post op for several days. Past Psychological History: Anxiety, Depression Smoking Status: Never smoker Past Alcohol Use History: None Reported Past Drug Use History: None Reported - Past Family History Father Family Medical History: COPD, CVA/TIA Additional Family Medical History / Comment(s): Father was a smoker. Mother Family Medical History: Unable to Obtain Additional Family Medical History / Comment(s): Pt was raised by stepmother and does not know maternal mother's hx. General Exam Limitations: no limitations Course Vital Signs 07/10/19 07/10/19 07/10/19 09:11 10: 12:00 Temperature 98.2 F Pulse Rate 87 87 83 Respiratory 16 16 16 Rate Blood Pressure 160/76 150/70 178/77 O2 Sat by Pulse 93 L 97 95 Oximetry Medical Decision Making - Lab Data Result diagrams: 07/10/19 10:00 07/10/19 10:00 Lab Results 07/10/19 07/10/19 07/10/19 Range/Units 10:00 10:00 10:00 WBC 18.4 H (3.8-10.6) k/uL RBC 3.99 (3.80-5.40) m/uL Hgb 12.5 (11.4-16.0) gm/dL Hct 37.3 (34.0-46.0) % MCV 93.6 (80.0-100.0) fL MCH 31.4 (25.0-35.0) pg MCHC 33.5 (31.0-37.0) g/dL RDW 12.4 (11.5-15.5) % Plt Count 271 (150-450) k/uL Neutrophils % 85 % Lymphocytes % 10 % Monocytes % 4 % Eosinophils % 0 % Basophils % 0 % Neutrophils # 15.6 H (1.3-7.7) k/uL Lymphocytes # 1.8 (1.0-4.8) k/uL Monocytes # 0.7 (0-1.0) k/uL Eosinophils # 0.0 (0-0.7) k/uL Basophils # 0.1 (0-0.2) k/uL PT (9.0-12.0) sec INR (<1.2) APTT (22.0-30.0) sec Sodium 135 L (137-145) mmol/L Potassium 4.8 (3.5-5.1) mmol/L Chloride 95 L (98-107) mmol/L Carbon Dioxide 29 (22-30) mmol/L Anion Gap 11 mmol/L BUN 30 H (7-17) mg/dL Creatinine 1.09 H (0.52-1.04) mg/dL Est GFR (CKD-EPI)AfAm 52 (>60 ml/min/1.73 sqM) Est GFR (CKD-EPI)NonAf 45 (>60 ml/min/1.73 sqM) Glucose 168 H (74-99) mg/dL Plasma Lactic Acid Kody 2.2 H* (0.7-2.0) mmol/L Calcium 11.0 H (8.4-10.2) mg/dL Magnesium 2.2 (1.6-2.3) mg/dL Total Bilirubin 0.7 (0.2-1.3) mg/dL AST 28 (14-36) U/L ALT 34 (9-52) U/L Alkaline Phosphatase 74 (38-126) U/L Ammonia <9 (<30) umol/L Creatine Kinase 137 H (30-135) U/L Troponin I (0.000-0.034) ng/mL NT-Pro-B Natriuret Pep pg/mL Total Protein 7.0 (6.3-8.2) g/dL Albumin 4.2 (3.5-5.0) g/dL TSH 5.410 H (0.465-4.680) mIU/L Urine Color Urine Appearance (Clear) Urine pH (5.0-8.0) Ur Specific Lynn (1.001-1.035) Urine Protein (Negative) Urine Glucose (UA) (Negative) Urine Ketones (Negative) Urine Blood (Negative) Urine Nitrite (Negative) Urine Bilirubin (Negative) Urine Urobilinogen (<2.0) mg/dL Ur Leukocyte Esterase (Negative) 07/10/19 07/10/19 07/10/19 Range/Units 10:00 10:00 10:00 WBC (3.8-10.6) k/uL RBC (3.80-5.40) m/uL Hgb (11.4-16.0) gm/dL Hct (34.0-46.0) % MCV (80.0-100.0) fL MCH (25.0-35.0) pg MCHC (31.0-37.0) g/dL RDW (11.5-15.5) % Plt Count (150-450) k/uL Neutrophils % % Lymphocytes % % Monocytes % % Eosinophils % % Basophils % % Neutrophils # (1.3-7.7) k/uL Lymphocytes # (1.0-4.8) k/uL Monocytes # (0-1.0) k/uL Eosinophils # (0-0.7) k/uL Basophils # (0-0.2) k/uL PT 9.6 (9.0-12.0) sec INR 0.9 (<1.2) APTT 22.0 (22.0-30.0) sec Sodium (137-145) mmol/L Potassium (3.5-5.1) mmol/L Chloride (98-107) mmol/L Carbon Dioxide (22-30) mmol/L Anion Gap mmol/L BUN (7-17) mg/dL Creatinine (0.52-1.04) mg/dL Est GFR (CKD-EPI)AfAm (>60 ml/min/1.73 sqM) Est GFR (CKD-EPI)NonAf (>60 ml/min/1.73 sqM) Glucose (74-99) mg/dL Plasma Lactic Acid Kody (0.7-2.0) mmol/L Calcium (8.4-10.2) mg/dL Magnesium (1.6-2.3) mg/dL Total Bilirubin (0.2-1.3) mg/dL AST (14-36) U/L ALT (9-52) U/L Alkaline Phosphatase (38-126) U/L Ammonia (<30) umol/L Creatine Kinase (30-135) U/L Troponin I 0.017 (0.000-0.034) ng/mL NT-Pro-B Natriuret Pep 2290 pg/mL Total Protein (6.3-8.2) g/dL Albumin (3.5-5.0) g/dL TSH (0.465-4.680) mIU/L Urine Color Urine Appearance (Clear) Urine pH (5.0-8.0) Ur Specific Lynn (1.001-1.035) Urine Protein (Negative) Urine Glucose (UA) (Negative) Urine Ketones (Negative) Urine Blood (Negative) Urine Nitrite (Negative) Urine Bilirubin (Negative) Urine Urobilinogen (<2.0) mg/dL Ur Leukocyte Esterase (Negative) 07/10/19 Range/Units 12:10 WBC (3.8-10.6) k/uL RBC (3.80-5.40) m/uL Hgb (11.4-16.0) gm/dL Hct (34.0-46.0) % MCV (80.0-100.0) fL MCH (25.0-35.0) pg MCHC (31.0-37.0) g/dL RDW (11.5-15.5) % Plt Count (150-450) k/uL Neutrophils % % Lymphocytes % % Monocytes % % Eosinophils % % Basophils % % Neutrophils # (1.3-7.7) k/uL Lymphocytes # (1.0-4.8) k/uL Monocytes # (0-1.0) k/uL Eosinophils # (0-0.7) k/uL Basophils # (0-0.2) k/uL PT (9.0-12.0) sec INR (<1.2) APTT (22.0-30.0) sec Sodium (137-145) mmol/L Potassium (3.5-5.1) mmol/L Chloride (98-107) mmol/L Carbon Dioxide (22-30) mmol/L Anion Gap mmol/L BUN (7-17) mg/dL Creatinine (0.52-1.04) mg/dL Est GFR (CKD-EPI)AfAm (>60 ml/min/1.73 sqM) Est GFR (CKD-EPI)NonAf (>60 ml/min/1.73 sqM) Glucose (74-99) mg/dL Plasma Lactic Acid Kody (0.7-2.0) mmol/L Calcium (8.4-10.2) mg/dL Magnesium (1.6-2.3) mg/dL Total Bilirubin (0.2-1.3) mg/dL AST (14-36) U/L ALT (9-52) U/L Alkaline Phosphatase (38-126) U/L Ammonia (<30) umol/L Creatine Kinase (30-135) U/L Troponin I (0.000-0.034) ng/mL NT-Pro-B Natriuret Pep pg/mL Total Protein (6.3-8.2) g/dL Albumin (3.5-5.0) g/dL TSH (0.465-4.680) mIU/L Urine Color Yellow Urine Appearance Clear (Clear) Urine pH 6.0 (5.0-8.0) Ur Specific Lynn 1.021 (1.001-1.035) Urine Protein Trace H (Negative) Urine Glucose (UA) Negative (Negative) Urine Ketones Negative (Negative) Urine Blood Negative (Negative) Urine Nitrite Negative (Negative) Urine Bilirubin Negative (Negative) Urine Urobilinogen <2.0 (<2.0) mg/dL Ur Leukocyte Esterase Negative (Negative) Disposition Clinical Impression: Dehydration Disposition: ADMITTED IP TO THIS HOSP Condition: Fair Referrals: Edi Mata DO [Primary Care Provider] - 1-2 days Decision Time: 13:05
[2019-07-10 10:44] LABS: Ammonia <9 umol/L (<30); INR 0.9 (<1.2); Prothrombin Time 9.6 sec (9.0-12.0)
[2019-07-10 10:46] LABS: Lactic Acid, Venous 2.2 mmol/L (0.7-2.0)
[2019-07-10 10:47] LABS: Albumin 4.2 g/dL (3.5-5.0); Magnesium 2.2 mg/dL (1.6-2.3); Potassium 4.8 mmol/L (3.5-5.1); Total Bilirubin 0.7 mg/dL (0.2-1.3)
--- NOTE | 2019-07-10 10:59 | XR ---
EXAMINATION TYPE: XR chest 2V DATE OF EXAM: 07/10/2019 COMPARISON: 06/18/2019 HISTORY: Weakness and shortness of breath TECHNIQUE: Frontal and lateral views of the chest are obtained. FINDINGS: Right hemidiaphragm elevation is seen that is chronic. Chronic right midlung atelectasis. Nerve root stimulator on the left. Cardiomediastinal silhouette is upper limits of normal stable from the prior. No new focal consolidation, pleural effusion or pneumothorax. Diffuse osseous demineraliz ation is seen. IMPRESSION: Chronic changes with no acute cardiopulmonary process.
--- NOTE | 2019-07-10 11:00 | CT ---
EXAMINATION TYPE: CT brain wo con DATE OF EXAM: 07/10/2019 COMPARISON: 06/18/2019 INDICATION: Weakness DLP: 1036.4 mGycm, Automated exposure control for dose reduction was used. CONTRAST: None CT of the brain is performed utilizing 3 mm thick sections through the posterior fossa and 3 mm thick sections through the remaining calvarium. Study is performed within 24 hours of arrival to the hosp ital. No abnormal hyperdensity is present to suggest an acute intracranial hemorrhage. No mass lesion is evident. No acute infarcts are evident. There is patchy periventricular white matter hypodensity, likely on th e basis of chronic white matter ischemic changes. Ventricles and sulci are prominent for the patient age. Paranasal sinuses and mastoid air cells within the [id number] are clear. IMPRESSIONS: 1. Atrophy with periventricular white matter ischemic changes. Findings are stable from May 26.
[2019-07-10 11:01] LABS: Basophils # (A) 0.1 k/uL (0-0.2); Basophils % (A) 0 %; Eosinophils % (A) 0 %; HCT 37.3 % (34.0-46.0); HGB 12.5 gm/dL (11.4-16.0); Lymphocytes # (A) 1.8 k/uL (1.0-4.8); Lymphocytes % (A) 10 %; MCH 31.4 pg (25.0-35.0); MCHC 33.5 g/dL (31.0-37.0); MCV 93.6 fL (80.0-100.0); Mean Platelet Volume 8.1; Monocytes # (A) 0.7 k/uL (0-1.0); Monocytes % (A) 4 %; Neutrophils # (A) 15.6 k/uL (1.3-7.7); Neutrophils % (A) 85 %; Platelet Count 271 k/uL (150-450); RBC 3.99 m/uL (3.80-5.40); RDW 12.4 % (11.5-15.5); WBC 18.4 k/uL (3.8-10.6)
[2019-07-10] MEDS ORDERED: LEVOTHYROXINE IVP 100 MCG/5 ML VIAL IV STA (11:58)
[2019-07-10 12:53] LABS: Appearance,Urine Clear (Clear); Bilirubin,Urine Negative (Negative); Blood,Urine Negative (Negative); Color,Urine Yellow; Glucose,Urine (UA) Negative (Negative); Ketones,Urine Negative (Negative); Leukocyte Esterase,Urine Negative (Negative); Nitrite,Urine Negative (Negative); Protein,Urine Trace (Negative); Specific Gravity,Urine 1.021 (1.001-1.035); Urobilinogen,Urine <2.0 mg/dL (<2.0)
[2019-07-10] MEDS ORDERED: NALOXONE 0.4 MG/ML 1 ML VIAL IV PRN (13:02)
[2019-07-10] MEDS ORDERED: ONDANSETRON 4 MG/2 ML VIAL IVP PRN (13:02)
[2019-07-10] MEDS ORDERED: ACETAMINOPHEN TAB 325 MG TAB PO PRN (13:02)
[2019-07-10] MEDS: SODIUM CHLORIDE 0.9% 1,000 ML IV SCH (17:05)
[2019-07-10] MEDS ORDERED: traMADol 50 MG TAB PO PRN (20:33)
[2019-07-10] MEDS ORDERED: ACETAMINOPHEN TAB 500 MG TAB PO PRN (20:33)
[2019-07-10] MEDS: METOPROLOL TARTRATE 12.5 MG TAB PO SCH (22:07)
[2019-07-10] MEDS: LISINOPRIL-HCTZ 10-12.5 MG 1 EACH TAB PO SCH (22:07)
[2019-07-10] MEDS: PRAVASTATIN SODIUM 20 MG TAB PO SCH (22:07)
[2019-07-10] MEDS: QUEtiapine 25 MG TAB PO SCH (22:07)
[2019-07-10] MEDS: SENNOSIDES-DOCUSATE SODIUM 1 EACH TAB PO SCH (22:07)
[2019-07-10] MEDS: PRIMIDONE 50 MG TAB PO SCH (22:07)
[2019-07-11] MEDS: SODIUM CHLORIDE 0.9% 1,000 ML IV SCH ×3 (03:37→22:20)
[2019-07-11] MEDS: DULoxetine HCL 60 MG CAPSULE.DR PO SCH (08:37)
[2019-07-11] MEDS: CHOLECALCIFEROL 1,000 UNIT TAB PO SCH (08:37)
[2019-07-11] MEDS: PANTOPRAZOLE 40 MG TABLET PO SCH (08:38)
[2019-07-11] MEDS: SENNOSIDES-DOCUSATE SODIUM 1 EACH TAB PO SCH ×2 (08:38→22:19)
[2019-07-11] MEDS: amLODIPine 10 MG TAB PO SCH (08:38)
[2019-07-11] MEDS: PRIMIDONE 50 MG TAB PO SCH ×2 (08:38→22:19)
[2019-07-11] MEDS: METOPROLOL TARTRATE 12.5 MG TAB PO SCH ×2 (08:38→22:19)
[2019-07-11] MEDS: LISINOPRIL-HCTZ 10-12.5 MG 1 EACH TAB PO SCH ×2 (08:39→22:20)
[2019-07-11] MEDS ORDERED: NON FORMULARY DRUG (Cranberry Fruit Extract [Cranberry] 200 MG) PO SCH (09:00)
[2019-07-11] MEDS: ARIPiprazole 5 MG TAB PO SCH (09:53)
[2019-07-11] MEDS: LORazepam 1 MG TAB PO PRN (10:56)
--- NOTE | 2019-07-11 20:46 | P.HPIM ---
History of Present Illness H&P Date: 07/11/19 Chief Complaint: Found between the bed and the wall History of presenting complaint: This is a pleasant 89-year-old patient who follows with Dr. Mata,. 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 Patient lives at [facility] Normally uses a wheelchair. Did provide her meals.. Patient was in the hospital from June 28 through June 30. Had presented with asthenia weakness. Was diagnosed to have UTI and cystitis. Sent home with antibiotics. Patient presents with feeling weak and tired. EMS was called out. Patient was followed floor. Not passed out. Just weak and tired. When EMS called that she was able to carry out a conversation. Denies any chest pain no palpitation. Just rundown. Appetite has not been very good. No fever no chills. Denied den ies any respiratory or urinary symptoms. Review of systems: GEN.: Tired, decreased appetite EYES: None HEENT: Decreased hearing NECK: None RESPIRATORY: None CARDIOVASCULAR: None GASTROINTESTINAL: None GENITOURINARY: None MUSCULOSKELETAL: Pain in multiple joints LYMPHATICS: None HEMATOLOGICAL: None PSYCHIATRY: But anxious, but forgetful NEUROLOGICAL: None Social history: Lives at [facility]. Most in a wheelchair. Daughter helps her out quite a bit. No smoking or alcohol. Physical examination: VITAL SIGNS: 98.2, 87, 16, 160/76, para 3% room air GENERAL: BMI 28.3, sitting at the edge of bed, tired EYES: Pupils equal. Conjunctiva pale HEENT: External appearance of nose and ears normal, oral cavity grossly normal. Decreased hearing NECK: JVD not raised; masses not palpable. HEART: First and second heart sounds are normal; no edema. LUNGS: Respiratory rate normal; decreased breath sounds. ABDOMEN: Soft, nontender, liver spleen not palpable, no masses palpable. PSYCH: Able to answer simple questions NEUROLOGICAL: Cranial nerves grossly intact; no facial asymmetry, power and sensation grossly intact. LYMPHATICS: No lymph nodes palpable in the axilla and neck MUSCULAR skeletal: Evidence of OA in the hands and knees INVESTIGATIONS, reviewed in the clinical context: White count 18.4 hemoglobin 12.5 potassium 4.81 3021.09 lactic acid 2.2 UA negative for leukoesterase and nitrite EKG tracing-no specific ST segment changes in lateral leads Chest x-ray film personally reviewed by me-right hemidiaphragm elevated. Some atelectasis. 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 No obvious evidence of infection. PTOT to see the patient. Patient does use a wheelchair as a baseline. Repeat labs in 24 hours. Patient probably needs long-term placement. This was discussed with the daughter before. Past Medical History Past Medical History: CVA/TIA, GERD/Reflux, Hyperlipidemia, Hypertension, Osteoarthritis (OA), Renal Disease Additional Past Medical History / Comment(s): Pt recently admitted to [facility] on 06/28/19 with UTI with weakness/R lung atellectasis. 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 History of Any Multi-Drug Resistant Organisms: None Reported Past Surgical History: Appendectomy, Back Surgery, Bowel Resection, Hysterectomy, Joint Replacement, Orthopedic Surgery, Tonsillectomy Additional Past Surgical History / Comment(s): Bowel resection d/t merkels diverticulum along with appendectomy, abdominal surgery for adhesions/bowel rese ctions, bilateral cataract removals/lens implants, L hip fracture with hemiarthroplasty, R total hip arthroplasty, L total shoulder, cervical fusion, EGD, colonoscopy. Past Anesthesia/Blood Transfusion Reactions: Postoperative Nausea & Vomiting (PONV) Additional Past Anesthesia/Blood Transfusion Reaction / Comment(s): Pt states years ago she had PONV but not with later surgeries. Pt's des states that the last couple of surgeries pt has had severe hallucinations post op for several days. Smoking Status: Never smoker - Past Family History Father Family Medical History: COPD, CVA/TIA Additional Family Medical History / Comment(s): Father was a smoker. Mother Family Medical History: Unable to Obtain Additional Family Medical History / Comment(s): Pt was raised by stepmother and does not know maternal mother's hx. Medications and Allergies Home Medications Medication Instructions Recorded Confirmed Type ARIPiprazole [Abilify] 5 mg PO DAILY 11/30/14 07/10/19 History DULoxetine HCL [Cymbalta] 60 mg PO DAILY 11/30/14 07/10/19 History amLODIPine [Norvasc] 10 mg PO DAILY #30 tab 12/03/14 07/10/19 Rx Pravastatin Sodium [Pravachol] 20 mg PO HS 04/22/18 07/10/19 History Primidone [Mysoline] 100 mg PO BID 04/22/18 07/10/19 History Acetaminophen [Tylenol] 500 - 1,000 mg PO Q4H PRN 05/30/18 07/10/19 History Cholecalciferol [Vitamin D3 (25 2,000 unit PO DAILY 05/30/18 07/10/19 History Mcg = 1000 Iu)] Cranberry Fruit Extract [Cranberry] 200 mg PO DAILY 05/30/18 07/10/19 History LORazepam [Ativan] 1 mg PO TID PRN #6 tab 06/03/18 07/10/19 Rx Lisinopril-Hctz 10-12.5 mg 1 tab PO BID #1 tab 06/03/18 07/10/19 Rx [Zestoretic 10-12.5] QUEtiapine FUMARATE [SEROquel] 25 mg PO HS #1 tablet 06/03/18 07/10/19 Rx traMADol HCL [Ultram] 50 mg PO Q6HR PRN #10 tablet 06/03/18 07/10/19 Rx Omeprazole 20 mg PO DAILY 09/11/18 07/10/19 History Sennosides-Docusate Sodium 1 tab PO BID 09/11/18 07/10/19 History [Senokot-S] Metoprolol Tartrate [Lopressor] 12.5 mg PO BID #60 tab 06/30/19 07/10/19 Rx Ensure 1 can PO W/BRKFST 07/10/19 07/10/19 History Allergies Allergy/AdvReac Type Severity Reaction Status Date / Time No Known Allergies Allergy Verified 10/17/19 17:07 Physical Exam Vitals: Vital Signs Temp Pulse Pulse Resp BP BP Pulse Ox 07/11/19 07:00 98.2 F 82 12 176/68 94 L 07/11/19 02:05 98.5 F 74 174/68 98 07/10/19 20:30 95 07/10/19 19:30 98.5 F 87 16 151/65 93 L 07/10/19 16:00 98 F 93 16 183/75 94 L 07/10/19 15:52 98.0 F 93 16 183/75 94 L 07/10/19 15:10 86 16 95 07/10/19 15:00 91 18 143/89 96 07/10/19 14:50 90 16 143/89 95 07/10/19 14:40 89 19 143/89 95 07/10/19 14:30 87 16 143/89 97 07/10/19 14:20 89 16 143/89 96 07/10/19 14:10 89 16 143/89 96 07/10/19 14:00 85 18 175/77 97 07/10/19 13:50 86 16 175/77 100 07/10/19 13:40 84 16 175/77 97 07/10/19 13:30 85 16 175/77 99 07/10/19 13:20 82 16 175/77 98 07/10/19 13:10 82 19 175/77 97 07/10/19 13:00 84 16 178/77 99 07/10/19 12:50 81 15 178/77 94 L 07/10/19 12:40 82 16 153/71 93 L 07/10/19 12:30 81 14 153/71 07/10/19 12:20 86 14 153/71 83 L 07/10/19 12:10 77 19 153/71 87 L 07/10/19 12:00 81 19 153/71 100 07/10/19 11:50 82 18 153/71 100 07/10/19 11:40 80 16 153/71 100 07/10/19 11:30 84 20 153/71 97 07/10/19 11:20 81 16 153/71 98 07/10/19 11:10 87 16 153/71 98 07/10/19 11:00 86 16 150/70 98 07/10/19 10:50 88 16 150/70 99 07/10/19 10:40 150/70 10/17/19 10:30 92 19 150/70 96 07/10/19 10:20 90 31 H 150/70 07/10/19 10:19 87 16 150/70 97 07/10/19 10:10 89 16 150/70 Intake and Output 07/10/19 07/11/19 07/11/19 22:59 06:59 14:59 Intake Total 300 1050 Output Total 425 Balance 300 625 Intake: Intake, IV Titration 300 1000 Amount Sodium Chloride 0.9% 1, 300 1000 000 ml @ 100 mls/hr IV . Q10H [facility] Rx#:[id number] Oral 50 Output: Urine 425 Other: Voiding Method Bedpan Bedpan Bedpan Diaper Diaper Diaper Incontinent Incontinent Incontinent # Voids 4 Results CBC & Chem 7: 07/10/19 10:00 07/10/19 10:00 Labs: Abnormal Lab Results - Last 24 Hours (Table) 07/10/19 07/10/19 07/10/19 Range/Units 10:00 10:00 10:00 WBC 18.4 H (3.8-10.6) k/uL Neutrophils # 15.6 H (1.3-7.7) k/uL Sodium 135 L (137-145) mmol/L Chloride 95 L (98-107) mmol/L BUN 30 H (7-17) mg/dL Creatinine 1.09 H (0.52-1.04) mg/dL Glucose 168 H (74-99) mg/dL Plasma Lactic Acid Kody 2.2 H* (0.7-2.0) mmol/L Calcium 11.0 H (8.4-10.2) mg/dL Creatine Kinase 137 H (30-135) U/L TSH 5.410 H (0.465-4.680) mIU/L Urine Protein (Negative) 07/10/19 07/10/19 07/10/19 Range/Units 12:10 14:52 18:53 WBC (3.8-10.6) k/uL Neutrophils # (1.3-7.7) k/uL Sodium (137-145) mmol/L Chloride (98-107) mmol/L BUN (7-17) mg/dL Creatinine (0.52-1.04) mg/dL Glucose (74-99) mg/dL Plasma Lactic Acid Kody 2.4 H* 2.7 H* (0.7-2.0) mmol/L Calcium (8.4-10.2) mg/dL Creatine Kinase (30-135) U/L TSH (0.465-4.680) mIU/L Urine Protein Trace H (Negative) Thrombosis Risk Factor Assmnt - Choose All That Apply Any of the Below Risk Factors Present?: Yes Each Factor Represents 1 point: Obesity (BMI >25) Other Risk Factors: Yes Each Risk Factor Represents 3 Points: Age 75 years or older Other congenital or acquired thrombophilia - If yes, enter type in comment: No Thrombosis Risk Factor Assessment Total Risk Factor Score: 4 Thrombosis Risk Factor Assessment Level: Moderate Risk
[2019-07-11] MEDS: QUEtiapine 25 MG TAB PO SCH (22:19)
[2019-07-11] MEDS: PRAVASTATIN SODIUM 20 MG TAB PO SCH (22:19)
[2019-07-12] MEDS: SODIUM CHLORIDE 0.9% 1,000 ML IV SCH ×2 (05:32→09:42)
[2019-07-12 07:39] LABS: Calcium 8.9 mg/dL (8.4-10.2); Potassium 3.8 mmol/L (3.5-5.1)
[2019-07-12] MEDS: amLODIPine 10 MG TAB PO SCH (09:44)
[2019-07-12] MEDS: CHOLECALCIFEROL 1,000 UNIT TAB PO SCH (09:44)
[2019-07-12] MEDS: SENNOSIDES-DOCUSATE SODIUM 1 EACH TAB PO SCH ×2 (09:44→21:14)
[2019-07-12] MEDS: METOPROLOL TARTRATE 12.5 MG TAB PO SCH ×2 (09:44→21:13)
[2019-07-12] MEDS: PRIMIDONE 50 MG TAB PO SCH ×2 (09:44→21:15)
[2019-07-12] MEDS: PANTOPRAZOLE 40 MG TABLET PO SCH (09:44)
[2019-07-12] MEDS: DULoxetine HCL 60 MG CAPSULE.DR PO SCH (09:44)
[2019-07-12] MEDS: LISINOPRIL-HCTZ 10-12.5 MG 1 EACH TAB PO SCH ×2 (09:45→21:16)
[2019-07-12] MEDS: ARIPiprazole 5 MG TAB PO SCH (09:45)
[2019-07-12] MEDS: PSYLLIUM HUSK 100% 6 GM PACKET PO SCH (14:59)
--- NOTE | 2019-07-12 18:02 | P.PN ---
Progress Note - Text Progress Note Date: 07/12/19 Chief Complaint: Found between the bed and the wall History of presenting complaint: This is a pleasant 89-year-old patient who follows with Dr. Mata,. 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 Patient lives at [facility] Normally uses a wheelchair. Did provide her meals.. Patient was in the hospital from June 28 through June 30. Had presented with asthenia weakness. Was diagnosed to have UTI and cystitis. Sent home with antibiotics. Patient presents with feeling weak and tired. EMS was called out. Patient was followed floor. Not passed out. Just weak and tired. When EMS called that she was able to carry out a conversation. Denies any chest pain no palpitation. Just rundown. Appetite has not been very good. No fever no chills. Denied denies any respiratory or urinary symptoms. Patient admitted with dehydration leading to asthenia and fall. Does not have felt to have any UTI. Today-patient is feeling much better. Tolerating a diet. Patient and daughter looking for patient to go to inpatient rehab. Review of systems: Was done for constitutional, cardiovascular, GI, pulmonary. relevant finding as above Active Medications Acetaminophen (Tylenol Tab) 650 mg PO Q6HR PRN PRN Reason: Mild Pain or Fever > 100.5 Amlodipine Besylate (Norvasc) 10 mg PO DAILY [facility] Last Admin: 07/12/19 09:44 Dose: 10 mg Documented by: Aripiprazole (Abilify) 5 mg PO DAILY [facility] Last Admin: 07/12/19 09:45 Dose: 5 mg Documented by: Cholecalciferol (Vitamin D3 (25 Mcg = 1000 Iu)) 2,000 unit PO DAILY [facility] Last Admin: 07/12/19 09:44 Dose: 2,000 unit Documented by: Duloxetine HCl (Cymbalta) 60 mg PO DAILY [facility] Last Admin: 07/12/19 09:44 Dose: 60 mg Documented by: Lisinopril/HCTZ (Zestoretic 10-12.5) 1 each PO BID [facility] Last Admin: 07/12/19 09:45 Dose: 1 each Documented by: Sodium Chloride (Saline 0.9%) 1,000 mls @ 100 mls/hr IV .Q10H [facility] Last Admin: 07/12/19 09:42 Dose: 100 mls/hr Documented by: Lorazepam (Ativan) 1 mg PO TID PRN PRN Reason: Anxiety Last Admin: 07/11/19 10:56 Dose: 1 mg Documented by: Metoprolol Tartrate (Lopressor) 12.5 mg PO BID [facility] Last Admin: 07/12/19 09:44 Dose: 12.5 mg Documented by: Naloxone HCl (Narcan) 0.2 mg IV Q2M PRN PRN Reason: Opioid Reversal Ondansetron HCl (Zofran) 4 mg IVP Q8HR PRN PRN Reason: Nausea And Vomiting Last Admin: 07/11/19 18:05 Dose: 4 mg Documented by: Pantoprazole Sodium (Protonix) 40 mg PO -BRKFST [facility] Last Admin: 07/12/19 09:44 Dose: 40 mg Documented by: Pravastatin Sodium (Pravachol) 20 mg PO [facility] Last Admin: 07/11/19 22:19 Dose: 20 mg Documented by: Primidone (Mysoline) 100 mg PO BID [facility] Last Admin: 07/12/19 09:44 Dose: 100 mg Documented by: Psyllium Hydrophilic Mucilloid (Metamucil) 6 gm PO DAILY [facility] Last Admin: 07/12/19 14:59 Dose: 6 gm Documented by: Quetiapine Fumarate (Seroquel) 25 mg PO [facility] Last Admin: 07/11/19 22:19 Dose: 25 mg Documented by: Senna/Docusate Sodium (Senokot-S) 1 each PO BID [facility] Last Admin: 07/12/19 09:44 Dose: 1 each Documented by: Tramadol HCl (Ultram) 50 mg PO Q6HR PRN PRN Reason: Pain Physical examination: VITAL SIGNS: 98.8, 79, 16, 154/65, 94% room air GENERAL: Propped up in bed, appearing more comfortable EYES: Pupils equal. Conjunctiva pale HEENT: External appearance of nose and ears normal, oral cavity grossly normal. Decreased hearing NECK: JVD not raised; masses not palpable. HEART: First and second heart sounds are normal; no edema. LUNGS: Respiratory rate normal; decreased breath sounds. ABDOMEN: Soft, nontender, liver spleen not palpable, no masses palpable. PSYCH: Able to answer simple questions INVESTIGATIONS, reviewed in the clinical context: Potassium 3.8 creatinine 0.74 Previous testing: White count 18.4 hemoglobin 12.5 potassium 4.81 3021.09 lactic acid 2.2 UA negative for leukoesterase and nitrite EKG tracing-no specific ST segment changes in lateral leads Chest x-ray film personally reviewed by me-right hemidiaphragm elevated. Some atelectasis. 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 Did say that the rehab at [facility]. The patient probably need long-term care at some point. As she is heading to is the same. At had a similar talk on the previous admission. Patient reported to the ECF on Sunday.
[2019-07-12] MEDS: ENOXAPARIN 40 MG/0.4 ML SYRINGE SQ SCH (19:09)
[2019-07-12] MEDS: PRAVASTATIN SODIUM 20 MG TAB PO SCH (21:13)
[2019-07-12] MEDS: LORazepam 1 MG TAB PO PRN (21:13)
[2019-07-12] MEDS: QUEtiapine 25 MG TAB PO SCH (21:14)
[2019-07-13] MEDS: PSYLLIUM HUSK 100% 6 GM PACKET PO SCH (09:19)
[2019-07-13] MEDS: PRIMIDONE 50 MG TAB PO SCH ×2 (09:22→21:07)
[2019-07-13] MEDS: ENOXAPARIN 40 MG/0.4 ML SYRINGE SQ SCH (09:23)
[2019-07-13] MEDS: amLODIPine 10 MG TAB PO SCH (09:23)
[2019-07-13] MEDS: SENNOSIDES-DOCUSATE SODIUM 1 EACH TAB PO SCH ×2 (09:23→21:07)
[2019-07-13] MEDS: PANTOPRAZOLE 40 MG TABLET PO SCH (09:23)
[2019-07-13] MEDS: DULoxetine HCL 60 MG CAPSULE.DR PO SCH (09:23)
[2019-07-13] MEDS: LISINOPRIL-HCTZ 10-12.5 MG 1 EACH TAB PO SCH ×2 (09:23→21:06)
[2019-07-13] MEDS: ARIPiprazole 5 MG TAB PO SCH (09:23)
[2019-07-13] MEDS: METOPROLOL TARTRATE 12.5 MG TAB PO SCH ×2 (09:23→21:06)
[2019-07-13] MEDS: LORazepam 1 MG TAB PO PRN (09:34)
[2019-07-13] MEDS ORDERED: MAGNESIUM HYDROXIDE 2,400 MG/10 ML CUP PO PRN (19:03)
[2019-07-13] MEDS: PRAVASTATIN SODIUM 20 MG TAB PO SCH (21:06)
[2019-07-13] MEDS: QUEtiapine 25 MG TAB PO SCH (21:07)
--- NOTE | 2019-07-13 23:11 | P.PN ---
Progress Note - Text Progress Note Date: 07/13/19 Interval history: This is a pleasant 89-year-old patient who follows with Dr. Mata,. 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 Patient lives at [facility] Normally uses a wheelchair. Did provide her meals.. Patient was in the hospital from June 28 through June 30. Had presented with asthenia weakness. Was diagnosed to have UTI and cystitis. Sent home with antibiotics. Patient presents with feeling weak and tired. EMS was called out. Patient was followed floor. Not passed out. Just weak and tired. When EMS called that she was able to carry out a conversation. Denies any chest pain no palpitation. Just rundown. Appetite has not been very good. No fever no chills. Denied denies any respiratory or urinary symptoms. Patient admitted with dehydration leading to asthenia and fall. Does not have felt to have any UTI. Today-laying in bed. Tired. Tolerating a diet. Awaiting to go to the F. Review of systems: Was done for constitutional, cardiovascular, GI, pulmonary. relevant finding as above Active Medications Acetaminophen (Tylenol Tab) 650 mg PO Q6HR PRN PRN Reason: Mild Pain or Fever > 100.5 Last Admin: 07/12/19 21:13 Dose: 650 mg Documented by: Amlodipine Besylate (Norvasc) 10 mg PO DAILY [facility] Last Admin: 07/13/19 09:23 Dose: 10 mg Documented by: Aripiprazole (Abilify) 5 mg PO DAILY [facility] Last Admin: 07/13/19 09:23 Dose: 5 mg Documented by: Duloxetine HCl (Cymbalta) 60 mg PO DAILY [facility] Last Admin: 07/13/19 09:23 Dose: 60 mg Documented by: Enoxaparin Sodium (Lovenox) 40 mg SQ DAILY [facility] Last Admin: 07/13/19 09:23 Dose: 40 mg Documented by: Lisinopril/HCTZ (Zestoretic 10-12.5) 1 each PO BID [facility] Last Admin: 07/13/19 21:06 Dose: 1 each Documented by: Lorazepam (Ativan) 1 mg PO TID PRN PRN Reason: Anxiety Last Admin: 07/13/19 09:34 Dose: 1 mg Documented by: Magnesium Hydroxide (Milk Of Magnesia) 2,400 mg PO DAILY PRN PRN Reason: Constipation Metoprolol Tartrate (Lopressor) 12.5 mg PO BID [facility] Last Admin: 07/13/19 21:06 Dose: 12.5 mg Documented by: Naloxone HCl (Narcan) 0.2 mg IV Q2M PRN PRN Reason: Opioid Reversal Ondansetron HCl (Zofran) 4 mg IVP Q8HR PRN PRN Reason: Nausea And Vomiting Last Admin: 07/11/19 18:05 Dose: 4 mg Documented by: Pantoprazole Sodium (Protonix) 40 mg PO AC-BRKFST [facility] Last Admin: 07/13/19 09:23 Dose: 40 mg Documented by: Pravastatin Sodium (Pravachol) 20 mg PO [facility] Last Admin: 07/13/19 21:06 Dose: 20 mg Documented by: Primidone (Mysoline) 100 mg PO BID [facility] Last Admin: 07/13/19 21:07 Dose: 100 mg Documented by: Psyllium Hydrophilic Mucilloid (Metamucil) 6 gm PO DAILY [facility] Last Admin: 07/13/19 09:19 Dose: 6 gm Documented by: Quetiapine Fumarate (Seroquel) 25 mg PO [facility] Last Admin: 07/13/19 21:07 Dose: 25 mg Documented by: Senna/Docusate Sodium (Senokot-S) 1 each PO BID [facility] Last Admin: 07/13/19 21:07 Dose: 1 each Documented by: Tramadol HCl (Ultram) 50 mg PO Q6HR PRN PRN Reason: Pain Physical examination: VITAL SIGNS: 98.2, 100, 14, 172.77, 93% room air GENERAL: Propped up in bed, tired EYES: Pupils equal. Conjunctiva pale HEENT: External appearance of nose and ears normal, oral cavity grossly normal. Decreased hearing NECK: JVD not raised; masses not palpable. HEART: First and second heart sounds are normal; no edema. LUNGS: Respiratory rate normal; decreased breath sounds. ABDOMEN: Soft, nontender, liver spleen not palpable, no masses palpable. PSYCH: Able to answer simple questions INVESTIGATIONS, reviewed in the clinical context: Potassium 3.8 creatinine 0.74 Previous testing: White count 18.4 hemoglobin 12.5 potassium 4.81 3021.09 lactic acid 2.2 UA negative for leukoesterase and nitrite EKG tracing-no specific ST segment changes in lateral leads Chest x-ray film personally reviewed by me-right hemidiaphragm elevated. Some atelectasis. 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 Hopefully can go to the ECF tomorrow. Care discussed with the patient.
[2019-07-14 04:31] LABS: Glucose,Whole Blood 168 mg/dL (75-99)
[2019-07-14] MEDS: METOPROLOL TARTRATE 12.5 MG TAB PO SCH ×2 (04:35→09:17)
[2019-07-14 05:14] VITALS: BP 168/82
[2019-07-14 07:43] VITALS: PULSE 76; RESP 18; TEMP 98.1
[2019-07-14] MEDS: amLODIPine 10 MG TAB PO SCH (09:14)
[2019-07-14] MEDS: DULoxetine HCL 60 MG CAPSULE.DR PO SCH (09:14)
[2019-07-14] MEDS: SENNOSIDES-DOCUSATE SODIUM 1 EACH TAB PO SCH (09:14)
[2019-07-14] MEDS: PANTOPRAZOLE 40 MG TABLET PO SCH (09:15)
[2019-07-14] MEDS: PRIMIDONE 50 MG TAB PO SCH (09:15)
[2019-07-14] MEDS: ARIPiprazole 5 MG TAB PO SCH (09:18)
[2019-07-14] MEDS: PSYLLIUM HUSK 100% 6 GM PACKET PO SCH (09:18)
[2019-07-14] MEDS: ENOXAPARIN 40 MG/0.4 ML SYRINGE SQ SCH (09:18)
[2019-07-14] MEDS: LISINOPRIL-HCTZ 10-12.5 MG 1 EACH TAB PO SCH (09:18)
--- NOTE | 2019-07-14 10:53 | P.CRDCN ---
History of Present Illness History of present illness: This is a pleasantly confused 89-year-old female past medical history significant for hypertension, dyslipidemia and dementia. She denies prior history of coronary artery disease and does not follow regularly with sieve repairer. We have been asked to see her in consultation secondary to an episode of atrial fibrillation with rapid ventricular rates last evening noted on telemetry. According to the patient she does not recall feeling any chest discomfort, palpitations, shortness of breath, dizziness, nausea, vomiting or diaphoresis. Telemetry tracings reviewed and she did convert spontaneously to sinus mechanism. She denies prior history of atrial fibrillation however at baseline she appears confused. She lives at [facility] and is essentially wheelchair-bound. She was brought to the hospital after falling out of her wheelchair. She has been diagnosed with dehydration secondary to poor oral intake. EKG on admission revealed sinus mechanism, mild ST and T-wave abnormality noted in the lateral leads. Consistent with previous EKGs in the past. Repeat EKG obtained last evening revealed atrial fibrillation with rapid ventricular response. Chest x-ray on admission is negative for an acute cardiopulmonary process. CT brain reveals atrophy with periventricular white matter ischemic changes, stable from previous study in May of this year. Laboratory data reviewed, WBC 18.4, hemoglobin 12.5, platelets 271, lactic acid on admission 2. 2 repeat today 1.0, sodium 133, potassium 3.8, creatinine 0.74 down from 1.09 on admission, troponin negative 1, proBNP 2290, TSH 5.41. Current daily cardiac medications include lisinopril/HCTZ 10/12.5 mg twice a day, Lopressor 12.5 mg twice a day, pravastatin 20 mg daily and amlodipine 10 mg daily. Echocardiogram obtained in 2014 reveals preserved LV systolic function with ejection fraction 50-55%, mild MR, mild TR and moderate pulmonary hypertension with an RVSP of 47 mmHg. At the time of my exam, patient denies COMPLAINTS although she seems confused.: CONSTITUTIONAL: Denies fever. Denies chills. EYES: Denies blurred vision. Denies vision changes. Denies eye pain. EARS, NOSE, MOUTH & THROAT: Denies headache. Denies sore throat. Denies ear pain. CARDIOVASCULAR: Denies chest pain. Denies shortness of breath. Denies orthopnea. Denies PND. Denies palpitations. RESPIRATORY: Denies cough. GASTROINTESTINAL: Denies abdominal pain. Denies diarrhea. Denies constipation. Denies nausea. Denies vomiting. MUSCULOSKELETAL: Denies myalgias. INTEGUMENTARY: Denies pruitis. Denies rash. NEUROLOGIC: Denies numbness. Denies tingling. Denies weakness. PSYCHIATRIC: Denies anxiety. Denies depression. ENDOCRINE: Denies fatigue. Denies weight change. Denies polydipsia. Denies polyurina. GENITOURINARY: Denies burning, hematuria or urgency with micturation. HEMATOLOGIC: Denies history of anemia. Denies bleeding. Blood pressure 160/82 heart rate 76 afebrile maintaining oxygen saturation on nasal cannula GENERAL: This is a 89-year-old female in no apparent distress at the time of my examination. HEENT: Head is atraumatic, normocephalic. Pupils are equal, round. Sclerae anicteric. Conjunctivae are clear. Mucous membranes of the mouth are moist. Neck is supple. There is no jugular venous distention. No carotid bruit is heard. LUNGS: Clear to auscultation no wheezes, rales or rhonchi. No chest wall tenderness is noted on palpation or with deep breathing. HEART: Regular rate and rhythm with systolic ejection murmur at the left sternal border, no rubs or gallops. S1 and S2 heard. ABDOMEN: Soft, nontender. Bowel sounds are heard. No organomegaly noted. EXTREMITIES: No evidence of peripheral edema and no calf tenderness noted. VASCULAR: Radial and dorsalis pedis pulses palpated, no evidence of clubbing. NEUROLOGIC: Patient is awake, alert and oriented to self. Does verbalize she came to the hospital after falling. ASSESSMENT New onset paroxysmal atrial fibrillation with rapid ventricular rate. Converted to sinus mechanism spontaneously. Acute dehydration secondary to poor oral intake Fall, sounds like a mechanical fall however unsure due to baseline confusion. Leukocytosis Acute kidney injury Hypertension Dyslipidemia PLAN She is maintaining sinus mechanism currently. She does not appear to be a good candidate for [facility] anti-coagulation given her mental status, advanced age and recent fall. Recommend increasing lopressor to 25 mg BID. Obtain 2D echocardiogram and doppler study to assess cardiac structure and function. Thank you kindly for this consultation. Nurse Practitioner note has been reviewed, I agree with a documented findings and plan of care. Patient was seen and examined. Past Medical History Past Medical History: CVA/TIA, GERD/Reflux, Hyperlipidemia, Hypertension, Osteoarthritis (OA), Renal Disease Additional Past Medical History / Comment(s): Pt recently admitted to [facility] on 06/28/19 with UTI with weakness/R lung atellectasis. 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 History of Any Multi-Drug Resistant Organisms: None Reported Past Surgical History: Appendectomy, Back Surgery, Bowel Resection, Hysterectomy, Joint Replacement, Orthopedic Surgery, Tonsillectomy Additional Past Surgical History / Comment(s): Bowel resection d/t merkels diverticulum along with appendectomy, abdominal surgery for adhesions/bowel resections, bilateral cataract removals/lens implants, L hip fracture with hemiarthroplasty, R total hip arthroplasty, L total shoulder, cervical fusion, EGD, colonoscopy. Past Anesthesia/Blood Transfusion Reactions: Postoperative Nausea & Vomiting (PONV) Additional Past Anesthesia/Blood Transfusion Reaction / Comment(s): Pt states years ago she had PONV but not with later surgeries. Pt's des states that the last couple of surgeries pt has had severe hallucinations post op for several days. Smoking Status: Never smoker - Past Family History Father Family Medical History: COPD, CVA/TIA Additional Family Medical History / Comment(s): Father was a smoker. Mother Family Medical History: Unable to Obtain Additional Family Medical History / Comment(s): Pt was raised by stepmother and does not know maternal mother's hx. Medications and Allergies Home Medications Medication Instructions Recorded Confirmed Type ARIPiprazole [Abilify] 5 mg PO DAILY 11/30/14 07/10/19 History DULoxetine HCL [Cymbalta] 60 mg PO DAILY 11/30/14 07/10/19 History amLODIPine [Norvasc] 10 mg PO DAILY #30 tab 12/03/14 07/10/19 Rx Pravastatin Sodium [Pravachol] 20 mg PO HS 04/22/18 07/10/19 History Primidone [Mysoline] 100 mg PO BID 04/22/18 07/10/19 History Acetaminophen [Tylenol] 500 - 1,000 mg PO Q4H PRN 05/30/18 07/10/19 History Cholecalciferol [Vitamin D3 (25 2,000 unit PO DAILY 05/30/18 07/10/19 History Mcg = 1000 Iu)] Cranberry Fruit Extract [Cranberry] 200 mg PO DAILY 05/30/18 07/10/19 History LORazepam [Ativan] 1 mg PO TID PRN #6 tab 06/03/18 07/10/19 Rx Lisinopril-Hctz 10-12.5 mg 1 tab PO BID #1 tab 06/03/18 07/10/19 Rx [Zestoretic 10-12.5] QUEtiapine FUMARATE [SEROquel] 25 mg PO HS #1 tablet 06/03/18 07/10/19 Rx traMADol HCL [Ultram] 50 mg PO Q6HR PRN #10 tablet 06/03/18 07/10/19 Rx Omeprazole 20 mg PO DAILY 09/11/18 07/10/19 History Sennosides-Docusate Sodium 1 tab PO BID 09/11/18 07/10/19 History [Senokot-S] Metoprolol Tartrate [Lopressor] 12.5 mg PO BID #60 tab 06/30/19 07/10/19 Rx Ensure 1 can PO W/BRKFST 07/10/19 07/10/19 History Allergies Allergy/AdvReac Type Severity Reaction Status Date / Time No Known Allergies Allergy Verified 07/10/19 17:07 Physical Exam Vitals: Vital Signs Temp Pulse Resp BP BP Pulse Ox 07/14/19 07:00 98.1 F 76 18 168/82 98 07/14/19 05:00 84 16 168/82 98 07/14/19 04:30 99 20 176/96 98 07/14/19 04:13 180 H 20 181/79 98 07/14/19 04:05 215 H 20 180/93 92 L 07/14/19 03:14 97.8 F 80 18 175/75 95 07/13/19 19:40 98.0 F 106 H 20 170/70 95 07/13/19 15:00 98.2 F 100 14 172/77 93 L Intake and Output 07/13/19 07/14/19 07/14/19 22:59 06:59 14:59 Other: Voiding Method Diaper Diaper Incontinent Incontinent # Voids 4 3 Results 07/10/19 10:00 07/12/19 06:54 Current Medications Generic Name Dose Route Start Last Admin Trade Name Freq PRN Reason Stop Dose Admin Acetaminophen 650 mg 07/10/19 13:02 07/12/19 21:13 Tylenol Tab PO 650 mg Q6HR PRN Administration Mild Pain or Fever > 100.5 Amlodipine Besylate 10 mg 07/11/19 09:00 07/14/19 09:14 Norvasc PO 10 mg DAILY [facility] Administration Aripiprazole 5 mg 07/11/19 09:00 07/14/19 09:18 Abilify PO 5 mg DAILY [facility] Administration Duloxetine HCl 60 mg 07/11/19 09:00 07/14/19 09:14 Cymbalta PO 60 mg DAILY [facility] Administration Enoxaparin Sodium 40 mg 07/12/19 18:15 07/14/19 09:18 Lovenox SQ 40 mg DAILY [facility] Administration Lisinopril/HCTZ 1 each 07/10/19 21:00 07/14/19 09:18 Zestoretic 10-12.5 PO 1 each BID [facility] Administration Lorazepam 1 mg 07/10/19 20:33 07/13/19 09:34 Ativan PO 1 mg TID PRN Administration Anxiety Magnesium Hydroxide 2,400 mg 07/13/19 19:03 Milk Of Magnesia PO DAILY PRN Constipation Metoprolol Tartrate 12.5 mg 07/14/19 04:30 07/14/19 09:17 Lopressor PO 12.5 mg TID [facility] Administration Naloxone HCl 0.2 mg 07/10/19 13:02 Narcan IV Q2M PRN Opioid Reversal Ondansetron HCl 4 mg 07/10/19 13:02 07/11/19 18:05 Zofran IVP 4 mg Q8HR PRN Administration Nausea And Vomiting Pantoprazole Sodium 40 mg 07/11/19 07:30 07/14/19 09:15 Protonix PO 40 mg AC-BRKFST [facility] Administration Pravastatin Sodium 20 mg 07/10/19 21:00 07/13/19 21:06 Pravachol PO 20 mg HS [facility] Administration Primidone 100 mg 07/10/19 21:00 07/14/19 09:15 Mysoline PO 100 mg BID [facility] Administration Psyllium Hydrophilic Mucilloid 6 gm 07/12/19 12:45 07/14/19 09:18 Metamucil PO 6 gm DAILY [facility] Administration Quetiapine Fumarate 25 mg 07/10/19 21:00 07/13/19 21:07 Seroquel PO 25 mg HS [facility] Administration Senna/Docusate Sodium 1 each 07/10/19 21:00 07/14/19 09:14 Senokot-S PO 1 each BID [facility] Administration Tramadol HCl 50 mg 07/10/19 20:33 Ultram PO Q6HR PRN Pain Intake and Output 07/13/19 07/14/19 07/14/19 22:59 06:59 14:59 Other: Voiding Method Diaper Diaper Incontinent Incontinent # Voids 4 3 07/10/19 10:00 07/12/19 06:54
[2019-07-14 11:03] VITALS: BMI 28.3
--- NOTE | 2019-07-14 12:51 | P.DS ---
Providers Date of admission: 07/10/19 13:02 Expected date of discharge: 07/14/19 Attending physician: Adiel Posey Consults: 07/14/19 04:26 Consult Physician Urgent Consulting Provider: Kwesi Reynoso Consult Reason/Comments: afib rvr Do you want consulting provider notified?: Yes Primary care physician: [facility] Course: Hospital course: This is a pleasant 89-year-old patient who follows with Dr. Mata,. 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 Patient lives at [facility] Normally uses a wheelchair. Did provide her meals.. Patient was in the hospital from June 28 through June 30. Had presented with asthenia weakness. Was diagnosed to have UTI and cystitis. Sent home with antibiotics. Patient presents with feeling weak and tired. EMS was called out. Patient was followed floor. Not passed out. Just weak and tired. When EMS called that she was able to carry out a conversation. Denies any chest pain no palpitation. Just rundown. Appetite has not been very good. No fever no chills. Denied denies any respiratory or urinary symptoms. Patient admitted with dehydration leading to asthenia and fall. Does not have felt to have any UTI. Had an episode of A. fib with rapid ventricular rate. Then went back into sinus rhythm. Dose of beta jessica increased. Because of patient being very unsteady not felt to be candidate for anticoagulation. Today discuss at length with the patient daughter questions were answered. Patient eventually will need long-term care. Discussion and discharge planning more than 35 minutes Consultation: Dr. Fuchs from cardiology Physical examination: VITAL SIGNS: 98.1, 76, 18, 160-82, 98% on 2 L GENERAL: Sitting up comfortable EYES: Pupils equal. Conjunctiva pale HEENT: External appearance of nose and ears normal, oral cavity grossly normal. Decreased hearing NECK: JVD not raised; masses not palpable. HEART: First and second heart sounds are normal; no edema. LUNGS: Respiratory rate normal; decreased breath sounds. ABDOMEN: Soft, nontender, liver spleen not palpable, no masses palpable. PSYCH: Able to answer simple questions INVESTIGATIONS, reviewed in the clinical context: Potassium 3.8 creatinine 0.74 Previous testing: White count 18.4 hemoglobin 12.5 potassium 4.81 3021.09 lactic acid 2.2 UA negative for leukoesterase and nitrite EKG tracing-no specific ST segment changes in lateral leads Chest x-ray film personally reviewed by me-right hemidiaphragm elevated. Some atelectasis. On the report -nerve root stimulator on the left Discharge diagnosis: -Progressive medical debility likely from decreased oral intake -Paroxysmal atrial fibrillation rapid ventricular rate, back in sinus rhythm, patient not felt to be candidate for decortication. 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 -Chronic medical debility, uses a wheelchair -Chronically elevated right diaphragm Disposition: [facility] Patient Condition at Discharge: Undetermined Plan - Discharge Summary Discharge Rx Participant: No New Discharge Prescriptions: New Psyllium Husk 100% [Metamucil Packet] 6 gm PO DAILY packet Continue DULoxetine HCL [Cymbalta] 60 mg PO DAILY ARIPiprazole [Abilify] 5 mg PO DAILY amLODIPine [Norvasc] 10 mg PO DAILY #30 tab Pravastatin Sodium [Pravachol] 20 mg PO HS Primidone [Mysoline] 100 mg PO BID Cranberry Fruit Extract [Cranberry] 200 mg PO DAILY Acetaminophen [Tylenol] 500 - 1,000 mg PO Q4H PRN PRN Reason: Pain QUEtiapine FUMARATE [SEROquel] 25 mg PO HS #1 tablet Sennosides-Docusate Sodium [Senokot-S] 1 tab PO BID Omeprazole 20 mg PO DAILY Ensure 1 can PO W/BRKFST LORazepam [Ativan] 1 mg PO TID PRN #6 tab PRN Reason: Anxiety traMADol HCL [Ultram] 50 mg PO Q6HR PRN #10 tablet PRN Reason: Pain Changed Metoprolol Tartrate [Lopressor] 25 mg PO BID #60 tab Discontinued Cholecalciferol [Vitamin D3 (25 Mcg = 1000 Iu)] 2,000 unit PO DAILY No Action Lisinopril-Hctz 10-12.5 mg [Zestoretic 10-12.5] 1 tab PO BID #1 tab Discharge Medication List ARIPiprazole [Abilify] 5 mg PO DAILY 11/30/14 [History] DULoxetine HCL [Cymbalta] 60 mg PO DAILY 11/30/14 [History] amLODIPine [Norvasc] 10 mg PO DAILY #30 tab 12/03/14 [Rx] Pravastatin Sodium [Pravachol] 20 mg PO HS 04/22/18 [History] Primidone [Mysoline] 100 mg PO BID 04/22/18 [History] Acetaminophen [Tylenol] 500 - 1,000 mg PO Q4H PRN 05/30/18 [History] Cranberry Fruit Extract [Cranberry] 200 mg PO DAILY 05/30/18 [History] Lisinopril-Hctz 10-12.5 mg [Zestoretic 10-12.5] 1 tab PO BID #1 tab 06/03/18 [Rx] QUEtiapine FUMARATE [SEROquel] 25 mg PO HS #1 tablet 06/03/18 [Rx] Omeprazole 20 mg PO DAILY 09/11/18 [History] Sennosides-Docusate Sodium [Senokot-S] 1 tab PO BID 09/11/18 [History] Ensure 1 can PO W/BRKFST 07/10/19 [History] LORazepam [Ativan] 1 mg PO TID PRN #6 tab 07/14/19 [Rx] Metoprolol Tartrate [Lopressor] 25 mg PO BID #60 tab 07/14/19 [Rx] Psyllium Husk 100% [Metamucil Packet] 6 gm PO DAILY packet 07/14/19 [Rx] traMADol HCL [Ultram] 50 mg PO Q6HR PRN #10 tablet 07/14/19 [Rx] Follow up Appointment(s)/Referral(s): Edi Mata DO [Primary Care Provider] - 1-2 days
--- NOTE | 2019-07-14 19:00 | ECHOF ---
Referral Reason:new onset afib MEASUREMENTS -------- HEIGHT: 162.6 cm WEIGHT: 74.8 kg BP: 168/82 IVSd: 1.4 cm (0.6 - 1.1) LVIDd: 3.1 cm (3.9 - 5.3) LVPWd: 1.7 cm (0.6 - 1.1) IVSs: 2.1 cm LVIDs: 1.9 cm LVPWs: 2.5 cm LAESV Index (A-L): 18.36 ml/m Ao Diam: 2.3 cm (2.0 - 3.7) AV Cusp: 1.5 cm (1.5 - 2.6) LA Diam: 3.5 cm (2.7 - 3.8) MV EXCURSION: 10.065 mm (> 18.000) MV EF SLOPE: 25 mm/s (70 - 150) EPSS: 1.0 cm MV E Sohail: 0.73 m/s MV DecT: 228 ms MV A Sohail: 1.12 m/s MV E/A Ratio: 0.66 AR PHT: 375 ms RAP: 5.00 mmHg RVSP: 43.24 mmHg FINDINGS -------- Sinus rhythm with extra systolic beats. This was a technically adequate study. The left ventricular size is normal. There is moderate concentric left ventricular hypertrophy. O verall left ventricular systolic function is normal with, an EF between 55 - 60 %. The right ventricle is normal in size. The right ventricular systolic function is normal. Normal LA size by volume 22+/-6 ml/m2. RA appears enlarged. Aortic valve is trileaflet and is mildly thickened. There is mild aortic regurgitation. The mitral valve is normal. The mitral valve leaflets are mildly thickened. Mild mitral regurgita tion is present. The tricuspid valve appears structurally normal. Mild tricuspid regurgitation present. There is m ild pulmonary hypertension. The right ventricular systolic pressure, as measured by Doppler, is 43. 24mmHg. There is no pulmonic regurgitation present. The aortic root size is normal. Normal inferior vena cava with normal inspiratory collapse consistent with estimated right atrial pre ssure of 5 mmHg. There is no pericardial effusion. CONCLUSIONS -------- 1. Sinus rhythm with extra systolic beats. 2. This was a technically adequate study. 3. The left ventricular size is normal. 4. There is moderate concentric left ventricular hypertrophy. 5. Overall left ventricular systolic function is normal with, an EF between 55 - 60 %. 6. The right ventricle is normal in size. 7. The right ventricular systolic function is normal. 8. Normal LA size by volume 22+/-6 ml/m2. 9. RA appears enlarged. 10. Aortic valve is trileaflet and is mildly thickened. 11. There is mild aortic regurgitation. 12. The mitral valve is normal. 13. The mitral valve leaflets are mildly thickened. 14. Mild mitral regurgitation is present. 15. The tricuspid valve appears structurally normal. 16. Mild tricuspid regurgitation present. 17. There is mild pulmonary hypertension. 18. The right ventricular systolic pressure, as measured by Doppler, is 43.24mmHg. 19. There is no pulmonic regurgitation present. 20. The aortic root size is normal. 21. Normal inferior vena cava with normal inspiratory collapse consistent with estimated right atrial pressure of 5 mmHg. 22. There is no pericardial effusion. [employer] CRANE INSPECTOR: Lin Thomas RDCS
[2019-07-14] MEDS ORDERED: METOPROLOL TARTRATE 25 MG TAB PO SCH (21:00)
== END 2019-07-14 15:35 | DRG 641 ==
LOC: EC 08:57 → 4SSUR 13:02
PROVIDERS: ADMIT Hospitalist; ATTEND Hospitalist
DX: E86.0 Dehydration (principal); N17.9 Acute kidney failure, unspecified; J98.11 Atelectasis; I48.0 Paroxysmal atrial fibrillation; E87.2 Acidosis; E78.5 Hyperlipidemia, unspecified; F03.90 Unspecified dementia, unspecified severity, without behavioral disturbance, psychotic disturbance, mood disturbance, and anxiety; F41.9 Anxiety disorder, unspecified; I10 Essential (primary) hypertension; I27.20 Pulmonary hypertension, unspecified; K21.9 Gastro-esophageal reflux disease without esophagitis; M19.91 Primary osteoarthritis, unspecified site; W05.0XXA Fall from non-moving wheelchair, initial encounter; Z79.899 Other long term (current) drug therapy; Z82.5 Family history of asthma and other chronic lower respiratory diseases; Z86.73 Personal history of transient ischemic attack (TIA), and cerebral infarction without residual deficits; Z90.710 Acquired absence of both cervix and uterus; Z98.42 Cataract extraction status, left eye; Z98.41 Cataract extraction status, right eye; Z96.1 Presence of intraocular lens; Z96.643 Presence of artificial hip joint, bilateral; Z99.3 Dependence on wheelchair; R53.81 Other malaise; G72.9 Myopathy, unspecified; N28.89 Other specified disorders of kidney and ureter
CPT/HCPCS: 36415; 70450; 71046; 80048; 80053; 81003; 82140; 82550; 83605; 83735; 83880; 84443; 84484; 85025; 85610; 85730; 87040; 93005; 93306; 94760; 96361; 96365; 96375; 99285

== ENCOUNTER → 2019-10-13 | Outpatient (CLI) | payer MEDICARE ==
[2019-10-13 11:22] LABS: Basophils # (A) 0.1 k/uL (0-0.2); Basophils % (A) 1 %; Eosinophils # (A) 0.5 k/uL (0-0.7); Eosinophils % (A) 6 %; HCT 45.9 % (34.0-46.0); Lymphocytes # (A) 1.9 k/uL (1.0-4.8); Lymphocytes % (A) 22 %; MCH 30.5 pg (25.0-35.0); MCHC 32.8 g/dL (31.0-37.0); MCV 93.1 fL (80.0-100.0); Mean Platelet Volume 8.3; Monocytes # (A) 0.5 k/uL (0-1.0); Monocytes % (A) 6 %; Neutrophils # (A) 5.6 k/uL (1.3-7.7); Neutrophils % (A) 63 %; Platelet Count 244 k/uL (150-450); RBC 4.93 m/uL (3.80-5.40); RDW 13.3 % (11.5-15.5); WBC 8.8 k/uL (3.8-10.6)
[2019-10-13 21:54] LABS: ALT 22 U/L (8-44); AST 38 U/L (13-35); African American GFR (CKD) 75.8 (60.0-200.0); Albumin/Globulin Ratio 2.35 (1.60-3.17); Alkaline Phosphatase 120 U/L (41-126); BUN/Creat Ratio 26.25 Ratio (12.00-20.00); Calcium 10.1 mg/dL (8.7-10.3); Carbon Dioxide 22.8 mmol/L (21.6-31.8); Chloride 92 mmol/L (96-109); Chol/HDL Ratio 2.16; Cholesterol 190 mg/dL (0-200); Folate, Serum >24.0 ng/mL; Glucose 119 mg/dL (70-110); LDL Cholesterol,Calculated 74.6 mg/dL (0.0-131.0); Non-African American GFR(CKD) 65.4 (60.0-200.0); Potassium 5.3 mmol/L (3.5-5.5); Sodium 130 mmol/L (135-145); Total Bilirubin 0.3 mg/dL (0.3-1.2); Total Protein 6.7 g/dL (6.2-8.2)
== END | disposition home or self-care (01) ==
LOC: LABWHC1 10:36
PROVIDERS: ATTEND Nurse Practitioner Family
DX: I10 Essential (primary) hypertension (principal); E78.2 Mixed hyperlipidemia; K21.9 Gastro-esophageal reflux disease without esophagitis; N39.0 Urinary tract infection, site not specified
CPT/HCPCS: 36415; 80053; 80061; 80188; 82607; 82746; 83735; 85025

== ENCOUNTER → 2019-10-21 | Outpatient (CLI) | payer MEDICARE ==
[2019-10-21 19:41] LABS: African American GFR (CKD) 65.7 (60.0-200.0); Anion Gap 10.7 mmol/L (4.00-12.00); BUN/Creat Ratio 27.78 Ratio (12.00-20.00); Calcium 8.9 mg/dL (8.7-10.3); Carbon Dioxide 30.3 mmol/L (21.6-31.8); Non-African American GFR(CKD) 56.7 (60.0-200.0); Potassium 4.3 mmol/L (3.5-5.5)
== END | disposition home or self-care (01) ==
LOC: LABWHC1 10:55
PROVIDERS: ATTEND Family Medicine
DX: I10 Essential (primary) hypertension (principal)
CPT/HCPCS: 36415; 80048; 83930

== ENCOUNTER 2019-11-04 02:31 | Emergency (ER) | payer MEDICARE ==
[2019-11-04 02:44] VITALS: RESP 16; TEMP 97.7
--- NOTE | 2019-11-04 02:58 | ED ---
Weakness HPI - General Chief complaint: Weakness Stated complaint: Weakness Time Seen by Provider: 11/04/19 02:41 Source: EMS Mode of arrival: EMS - History of Present Illness Initial comments: Patient is an 89-year-old female, With past medical history of hypertension, renal disease, GERD, presenting from [facility]. Patient was sent in for increased weakness and altered mental status. Patient is usually and all times one to 2 and per EMS is a known 1. Report was not called then to our facility from [facility]. Patient is not complaining of pain. She is not vomiting. She has been afebrile. She has no complaints at this time. Upon arrival to ER, BP is slightly elevated at 181/85, rest of vitals were normal. - Related Data Home Medications Medication Instructions Recorded Confirmed ARIPiprazole [Abilify] 5 mg PO DAILY 11/30/14 07/10/19 DULoxetine HCL [Cymbalta] 60 mg PO DAILY 11/30/14 07/10/19 Pravastatin Sodium [Pravachol] 20 mg PO HS 04/22/18 07/10/19 Primidone [Mysoline] 100 mg PO BID 04/22/18 07/10/19 Acetaminophen [Tylenol] 500 - 1,000 mg PO Q4H PRN 05/30/18 07/10/19 Cranberry Fruit Extract [Cranberry] 200 mg PO DAILY 05/30/18 07/10/19 Omeprazole 20 mg PO DAILY 09/11/18 07/10/19 Sennosides-Docusate Sodium 1 tab PO BID 09/11/18 07/10/19 [Senokot-S] Ensure 1 can PO W/BRKFST 07/10/19 07/10/19 Previous Rx's Medication Instructions Recorded amLODIPine [Norvasc] 10 mg PO DAILY #30 tab 12/03/14 Lisinopril-Hctz 10-12.5 mg 1 tab PO BID #1 tab 06/03/18 [Zestoretic 10-12.5] QUEtiapine FUMARATE [SEROquel] 25 mg PO HS #1 tablet 06/03/18 LORazepam [Ativan] 1 mg PO TID PRN #6 tab 07/14/19 Metoprolol Tartrate [Lopressor] 25 mg PO BID #60 tab 07/14/19 Psyllium Husk 100% [Metamucil 6 gm PO DAILY packet 07/14/19 Packet] traMADol HCL [Ultram] 50 mg PO Q6HR PRN #10 tablet 07/14/19 Cephalexin [Keflex] 500 mg PO BID 7 Days #14 cap 11/04/19 Allergies Allergy/AdvReac Type Severity Reaction Status Date / Time No Known Allergies Allergy Verified 07/10/19 17:07 Review of Systems ROS Statement: Those systems with pertinent positive or pertinent negative responses have been documented in the HPI. ROS Other: All systems not noted in ROS Statement are negative. Past Medical History Past Medical History: CVA/TIA, GERD/Reflux, Hyperlipidemia, Hypertension, Osteoarthritis (OA), Renal Disease Additional Past Medical History / Comment(s): Pt recently admitted to [facility] on 06/28/19 with UTI with weakness/R lung atellectasis. 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 History of Any Multi-Drug Resistant Organisms: None Reported Past Surgical History: Appendectomy, Back Surgery, Bowel Resection, Hysterectomy, Joint Replacement, Orthopedic Surgery, Tonsillectomy Additional Past Surgical History / Comment(s): Bowel resection d/t merkels diverticulum along with appendectomy, abdominal surgery for adhesions/bowel resections, bilateral cataract removals/lens implants, L hip fracture with hemiarthroplasty, R total hip arthroplasty, L total shoulder, cervical fusion, EGD, colonoscopy. Past Anesthesia/Blood Transfusion Reactions: Postoperative Nausea & Vomiting (PONV) Additional Past Anesthesia/Blood Transfusion Reaction / Comment(s): Pt states years ago she had PONV but not with later surgeries. Pt's des states that the last couple of surgeries pt has had severe hallucinations post op for several days. Past Psychological History: Anxiety, Depression Smoking Status: Never smoker - Past Family History Father Family Medical History: COPD, CVA/TIA Additional Family Medical History / Comment(s): Father was a smoker. Mother Family Medical History: Unable to Obtain Additional Family Medical History / Comment(s): Pt was raised by stepmother and does not know maternal mother's hx. General Exam - General Exam Comments Initial Comments: GENERAL: Well-appearing, well-nourished and in no acute distress. HEAD: Atraumatic, normocephalic. EYES: Pupils equal round and reactive to light, extraocular movements intact, sclera anicteric, conjunctiva are normal. ENT: TMs normal, nares patent, oropharynx clear without exudates. Moist mucous membranes. NECK: Normal range of motion, supple without lymphadenopathy or JVD. LUNGS: Breath sounds clear to auscultation bilaterally and equal. No wheezes rales or rhonchi. HEART: Regular rate and rhythm without murmurs, rubs or gallops. ABDOMEN: Soft, nontender, normoactive bowel sounds. No guarding, no rebound. No masses appreciated. : deferred. EXTREMITIES: Normal range of motion, no pitting or edema. No clubbing or cyanosis. NEUROLOGICAL: Cranial nerves II through XII grossly intact. Normal speech. A&O x self, at baseline. PSYCH: Normal mood, normal affect. SKIN: Warm, Dry, normal turgor, no rashes or lesions noted. Course Vital Signs 11/04/19 11/04/19 11/04/19 02:35 04:39 06:02 Temperature 97.7 F Pulse Rate 101 H 92 77 Respiratory 16 16 16 Rate Blood Pressure 181/85 191/89 199/100 O2 Sat by Pulse 95 94 L 96 Oximetry EKG Findings - EKG Comments: EKG Findings:: Ventricular rate 100, VA interval 138, QTC of 479. Normal sinus rhythm, nonspecific ST and T-wave abnormalities. No acute elevations. Similar to previous EKG on 07/12/2019. Medical Decision Making - Medical Decision Making Patient is a 89-year-old female presenting for increase in weakness from [facility]. Vital signs are stable upon arrival, afebrile. Exam was unremarkable, EKG shows no acute changes. Lab work reveals leukocytosis 15.4, slight hyponatremia at 129, this is chronic in nature. Urine reveals significant WBCs and clumps, positive bacteria. Urine culture is pending at this time. Patient will be given 1 g of Rocephin and will be started on Keflex for UTI. Patient's BP is elevated, we will give her her regular morning hypertensive medication of lisinopril and metoprolol. She is stable for discharge at this time and will be released back to [facility]. Case discussed with Dr. uGajardo. - Lab Data Result diagrams: 11/04/19 03:40 11/04/19 03:40 Lab Results 11/04/19 11/04/19 11/04/19 Range/Units 02:53 03:40 03:40 WBC 15.4 H (3.8-10.6) k/uL RBC 4.36 (3.80-5.40) m/uL Hgb 13.0 (11.4-16.0) gm/dL Hct 40.7 (34.0-46.0) % MCV 93.5 (80.0-100.0) fL MCH 29.9 (25.0-35.0) pg MCHC 32.0 (31.0-37.0) g/dL RDW 13.8 (11.5-15.5) % Plt Count 196 (150-450) k/uL Neutrophils % 86 % Lymphocytes % 7 % Monocytes % 4 % Eosinophils % 1 % Basophils % 1 % Neutrophils # 13.2 H (1.3-7.7) k/uL Lymphocytes # 1.0 (1.0-4.8) k/uL Monocytes # 0.7 (0-1.0) k/uL Eosinophils # 0.1 (0-0.7) k/uL Basophils # 0.1 (0-0.2) k/uL Sodium 129 L (137-145) mmol/L Potassium 4.5 (3.5-5.1) mmol/L Chloride 96 L (98-107) mmol/L Carbon Dioxide 24 (22-30) mmol/L Anion Gap 9 mmol/L BUN 25 H (7-17) mg/dL Creatinine 0.86 (0.52-1.04) mg/dL Est GFR (CKD-EPI)AfAm 70 (>60 ml/min/1.73 sqM) Est GFR (CKD-EPI)NonAf 61 (>60 ml/min/1.73 sqM) Glucose 166 H (74-99) mg/dL Calcium 10.1 (8.4-10.2) mg/dL Total Bilirubin 0.6 (0.2-1.3) mg/dL AST 38 H (14-36) U/L ALT 19 (4-34) U/L Alkaline Phosphatase 103 (38-126) U/L Total Protein 6.3 (6.3-8.2) g/dL Albumin 3.7 (3.5-5.0) g/dL Urine Color Yellow Urine Appearance Cloudy H (Clear) Urine pH 6.0 (5.0-8.0) Ur Specific [place] 1.015 (1.001-1.035) Urine Protein 1+ H (Negative) Urine Glucose (UA) Negative (Negative) Urine Ketones 1+ H (Negative) Urine Blood Negative (Negative) Urine Nitrite Negative (Negative) Urine Bilirubin Negative (Negative) Urine Urobilinogen 8.0 (<2.0) mg/dL Ur Leukocyte Esterase Moderate H (Negative) Urine RBC 1 (0-5) /hpf Urine WBC 82 H (0-5) /hpf Urine WBC Clumps Rare H (None) /hpf Amorphous Sediment Rare H (None) /hpf Urine Bacteria Occasional H (None) /hpf Urine Mucus Rare H (None) /hpf Disposition Clinical Impression: Urinary tract infection, Generalized weakness Disposition: HOME SELF-CARE Condition: Stable Instructions (If sedation given, give patient instructions): Urinary Tract Infection in Older Adults (ED) Additional Instructions: Please return to the Emergency Department if symptoms worsen or any other concerns. Take antibiotic as prescribed. Follow-up with PCP in 1-3 days. Prescriptions: Cephalexin [Keflex] 500 mg PO BID 7 Days #14 cap Is patient prescribed a controlled substance at d/c from ED?: No Referrals: Edi Mata DO [Primary Care Provider] - 1-2 days
[2019-11-04 03:10] LABS: Amorphous Sediment,Urine Rare /hpf; Appearance,Urine Cloudy (Clear); Bacteria,Urine Occasional /hpf; Bilirubin,Urine Negative (Negative); Blood,Urine Negative (Negative); Color,Urine Yellow; Glucose,Urine (UA) Negative (Negative); Ketones,Urine 1+ (Negative); Leukocyte Esterase,Urine Moderate (Negative); Mucus,Urine Rare /hpf; Nitrite,Urine Negative (Negative); Protein,Urine 1+ (Negative); RBC,Urine 1 /hpf (0-5); Specific Gravity,Urine 1.015 (1.001-1.035); WBC,Urine 82 /hpf (0-5)
[2019-11-04 03:52] LABS: Basophils # (A) 0.1 k/uL (0-0.2); Basophils % (A) 1 %; Eosinophils # (A) 0.1 k/uL (0-0.7); Eosinophils % (A) 1 %; HCT 40.7 % (34.0-46.0); Lymphocytes % (A) 7 %; MCH 29.9 pg (25.0-35.0); MCV 93.5 fL (80.0-100.0); Mean Platelet Volume 8.5; Monocytes # (A) 0.7 k/uL (0-1.0); Monocytes % (A) 4 %; Neutrophils # (A) 13.2 k/uL (1.3-7.7); Neutrophils % (A) 86 %; Platelet Count 196 k/uL (150-450); RBC 4.36 m/uL (3.80-5.40); RDW 13.8 % (11.5-15.5); WBC 15.4 k/uL (3.8-10.6)
[2019-11-04 04:13] LABS: Albumin 3.7 g/dL (3.5-5.0); Calcium 10.1 mg/dL (8.4-10.2); Potassium 4.5 mmol/L (3.5-5.1); Total Bilirubin 0.6 mg/dL (0.2-1.3); Total Protein 6.3 g/dL (6.3-8.2)
[2019-11-04] MEDS ORDERED: cefTRIAXone 1,000 MG VIAL (IM USE) IM STA (04:17)
[2019-11-04] MEDS ORDERED: METOPROLOL TARTRATE 25 MG TAB PO STA (04:21)
[2019-11-04] MEDS ORDERED: LISINOPRIL-HCTZ 10-12.5 MG 1 EACH TAB PO STA (04:21)
[2019-11-04 06:03] VITALS: BP 199/100; PULSE 77
== END 2019-11-04 06:10 | disposition home or self-care (01) ==
LOC: EC 02:31
DX: N39.0 Urinary tract infection, site not specified (principal); R53.1 Weakness; E87.1 Hypo-osmolality and hyponatremia; R41.82 Altered mental status, unspecified; I10 Essential (primary) hypertension; K21.9 Gastro-esophageal reflux disease without esophagitis; E78.5 Hyperlipidemia, unspecified; M19.90 Unspecified osteoarthritis, unspecified site; F32.9 Major depressive disorder, single episode, unspecified; F41.9 Anxiety disorder, unspecified; Z79.899 Other long term (current) drug therapy; Z96.641 Presence of right artificial hip joint; Z98.1 Arthrodesis status; Z86.73 Personal history of transient ischemic attack (TIA), and cerebral infarction without residual deficits
CPT/HCPCS: 36415; 93005; 80053; 85025; 81001; 87086; 99285; 96372; J0696